=== PATIENT | female | born 1990 | race Caucasian/White ===

== ENCOUNTER 2020-05-17 10:27 | Emergency (ER) | payer OTHER, SELFPAY ==
[2020-05-17 10:47] VITALS: BP 124/77; PULSE 95; RESP 16; TEMP 36.6; O2SAT 100
--- NOTE | 2020-05-17 11:31 | ED.FEMALEGU ---
HPI - Female Genitourinary General Chief complaint: Urogenital-Female Stated complaint: Uti Time Seen by Provider: 05/17/20 11:25 Source: patient Mode of arrival: ambulatory Limitations: no limitations History of Present Illness HPI Narrative: Nubia Lazar is a 29 yo female with PMH of lupus, IBS,, PTSD, who comes to express care with complaints of dysuria and frequency for the last 2 to 3 days. She just finished a course of antibiotics for UTI less than 2 weeks ago, she took a week of Keflex Related Data Home Medications Medication Instructions Recorded Confirmed buspirone 5 mg tablet 5 mg PO TID 12/05/19 05/17/20 Allergies Allergy/AdvReac Type Severity Reaction Status Date / Time human papillomavirus Allergy Unknown Rash Verified 05/17/20 10:55 vaccine, quadr lamotrigine Allergy Unknown Unknown Verified 05/17/20 10:55 Sulfa (Sulfonamide Allergy Unknown Rash Verified 05/17/20 10:55 Antibiotics) tetanus and diphtheria Allergy Unknown Unknown Verified 05/17/20 10:55 toxoids fruit, all except oranges, Allergy Severe Other Uncoded 01/06/20 14:13 okay for fruit sauce/canned Review of Systems Review of Systems: Narrative: CONSTITUTIONAL: Denies fever, chills, sweats. EYES: Denies visual changes, redness, discharge. ENT: Denies rhinorrhea, congestion, sore throat, otalgia. CARDIOVASCULAR: Denies chest pain, palpitations, edema. RESPIRATORY: Denies dyspnea, wheezing, cough GASTROINTESTINAL: Denies abdominal pain, nausea, vomiting, diarrhea. GENITOURINARY: Has dysuria, no hematuria, abnormal discharge SKIN: Denies rash or itching. NEUROLOGIC: Denies numbness, or focal weakness. PSYCHIATRIC: Denies anxiety or depression. 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 There is no relevant family history pertinent to the presenting complaint. Exam Narrative: Exam Narrative: GENERAL: This is a well-nourished, well-developed patient, in mild distress. HEAD: normocephalic, atraumatic. EYES: Sclera clear/white. Vision is grossly intact. EARS: External ears normal. Hearing grossly intact. NOSE: External nose normal without nasal discharge, nares without redness, no rhinorrhea. THROAT: Mucous membranes moist, posterior pharynx NECK: Neck supple, non-tender CARDIOVASCULAR: Regular rate and rhythm without murmurs, gallops, or rubs. RESPIRATORY: Clear to auscultation. Breath sounds equal bilaterally. No wheezes, rales, or rhonchi. GASTROINTESTINAL: Abdomen soft, non-tender, SKIN: warm, intact with no suspicious lesions or rash, good texture and turgor. NEURO: awake, alert, and oriented to person, place and time. There were no obvious focal neurologic abnormalities. Steady gait EXTREMITIES: Normal range of motion. BACK: Mild tender without deformity Course Course Emergency Course: UA shows positive leukocytes and nitrites-started on Cipro 500 twice daily x7 days (recent use of Keflex) Patient instructed to hydrate Follow-up with PCP at your Vital Signs Vital signs: Vital Signs Temperature 97.8 F 05/17/20 10:47 Pulse Rate 95 05/17/20 10:47 Respiratory Rate 16 05/17/20 10:47 Blood Pressure 124/77 05/17/20 10:47 Pulse Oximetry 100 05/17/20 10:47 Temperature 97.8 F 05/17/20
== END 2020-05-17 11:45 | disposition home or self-care (01) ==
PROVIDERS: Emergency Provider Nurse Practitioner; PCP Family Medicine
DX: N30.01 Acute cystitis with hematuria (principal); M32.9 Systemic lupus erythematosus, unspecified; F41.9 Anxiety disorder, unspecified
CPT/HCPCS: 81003; 87077; 87086; 87088; 87186; 99213; G0463

== ENCOUNTER 2021-04-22 12:00 | Emergency (ER) | payer OTHER, SELFPAY ==
--- NOTE | ~2021-04-22 | XR_ITS ---
XR knee RT min 4V 04/22/2021 12:38 Indication: Right knee pain Procedure: 4 views right knee Comparison: No prior studies for comparison. Findings: No fracture, subluxation or dislocation. No significant joint space narrowing. No significa nt joint effusion. No foreign bodies. Impression: 1: No significant bone or joint abnormality. Reviewed, dictated and finalized at location B. Impression: 1: No significant bone or joint abnormality.
[2021-04-22 12:05] VITALS: BP 145/87; PULSE 75; RESP 16; TEMP 36.8; O2SAT 99
--- NOTE | 2021-04-22 12:19 | ED.LOWEXIN ---
HPI - Extremity Injury (Lower) General Chief Complaint: Extremity Injury, Lower Stated Complaint: INJURED R KNEE Time Seen by Provider: 04/22/21 12:19 Source: patient, RN notes reviewed and old records reviewed Mode of arrival: ambulatory Limitations: no limitations History of Present Illness HPI Narrative: 30 year old female presents to [facility] care with complaints of injury to her right knee this morning around 0930. She states that she tripped in her driveway falling directly onto her right knee on concrete with pain localized to area directly below patella. Patient states increase pain to her right knee with ambulation and bending of knee reports crunchy feeling to knee with ambulation. Patient has history of Lupus and past history of ACL repair to her left knee. Patient did take Naprosyn this morning with no improvement in her discomfort. no obvious swelling or discoloration to her right knee. MD complaint: knee injury Onset (ago): hour(s) (3 hours ago) Injury: Right: knee Type of Injury: blunt Place: home (drive way) Severity: moderate Severity scale (1-10): 6 Relieving factors: nothing Exacerbating factors: weight bearing and other (bending of right knee) Context: fall and direct blow Associated symptoms: other (states crunchy feeling when ambulates) Other symptoms: none Treatments prior to arrival: NSAIDS Related Data Home Medications Medication Instructions Recorded Confirmed buspirone 5 mg tablet 5 mg PO TID 12/05/19 04/20/21 vortioxetine 5 mg tablet 5 mg PO DAILY 03/04/21 04/20/21 bupropion HCl [Wellbutrin XL] 300 mg PO QAM 04/22/21 04/22/21 hydroxychloroquine [Plaquenil] 200 mg PO BID 04/22/21 04/22/21 Allergies Allergy/AdvReac Type Severity Reaction Status Date / Time human papillomavirus Allergy Unknown Rash Verified 04/22/21 12:20 vaccine, quadr lamotrigine Allergy Unknown Unknown Verified 04/22/21 12:20 Sulfa (Sulfonamide Allergy Unknown Rash Verified 04/22/21 12:20 Antibiotics) tetanus and diphtheria Allergy Unknown Unknown Verified 04/22/21 12:20 toxoids fruit, all except oranges, Allergy Severe Other Uncoded 04/22/21 12:20 okay for fruit sauce/canned Review of Systems Review of Systems: Narrative: CONSTITUTIONAL: Denies fever, chills, or sweats. EYES: Denies visual changes, redness, or discharge. ENT: Denies rhinorrhea, congestion, sore throat, or otalgia. CARDIOVASCULAR: Denies chest pain, palpitations, or edema. RESPIRATORY: Denies cough or dyspnea. GASTROINTESTINAL: Denies abdominal pain, nausea, vomiting, or diarrhea. GENITOURINARY: Denies dysuria or hematuria. SKIN: Denies rash or itching. MUSCULOSKELETAL: Denies back pain,positive for right knee pain with point tenderness under right patella, or myalgia. NEUROLOGIC: Denies headache, numbness, or weakness. PSYCHIATRIC: Positive for history of anxiety or depression. 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 Seronegative rheumatoid arthritis of multiple sites (~11/2016) Surgical History Surgical History (Updated 04/22/21 @ 12:44 by Naina Magallanes NP) History of cholecystectomy History of repair of anterior cruciate ligament of left knee Previous section Family History Family History Grandparent Diabetes mellitus Family history of cardiovascular disease Father Hypertension Family history of elevated bl
== END 2021-04-22 12:52 | disposition home or self-care (01) ==
PROVIDERS: Emergency Provider Registered Nurse; PCP Family Medicine
DX: S80.01XA Contusion of right knee, initial encounter (principal); W01.0XXA Fall on same level from slipping, tripping and stumbling without subsequent striking against object, initial encounter; F17.210 Nicotine dependence, cigarettes, uncomplicated
CPT/HCPCS: 73564; 99213; G0463

== ENCOUNTER 2022-03-07 14:35 | Emergency (ER) | payer OTHER, SELFPAY ==
[2022-03-07 14:38] VITALS: BP 138/82; PULSE 85; RESP 16; TEMP 36.8; O2SAT 98
--- NOTE | 2022-03-07 14:38 | ED.URI ---
HPI - URI/Sore Throat General Chief Complaint: Upper Respiratory Infection Stated Complaint: congestion cough diahhrea chills Time Seen by Provider: 03/07/22 14:38 Source: patient and RN notes reviewed History of Present Illness HPI Narrative: Patient is a 31-year-old female who presents the urgent care with complaints of nasal congestion, cough, chills and intermittent diarrhea. Patient states that started with a nasal congestion approximately 2 weeks ago, seem to improve, and then worsened on Monday. Patient did take an at home COVID test which was negative. Patient wanted to rule out influenza. No other acute complaints. Denies any recent fevers, nausea or vomiting. No other acute complaints. No acute distress noted. Patient aware of the plan of care. Some parts of this dictation were generated by voice recognition software and may contain typographical and/or grammatical inaccuracies. Related Data Home Medications Medication Instructions Recorded Confirmed azathioprine 100 mg PO DAILY 03/07/22 03/07/22 gabapentin 300 mg PO DAILY 03/07/22 03/07/22 Allergies Allergy/AdvReac Type Severity Reaction Status Date / Time human papillomavirus Allergy Unknown Rash Verified 03/07/22 14:47 vaccine, quadr lamotrigine Allergy Unknown Unknown Verified 03/07/22 14:47 Sulfa (Sulfonamide Allergy Unknown Rash Verified 03/07/22 14:47 Antibiotics) tetanus and diphtheria Allergy Unknown Unknown Verified 03/07/22 14:47 toxoids fruit, all except oranges, Allergy Severe Other Uncoded 04/22/21 12:20 okay for fruit sauce/canned Review of Systems Review of Systems: CONSTITUTIONAL: Reports of chills and sweats EYES: Denies visual changes, redness, or discharge. ENT: Reports of nasal congestion, postnasal drainage CARDIOVASCULAR: Denies chest pain, palpitations, or edema. RESPIRATORY: Reports of intermittent cough without dyspnea GASTROINTESTINAL: Reports of loose stools without abdominal pain, nausea or vomiting GENITOURINARY: Denies dysuria or hematuria. SKIN: Denies rash or itching. MUSCULOSKELETAL: Denies back pain, joint pain, or myalgia. NEUROLOGIC: Denies headache, numbness, or weakness. All other systems reviewed are negative, except as documented in HPI. [facility] Past Medical History Medical History (Updated 03/07/22 @ 15:08 by Marni E. Springman, FURNITURE SERVICER) Bilateral carpal tunnel syndrome Hidradenitis suppurativa Low back pain Muscle strain of left upper back Pustulosis palmaris et plantaris SAPHO syndrome (~11/2016) Synovitis, acne, pustulosis, hyperostosis, osteitis (SAPHO) syndrome is a rare chronic inflammatory disorder of bone, joint, and skin characterized by synovitis, osteitis, hyperostosis, and enthesitis, typically with pain, swelling, and tenderness in affected areas. Seronegative rheumatoid arthritis of multiple sites (~11/2016) Surgical History Surgical History (Updated 04/22/21 @ 12:44 by Naina Magallanes NP) History of cholecystectomy History of repair of anterior cruciate ligament of left knee Previous section Family History Family History Grandparent Diabetes mellitus Family history of cardiovascular disease Father Hypertension Family history of elevated blood lipids Social History Social History (Updated 04/22/21 @ 12:48 by Naina Magallanes NP) Smoking packs per day: 0.5 Smoking cigarettes per day: 10.0 Years smoked: 6 Smoking pack-years: 3.00 Smoking status: Current every day smoker Tobacco type: cigarettes Alcohol intake: current Alcohol use details: social rare Substance use: current Substance use type: marijuana Gender identity (if verbalized by the patient): Female Comments At the time of my signature, I reviewed and agree with the nursing past medical, surgical, social, and family history. There is no relevant family history pertinent to the patient complaint. Exam Narrativ
== END 2022-03-07 15:10 | disposition home or self-care (01) ==
PROVIDERS: Emergency Provider Nurse Practitioner Family; PCP Family Medicine
DX: J00 Acute nasopharyngitis [common cold] (principal); J45.909 Unspecified asthma, uncomplicated; F17.210 Nicotine dependence, cigarettes, uncomplicated; M06.09 Rheumatoid arthritis without rheumatoid factor, multiple sites
CPT/HCPCS: 87804; 99213; G0463

== ENCOUNTER 2022-03-14 10:26 | Emergency (ER) | payer OTHER, SELFPAY ==
--- NOTE | ~2022-03-14 | XR_ITS ---
EXAMINATION: XR chest 2V DATE: 03/14/2022 12:39 INDICATION: Shortness of breath TECHNIQUE: PA and lateral views of the chest were obtained. COMPARISON: Chest radiograph dated 01/21/2019 FINDINGS: The lungs remain clear with no focal airspace opacities, pulmonary edema, pleural effusion or pneumot horax. The cardiomediastinal silhouette is normal. Cholecystectomy clips in right upper quadrant. IMPRESSION: 1. No acute cardiopulmonary disease. Reviewed, dictated and finalized at location A.
[2022-03-14 10:42] VITALS: BP 170/91; PULSE 84; RESP 18; TEMP 36.5; O2SAT 99
[2022-03-14 12:28] VITALS: BP 154/102; PULSE 72; RESP 18; O2SAT 100
--- NOTE | 2022-03-14 12:34 | ED.GENADULT ---
HPI - General Adult General Chief complaint: Upper Respiratory Infection Stated complaint: sick x 3 weeks Time Seen by Provider: 03/14/22 11:25 Source: patient and RN notes reviewed Mode of arrival: ambulatory Limitations: no limitations History of Present Illness HPI narrative: 31-year-old female smoker with history of asthma presents to the emergency department for evaluation of cough and cold symptoms that have been ongoing for the past 3 weeks. Patient states that for this period time she has had nasal congestion cough and intermittent shortness of breath. Patient does use an albuterol inhaler but also does continue to smoke. Patient did have follow-up with her primary care physician and was started on a course of prednisone. Patient was also tested for COVID and flu which were both negative. Related Data Home Medications Medication Instructions Recorded Confirmed azathioprine 100 mg PO DAILY 03/07/22 03/07/22 gabapentin 300 mg PO DAILY 03/07/22 03/07/22 Allergies Allergy/AdvReac Type Severity Reaction Status Date / Time human papillomavirus Allergy Unknown Rash Verified 03/07/22 14:47 vaccine, quadr lamotrigine Allergy Unknown Unknown Verified 03/07/22 14:47 Sulfa (Sulfonamide Allergy Unknown Rash Verified 03/07/22 14:47 Antibiotics) tetanus and diphtheria Allergy Unknown Unknown Verified 03/07/22 14:47 toxoids fruit, all except oranges, Allergy Severe Other Uncoded 04/22/21 12:20 okay for fruit sauce/canned Review of Systems Review of Systems: CONSTITUTIONAL: Denies fever, chills, or sweats. EYES: Denies visual changes, redness, or discharge. ENT: Denies rhinorrhea, congestion, sore throat, or otalgia. CARDIOVASCULAR: Denies chest pain, palpitations, or edema. RESPIRATORY: See HPI GASTROINTESTINAL: Denies abdominal pain, nausea, vomiting, or diarrhea. GENITOURINARY: Denies dysuria or hematuria. SKIN: Denies rash or itching. MUSCULOSKELETAL: Denies back pain, joint pain, or myalgia. NEUROLOGIC: Denies headache, numbness, or weakness. [facility] Past Medical History Medical History (Updated 03/14/22 @ 13:01 by Alpesh Steward MD) Bilateral carpal tunnel syndrome Hidradenitis suppurativa Low back pain Muscle strain of left upper back Pustulosis palmaris et plantaris SAPHO syndrome (~11/2016) Synovitis, acne, pustulosis, hyperostosis, osteitis (SAPHO) syndrome is a rare chronic inflammatory disorder of bone, joint, and skin characterized by synovitis, osteitis, hyperostosis, and enthesitis, typically with pain, swelling, and tenderness in affected areas. Seronegative rheumatoid arthritis of multiple sites (~11/2016) Surgical History Surgical History (Updated 04/22/21 @ 12:44 by Naina Magallanes NP) History of cholecystectomy History of repair of anterior cruciate ligament of left knee Previous section Family History Family History Grandparent Diabetes mellitus Family history of cardiovascular disease Father Hypertension Family history of elevated blood lipids Social History Social History (Updated 04/22/21 @ 12:48 by Naina Magallanes NP) Smoking packs per day: 0.5 Smoking cigarettes per day: 10.0 Years smoked: 6 Smoking pack-years: 3.00 Smoking status: Current every day smoker Tobacco type: cigarettes Alcohol intake: current Alcohol use details: social rare Substance use: current Substance use type: marijuana Gender identity (if verbalized by the patient): Female Exam Narrative: APPEARANCE: Well appearing, no pain, no distress, well-nourished. HEAD: normocephalic, atraumatic. EYES: PERRLA/EOMI, conjunctivae clear. NOSE: Normal no drainage EARS:TMS clear with good light reflex. THROAT: Pharynx clear, no exudate. NECK: Supple. No adenopathy, no masses. RESPIRATORY: Airway patent, respirations nonlabored. Clear to auscultation bilaterally, no rales, rhonchi, wheezing. CARDIOVAS
[2022-03-14 13:05] VITALS: PULSE 88; RESP 18; O2SAT 98
== END 2022-03-14 13:05 | disposition home or self-care (01) ==
PROVIDERS: Emergency Provider Emergency Medicine; PCP Family Medicine
DX: J18.9 Pneumonia, unspecified organism (principal); R09.81 Nasal congestion; J45.909 Unspecified asthma, uncomplicated; F17.210 Nicotine dependence, cigarettes, uncomplicated; M04.8 Other autoinflammatory syndromes; M06.09 Rheumatoid arthritis without rheumatoid factor, multiple sites
CPT/HCPCS: 71046; 99283

== ENCOUNTER 2025-01-23 11:12 | Emergency (ER) | payer MEDICAID, SELFPAY ==
[2025-01-23 11:16] VITALS: BP 144/86; PULSE 84; RESP 20; TEMP 36.6; O2SAT 100
--- NOTE | 2025-01-23 11:43 | ED.GENADULT ---
HPI - General Adult General Chief complaint: Nausea/Vomiting/Diarrhea Stated complaint: no appetite/nausea Time Seen by Provider: 01/23/25 11:44 Source: patient, RN notes reviewed and old records reviewed Mode of arrival: ambulatory Limitations: no limitations History of Present Illness HPI narrative: 34-year-old female presents to the [facility] with complaints of nausea and vomiting. Patient also reports occasional abdominal cramping. States that she is under a lot more stress than normal, states that her significant other and her broke up approximately 10 days ago. Patient reports Monday and January had some nausea and vomiting issues Patient also reports last Monday had some nausea vomiting issues as well as had some vomiting today. No treatment prior to arrival. Denies any significant abdominal pain. No CVA tenderness. No urinary symptoms Patient reports history of IBS Onset (ago): day(s) () Related Data Allergies Allergy/AdvReac Type Severity Reaction Status Date / Time human papillomavirus Allergy Unknown Rash Verified 01/23/25 11:21 vaccine, quadr lamotrigine Allergy Unknown Unknown Verified 01/23/25 11:21 Sulfa (Sulfonamide Allergy Unknown Rash Verified 01/23/25 11:21 Antibiotics) tetanus and diphtheria Allergy Unknown Unknown Verified 01/23/25 11:21 toxoids fruit, all except oranges, Allergy Severe Other Uncoded 01/23/25 11:21 okay for fruit sauce/canned Review of Systems Review of Systems: All systems reviewed & are unremarkable except as noted in HPI and below Constitutional: Constitutional: Reports no additional constitutional complaints ENT: Reports system reviewed and no additional complaints, except as documented Cardiovascular: Cardiovascular: Reports no additional cardiovascular complaints, Denies chest pain and Denies dyspnea Respiratory: Respiratory: Reports no additional respiratory complaints, Denies chest congestion, Denies cough and Denies dyspnea Gastrointestinal: Gastrointestinal: Reports as per HPI, Reports nausea and Reports vomiting Musculoskeletal: Musculoskeletal: Reports no additional musculoskeletal complaints Integumentary/Breasts: Skin/Breast: Reports system reviewed and no additional complaints, except as docu PMFSH Past Medical History Medical History Vaginismus Hidradenitis Yeast vaginitis Bartholin's gland abscess Low back pain Muscle strain of left upper back Libido, decreased Hidradenitis suppurativa Seronegative rheumatoid arthritis of multiple sites (~11/2016) SAPHO syndrome (~11/2016) Synovitis, acne, pustulosis, hyperostosis, osteitis (SAPHO) syndrome is a rare chronic inflammatory disorder of bone, joint, and skin characterized by synovitis, osteitis, hyperostosis, and enthesitis, typically with pain, swelling, and tenderness in affected areas. Pustulosis palmaris et plantaris Bilateral carpal tunnel syndrome Surgical History Surgical History History of repair of anterior cruciate ligament of left knee Previous section History of cholecystectomy Family History Family History Grandparent Diabetes mellitus Family history of cardiovascular disease Father Hypertension Family history of elevated blood lipids Social History Social History Smoking packs per day: 0.5 Smoking cigarettes per day: 10.0 Years smoked: 6 Smoking pack-years: 3.00 Smoking status: Never smoker Tobacco type: cigarettes Alcohol intake: never Alcohol use details: rare Substance use: current Substance use type: marijuana Last use: today 08/22/24 Do You Feel Safe in your Home?: Yes Lack of Transportation: No Lack of Food: Sometimes True Current Housing: I Have Housing Concerned About Future Housing: No Difficulty Paying Gas/Electric Bills: No Difficulty Paying for Meds: No Currently Unemployed: No Education: Bachelor's Degree Difficulty w/ Childcare or Family Care: No Living arrangements: with family Gender identity (if verbalized by the patient): Female Comments At the time of my signature, I reviewed and agree with the nursing past medical, surgical, social, and family history. There is no relevant family history pertinent to the patient complaint. Exam Const: General: cooperative, comfortable, no acute distress, well developed, alert, tired appearing and well nourished Nutritional Appearance: well nourished and obese Orientation/consciousness: patient oriented x3 Limitations: no limitations HENMT: Head: normal to inspection Ears: hearing grossly normal bilaterally, external ears normal, TM's normal bilaterally, EAC's normal, mastoids normal and no periauricular adenopathy Mouth: Yes Normal oral and palatal mucosa present, Yes lip normal, Yes tongue normal and Yes moist mucous membranes Throat: posterior oropharynx normal, uvula midline and no uvular edema Eyes: General: appearance normal, both eyes and all related structures Alignment and Position: alignment normal Neck: Neck: normal visual inspection, full ROM, no lymphadenopathy and no meningeal signs Chest: Chest palpation & inspection: normal inspection of the chest Resp: Effort & Inspection: normal respiratory effort and able to speak in complete sentences Auscultation: clear to auscultation bilaterally, no crackles, no rales, no rhonchi and no wheezes Cardio: Rate: regular rate GI: GI Palp: No abdominal tenderness and Yes Soft to palpation Skin: General skin exam: normal color and no rashes or lesions noted Neuro: General: patient oriented x3, gait normal, moves all extremities and no meningeal signs Cognition (Neuro): normal cognition Speech: normal speech Gait exam (Neuro): Normal gait present Extrem: General: normal to inspection, full ROM, capillary refill normal and normal gait Psych: Appearance: grossly normal and well kempt Mental Status: mental status grossly normal Speech and movement: Normal speech and movement present and Clear speech present Affect: normal affect Attitude: cooperative Course Course Level of Care: Express Care Visit Vital Signs Vital signs: Vital Signs Temperature 97.9 F 01/23/25 11:16 Pulse Rate 84 01/23/25 11:16 Respiratory Rate 20 01/23/25 11:16 Blood Pressure 144/86 H 01/23/25 11:16 Pulse Oximetry 100 01/23/25 11:16 Oxygen Delivery Room Air 01/23/25 11:16 Temperature 97.9 F 01/23/25 11:16 Pulse Rate 84 01/23/25 11:16 Respiratory Rate 20 01/23/25 11:16 Blood Pressure 144/86 H 01/23/25 11:16 Pulse Oximetry 100 01/23/25 11:16 Oxygen Delivery Room Air 01/23/25 11:16 Reviewed Medical Decision Making MDM Narrative Medical decision making narrative: Patient sitting comfortably in exam room. Nontoxic, vitals stable. Patient in no acute distress Patient presents for nausea vomiting. Reports that it started after harder significant other broke up. Reports on Tuesdays and she gets nauseous and has vomiting. Had vomiting today. Reports epigastric cramping. Denies any other pain. Unable to reproduce pain with palpation discussed signs and symptoms, conservative treatment. 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 Patient has appointment with primary care provider in 13 days. Discharge instructions reviewed with patient, as well as provided in writing per nursing staff. The instructions also include specific and strict return/GO TO THE ER as well as f/u information. All questions have been answered, and the patient deny any further questions with discharge and discharge plan. Some parts of this dictation were generated by voice recognition software and may contain typographical and/or grammatical inaccuracies. Differential Diagnosis Differential Diagnosis: Anxiety, depression IBS, acute nausea vomiting, gastroenteritis Medical Records Medical records reviewed: Yes I reviewed the external patient's medical records. Vital Signs Vital Signs: Vital Signs Temperature 97.9 F 01/23/25 11:16 Pulse Rate 84 01/23/25 11:16 Respiratory Rate 20 01/23/25 11:16 Blood Pressure 144/86 H 01/23/25 11:16 Pulse Oximetry 100 01/23/25 11:16 Oxygen Delivery Room Air 01/23/25 11:16 Temperature 97.9 F 01/23/25 11:16 Pulse Rate 84 01/23/25 11:16 Respiratory Rate 20 01/23/25 11:16 Blood Pressure 144/86 H 01/23/25 11:16 Pulse Oximetry 100 01/23/25 11:16 Oxygen Delivery Room Air 01/23/25 11:16 Reviewed Lab Data Lab results reviewed: Yes I reviewed the patient's lab results. Labs: Reviewed Critical Care Time Critical Care Time Critical Care Time: No Discharge Plan Discharge Clinical Impression: History of IBS Nausea & vomiting Qualifiers: Vomiting type: unspecified Qualified Code(s): R11.2 - Nausea with vomiting, unspecified Patient Disposition: Home, Self-Care Condition: Stable Instructions: Antibiotic Form, Acute Nausea and Vomiting (DC) Additional Instructions: keep your diet very simple. Nothing fried, greasy, spicy are highly processed. Increase your water intake. Include Gatorade and Pedialyte. Avoid anything caffeinated, carbonated or high in sugar take Pepcid daily on an empty stomach take Zofran as needed for nausea follow-up with your primary care provider as already scheduled for new or worsening symptoms go directly to the emergency room Patient Language: [place] Prescriptions: New famotidine [Pepcid] 20 mg tablet 20 mg PO DAILY Qty: 30 0RF ondansetron 4 mg tablet,disintegrating 4 mg PO Q8H PRN (Reason: nausea and vomiting) Qty: 7 0RF No Action buspirone 5 mg tablet 10 mg PO TID PRN (Reason: anxiety) Qty: 60 5RF Zepbound 2.5 mg/0.5 mL pen injector 2.5 mg subcut WEEKLY Qty: 2 5RF albuterol sulfate 90 mcg/actuation HFA aerosol inhaler 2 puff INHALATION QID PRN (Reason: shortness of breath or wheezing) Qty: 8 2RF prednisone 50 mg tablet 50 mg PO DAILY Qty: 5 0RF azithromycin 250 mg tablet See Rx Instructions PO .COMPLEX Qty: 6 0RF Rx Instructions: For 250 mg dose pack: take 500 mg today (day 1), then 250 mg for 4 days (days 2-5) PO codeine-guaifenesin 10-100 mg/5 mL liquid 5 ml PO Q6H PRN (Reason: cough) Qty: 120 0RF gabapentin 300 mg capsule 300 mg PO DAILY Qty: 90 2RF norethindrone-e.estradiol-iron [Loestrin Fe 1.5/30 (28-Day)] 1.5 mg-30 mcg (21)/75 mg (7) tablet 1 tablet PO DAILY Qty: 84 2RF Addyi 100 mg tablet 100 mg PO QHS Qty: 30 3RF Follow-up/Referrals: Marissa Parrish MD [Primary Care Provider] - 1 Week ([facility] care follow up ) Stand Alone Forms: Work/School Release IP Time of Disposition: 11:59
--- OUTSIDE RECORDS SUMMARY | 2025-01-23 13:07 | XMS_ITS | Data Portability ---
Author Organization [facility] SYLVIEJanet Address [address] [place] [address] Assessment No assessment recorded. Plan of Treatment Reminders Order Date Submit Date Provider Last Modified By Organization Details Last Modified Time Details Appointments None recorded. Lab pap, IG + reflex HR HPV (16+18) 2016 017 LIVE [facility], [address] [place], [place] [address]kaden Rocky, [facility] [address], [place], [address], 7 12:09:10 bacterial vaginosis + vaginitis panel, vaginal 2016 017 LIVE [facility], [address] [facility] [address], [address], [place], [address], 7 07:14:53 CBC w/ auto diff 2016 017 LIVE [facility], [address] [facility] [address], [address], [place], [address], 7 07:13:04 bacterial vaginosis + vaginitis panel, vaginal 2016 017 LIVE [facility], [address] [facility], [address], [place], [address], 7 07:06:57 urinalysis , dipstick 2015 016 LIVE In-Office Order, Internal Use Only DO Not Attach Compendium DO Not Attach Compendium, Do Not Delete/merge, [id number] 6 18:24:47 Referral None recorded. Procedures None recorded. Surgeries None recorded. Imaging None recorded. Medication Orders Sprintec (28) 0.25 mg-35 mcg tablet 2016 017 okolade [id number], [address], [place], [id number], 7 16:10:59 Patient TargetsNo targets recorded. Patient Instructions Encounter Date Encounter Id Patient Instructions Last Modified By Organization Details Last Modified Time 11/08/2016 [id number] preeclampsia: care instructions [email or web address] Not available 11/09/2016 10:19:03 Will schedule th e patient for IOL for mild pre-eclampsia. Patient was instructed to go labor and delivery for IOL immediately. [email or web address] Not available 11/08/2016 17:39:42 11/30/2016 [id number] Vlad were removed. Patient will follow up for care in 6 weeks. Rx for breast pump was given to the patient as per patient request. [email or web address] Not available 11/30/2016 10:48:15 01/11/2017 [id number] edinburgh depression scale* LIVE Not available 01/11/2017 18:11:37 learning about control: combination pills [email or web address] Not available 01/11/2017 16:10:59 Rx for Sprintec was sent to the pharmacy. Safe sex counseling was done. Patient was advised against the use of alcohol, tobacco and drugs. BSE was reviewed and recommended. Excercise and weight loss was recommended. Side effect profile of OCPs was discussed with the patient. Patient was informed of possible side effects including but not limited to blood clots, HTN, liver disease and gallbladder disease. [email or web address] Not available 01/11/2017 15:31:10 01/13/2017 [id number] heavy menstrual periods: care instructions [email or web address] Not available 01/13/2017 18:08:59 CBC was ordered. Patient was started on OCPs 3 days prior. [email or web address] Not available 01/13/2017 17:48:48 09/05/2017 [id number] Safe sex counseling was done. Vaginitis panel was ordered. Patient was advised against the use of alcohol, tobacco and drugs. Pap smear was sent. Excercise and weight loss was reviewed. BSE was reviewed and recommended. [email or web address] Not available 09/05/2017 17:49:44 Reason for Referral None Reported. Results Created Date Observation Date Name Description Value Unit Range Abnormal Flag Note LastModifiedBy Organization Detail LastModifiedTime 01/12/20 17 01/11/2017 edinb urgh postn atal depre ssion scale * Score 6/10 Not Available In-Office Order Internal Use Only DO Not Attach Compendium DO Not Attach Compendium, Do Not Delete/merge, [id number] 01/11/2017 15:09:57 11/08/20 16 11/08/2016 urina lysis , dipst ick Leukocytes Small Not Available In-Offi ce Order Internal Use Only DO Not Attach Compendium DO Not Attach Compendium, Do Not Delete/merge, [id number] 11/08/2016 16:32:56 11/08/20 16 11/08/2016 urina lysis , dipst ick Nitrite negati ve Not Available In-Office Order Internal Use Only DO Not Attach Compendium DO Not Attach Compendium, Do Not Delete/merge, [id number] 11/08/2016 16:32:56 11/08/20 16 11/08/2016 urina lysis , dipst ick Urobilinogen .2 Not Available In-Of fice Order Internal Use Only DO Not Attach Compendium DO Not Attach Compendium, Do Not Delete/merge, [id number] 11/08/2016 16:32:56 11/08/20 16 11/08/2016 urina lysis , dipst ick Protein 30 Not Available In-Office Order Internal Use Only DO Not Attach Compendium DO Not Attach Compendium, Do Not Delete/merge, [id number] 11/08/2016 16:32:56 11/08/20 16 11/08/2016 urina lysis , dipst ick pH 7.0 Not Available In-Office Order Internal Use Only DO Not Attach Compendium DO Not Attach Compendium, Do Not Delete/merge, [id number] 11/08/2016 16:32:56 11/08/20 16 11/08/2016 urina lysis , dipst ick Blood Negati ve Not Available In-Office Order Internal Use Only DO Not Attach Compendium DO Not Attach Compendium, Do Not Delete/merge, [id number] 11/08/2016 16:32:56 11/08/20 16 11/08/2016 urina lysis , dipst ick Specific [place] 1.020 Not Available In-Off ice Order Internal Use Only DO Not Attach Compendium DO Not Attach Compendium, Do Not Delete/merge, 11/08/2016 16:32:56 11/08/20 16 11/08/2016 urina lysis , dipst ick Ketone Large (80) Not Available In-Office Order Internal Use Only DO Not Attach Compendium DO Not Attach Compendium, Do Not Delete/merge, 11/08/2016 16:32:56 11/08/20 16 11/08/2016 urina lysis , dipst ick Bilirubin Negati ve Not Available In-Office Order Internal Use Only DO Not Attach Compendium DO Not Attach Compendium, Do Not Delete/merge, 11/08/2016 16:32:56 11/08/20 16 11/08/2016 urina lysis , dipst ick Glucose Negati ve Not Available In-Office Order Internal Use Only DO Not Attach Compendium DO Not Attach Compendium, Do Not Delete/merge, 11/08/2016 16:32:56 11/08/20 16 11/08/2016 urina lysis , dipst ick Appearance Slight ly Cloudy Not Available In-Office Order Internal Use Only DO Not Attach Compendium DO Not Attach Compendium, Do Not Delete/merge, 11/08/2016 16:32:56 11/08/20 16 11/08/2016 urina lysis , dipst ick Color Pale Yellow Not Available In-Office Order Internal Use Only DO Not Attach Compendium DO Not Attach Compendium, Do Not Delete/merge, 11/08/2016 16:32:56 11/01/20 16 11/01/2016 urina lysis , dipst ick Leukocytes Trace Not Available In-Offi ce Order Internal Use Only DO Not Attach Compendium DO Not Attach Compendium, Do Not Delete/merge, 11/01/2016 16:07:43 11/01/20 16 11/01/2016 urina lysis , dipst ick Nitrite negati ve Not Available In-Office Order Internal Use Only DO Not Attach Compendium DO Not Attach Compendium, Do Not Delete/merge, [id number] 11/01/2016 16:07:43 11/01/20 16 11/01/2016 urina lysis , dipst ick Urobilinogen 1 Not Available In-Of fice Order Internal Use Only DO Not Attach Compendium DO Not Attach Compendium, Do Not Delete/merge, [id number] 11/01/2016 16:07:43 11/01/20 16 11/01/2016 urina lysis , dipst ick Protein 30 Not Available In-Office Order Internal Use Only DO Not Attach Compendium DO Not Attach Compendium, Do Not Delete/merge, [id number] 11/01/2016 16:07:43 11/01/20 16 11/01/2016 urina lysis , dipst ick pH 7.0 Not Available In-Office Order Internal Use Only DO Not Attach Compendium DO Not Attach Compendium, Do Not Delete/merge, [id number] 11/01/2016 16:07:43 11/01/20 16 11/01/2016 urina lysis , dipst ick Blood Negati ve Not Available In-Office Order Internal Use Only DO Not Attach Compendium DO Not Attach Compendium, Do Not Delete/merge, [id number] 11/01/2016 16:07:43 11/01/20 16 11/01/2016 urina lysis , dipst ick Specific [place] 1.020 Not Available In-Off ice Order Internal Use Only DO Not Attach Compendium DO Not Attach Compendium, Do Not Delete/merge, [id number] 11/01/2016 16:07:43 11/01/20 16 11/01/2016 urina lysis , dipst ick Ketone Negati ve Not Available In-Office Order Internal Use Only DO Not Attach Compendium DO Not Attach Compendium, Do Not Delete/merge, [id number] 11/01/2016 16:07:43 11/01/20 16 11/01/2016 urina lysis , dipst ick Bilirubin Negati ve Not Available In-Office Order Internal Use Only DO Not Attach Compendium DO Not Attach Compendium, Do Not Delete/merge, [id number] 11/01/2016 16:07:43 11/01/20 16 11/01/2016 urina lysis , dipst ick Glucose Negati ve Not Available In-Office Order Internal Use Only DO Not Attach Compendium DO Not Attach Compendium, Do Not Delete/merge, [id number] 11/01/2016 16:07:43 11/01/20 16 11/01/2016 urina lysis , dipst ick Appearance Clear Not Available In-Offi ce Order Internal Use Only DO Not Attach Compendium DO Not Attach Compendium, Do Not Delete/merge, [id number] 11/01/2016 16:07:43 11/01/20 16 11/01/2016 urina lysis , dipst ick Color Yellow Not Available In-Office Order Internal Use Only DO Not Attach Compendium DO Not Attach Compendium, Do Not Delete/merge, [id number] 11/01/2016 16:07:43 10/25/20 16 10/25/2016 urina lysis , dipst ick Leukocytes Small Not Available In-Offi ce Order Internal Use Only DO Not Attach Compendium DO Not Attach Compendium, Do Not Delete/merge, 10/25/2016 16:29:35 10/25/20 16 10/25/2016 urina lysis , dipst ick Nitrite negati ve Not Available In-Office Order Internal Use Only DO Not Attach Compendium DO Not Attach Compendium, Do Not Delete/merge, 10/25/2016 16:29:35 10/25/20 16 10/25/2016 urina lysis , dipst ick Urobilinogen .2 Not Available In-Of fice Order Internal Use Only DO Not Attach Compendium DO Not Attach Compendium, Do Not Delete/merge, 10/25/2016 16:29:35 10/25/20 16 10/25/2016 urina lysis , dipst ick Protein Negati ve Not Available In-Office Order Internal Use Only DO Not Attach Compendium DO Not Attach Compendium, Do Not Delete/merge, 10/25/2016 16:29:35 10/25/20 16 10/25/2016 urina lysis , dipst ick pH 7.5 Not Available In-Office Order Internal Use Only DO Not Attach Compendium DO Not Attach Compendium, Do Not Delete/merge, 10/25/2016 16:29:35 10/25/20 16 10/25/2016 urina lysis , dipst ick Blood Non-He molyze d: Trace Not Available In-Office Order Internal Use Only DO Not Attach Compendium DO Not Attach Compendium, Do Not Delete/merge, 10/25/2016 16:29:35 10/25/20 16 10/25/2016 urina lysis , dipst ick Specific [place] 1.015 Not Available In-Off ice Order Internal Use Only DO Not Attach Compendium DO Not Attach Compendium, Do Not Delete/merge, 10/25/2016 16:29:35 10/25/20 16 10/25/2016 urina lysis , dipst ick Ketone Negati ve Not Available In-Office Order Internal Use Only DO Not Attach Compendium DO Not Attach Compendium, Do Not Delete/merge, 10/25/2016 16:29:35 10/25/20 16 10/25/2016 urina lysis , dipst ick Bilirubin Negati ve Not Available In-Office Order Internal Use Only DO Not Attach Compendium DO Not Attach Compendium, Do Not Delete/merge, 10/25/2016 16:29:35 10/25/20 16 10/25/2016 urina lysis , dipst ick Glucose Negati ve Not Available In-Office Order Internal Use Only DO Not Attach Compendium DO Not Attach Compendium, Do Not Delete/merge, 10/25/2016 16:29:35 10/25/20 16 10/25/2016 urina lysis , dipst ick Appearance Slight ly Cloudy Not Available In-Office Order Internal Use Only DO Not Attach Compendium DO Not Attach Compendium, Do Not Delete/merge, 10/25/2016 16:29:35 10/25/20 16 10/25/2016 urina lysis , dipst ick Color Pale Yellow Not Available In-Office Order Internal Use Only DO Not Attach Compendium DO Not Attach Compendium, Do Not Delete/merge, 10/25/2016 16:29:35 10/18/20 16 10/18/2016 urina lysis , dipst ick Leukocytes Negati ve Not Available In-Office Order Internal Use Only DO Not Attach Compendium DO Not Attach Compendium, Do Not Delete/merge, 10/18/2016 14:25:07 10/18/20 16 10/18/2016 urina lysis , dipst ick Nitrite negati ve Not Available In-Office Order Internal Use Only DO Not Attach Compendium DO Not Attach Compendium, Do Not Delete/merge, [id number] 10/18/2016 14:25:07 10/18/20 16 10/18/2016 urina lysis , dipst ick Urobilinogen .2 Not Available In-Of fice Order Internal Use Only DO Not Attach Compendium DO Not Attach Compendium, Do Not Delete/merge, [id number] 10/18/2016 14:25:07 10/18/20 16 10/18/2016 urina lysis , dipst ick Protein Negati ve Not Available In-Office Order Internal Use Only DO Not Attach Compendium DO Not Attach Compendium, Do Not Delete/merge, [id number] 10/18/2016 14:25:07 10/18/20 16 10/18/2016 urina lysis , dipst ick pH 7.0 Not Available In-Office Order Internal Use Only DO Not Attach Compendium DO Not Attach Compendium, Do Not Delete/merge, [id number] 10/18/2016 14:25:07 10/18/20 16 10/18/2016 urina lysis , dipst ick Blood Small Not Available In-Office Order Internal Use Only DO Not Attach Compendium DO Not Attach Compendium, Do Not Delete/merge, [id number] 10/18/2016 14:25:07 10/18/20 16 10/18/2016 urina lysis , dipst ick Specific [place] 1.020 Not Available In-Off ice Order Internal Use Only DO Not Attach Compendium DO Not Attach Compendium, Do Not Delete/merge, [id number] 10/18/2016 14:25:07 10/18/20 16 10/18/2016 urina lysis , dipst ick Ketone Negati ve Not Available In-Office Order Internal Use Only DO Not Attach Compendium DO Not Attach Compendium, Do Not Delete/merge, [id number] 10/18/2016 14:25:07 10/18/20 16 10/18/2016 urina lysis , dipst ick Bilirubin Negati ve Not Available In-Office Order Internal Use Only DO Not Attach Compendium DO Not Attach Compendium, Do Not Delete/merge, [id number] 10/18/2016 14:25:07 10/18/20 16 10/18/2016 urina lysis , dipst ick Glucose Negati ve Not Available In-Office Order Internal Use Only DO Not Attach Compendium DO Not Attach Compendium, Do Not Delete/merge, [id number] 10/18/2016 14:25:07 10/10/20 16 10/10/2016 urina lysis , dipst ick Leukocytes Trace Not Available In-Offi ce Order Internal Use Only DO Not Attach Compendium DO Not Attach Compendium, Do Not Delete/merge, [id number] 10/10/2016 15:52:18 10/10/20 16 10/10/2016 urina lysis , dipst ick Nitrite negati ve Not Available In-Office Order Internal Use Only DO Not Attach Compendium DO Not Attach Compendium, Do Not Delete/merge, [id number] 10/10/2016 15:52:18 10/10/20 16 10/10/2016 urina lysis , dipst ick Urobilinogen .2 Not Available In-Of fice Order Internal Use Only DO Not Attach Compendium DO Not Attach Compendium, Do Not Delete/merge, [id number] 10/10/2016 15:52:18 10/10/20 16 10/10/2016 urina lysis , dipst ick Protein Trace Not Available In-Office Order Internal Use Only DO Not Attach Compendium DO Not Attach Compendium, Do Not Delete/merge, [id number] 10/10/2016 15:52:18 10/10/20 16 10/10/2016 urina lysis , dipst ick pH 7.0 Not Available In-Office Order Internal Use Only DO Not Attach Compendium DO Not Attach Compendium, Do Not Delete/merge, [id number] 10/10/2016 15:52:18 10/10/20 16 10/10/2016 urina lysis , dipst ick Blood Large Not Available In-Office Order Internal Use Only DO Not Attach Compendium DO Not Attach Compendium, Do Not Delete/merge, [id number] 10/10/2016 15:52:18 10/10/20 16 10/10/2016 urina lysis , dipst ick Specific [place] 1.020 Not Available In-Off ice Order Internal Use Only DO Not Attach Compendium DO Not Attach Compendium, Do Not Delete/merge, [id number] 10/10/2016 15:52:18 10/10/20 16 10/10/2016 urina lysis , dipst ick Ketone Negati ve Not Available In-Office Order Internal Use Only DO Not Attach Compendium DO Not Attach Compendium, Do Not Delete/merge, [id number] 10/10/2016 15:52:18 10/10/20 16 10/10/2016 urina lysis , dipst ick Bilirubin Negati ve Not Available In-Office Order Internal Use Only DO Not Attach Compendium DO Not Attach Compendium, Do Not Delete/merge, [id number] 10/10/2016 15:52:18 10/10/20 16 10/10/2016 urina lysis , dipst ick Glucose Negati ve Not Available In-Office Order Internal Use Only DO Not Attach Compendium DO Not Attach Compendium, Do Not Delete/merge, [id number] 10/10/2016 15:52:18 10/10/20 16 10/12/2016 bacte rial vagin osis + vagin itis panel , vagin al trich vag by ZULMA NEGATI VE negati ve Not Available [facility] ([facility]) [address] [place], [address], 10/13/2016 07:14:20 10/10/20 16 10/12/2016 bacte rial vagin osis + vagin itis panel , vagin al chlamydia trachomatis, ZULMA NEGATI VE negati ve Not Available [facility] ([facility]) [address] [place], [address], 10/13/2016 07:14:20 10/10/20 16 10/12/2016 bacte rial vagin osis + vagin itis panel , vagin al neisseria gonorrhoeae, ZULMA NEGATI VE negati ve Not Available [facility] ([facility]) [address] [place], [address], 10/13/2016 07:14:20 10/10/20 16 10/13/2016 bacte rial vagin osis + vagin itis panel , vagin al atopobium vaginae LOW - 0 score Not Available [facility] ([facility]) [address] [place], [address], 10/13/2016 07:14:20 10/10/20 16 10/13/2016 bacte rial vagin osis + vagin itis panel , vagin al bvab 2 LOW - 0 score Not Available [facility] ([facility]) [address] [place], [address], 10/13/2016 07:14:20 10/10/20 16 10/13/2016 bacte rial vagin osis + vagin itis panel , vagin al megasphaera 1 LOW - 0 score CALCU LATE TOTAL SCORE BY SKY Motta THE 3 INDIV IDUAL BACTE RIAL VAGIN OSIS (BV) MARKE R SCORE S TOGET HER. TOTAL SCORE IS INTER PRETE D FOLLO WS: TOTAL SCORE 0-1: INDIC ATES THE ABSEN CE OF BV. TOTAL SCORE 2: INDET ERMIN ATE FOR BV. ADDIT IONAL CLINI MARLA DATA SHOUL D BE EVALU ATED TO ESTAB NAVYA A DIAGN OSIS. TOTAL SCORE 3-6: INDIC ATES THE PRESE NCE OF BV. THIS TEST WAS DEVEL OPED AND ITS PERFO RMANC E LESLI CTERI STICS DETER MINED BY [facility]. IT HAS NOT BEEN CLEAR ED OR APPRO GIBSON BY THE FOOD AND DRUG ADMIN ISTRA TION. THE FDA HAS DETER MINED THAT SUCH CLEAR ANCE OR APPRO ARELI IS NOT NECES CARSON. Not Available [facility] ([facility]) [address] [facility], [place], [address], 10/13/2016 07:14:20 10/10/20 16 10/13/2016 bacte rial vagin osis + vagin itis panel , vagin al yaakov albicans, ZULMA NEGATI VE negati ve Not Available [facility] ([facility]) [address] [facility], [place], [address], 10/13/2016 07:14:20 10/10/20 16 10/13/2016 bacte rial vagin osis + vagin itis panel , vagin al yaakov glabrata, ZULMA NEGATI VE negati ve THIS TEST WAS DEVEL OPED AND ITS PERFO RMANC E LESLI CTERI STICS DETER MINED BY [facility]. IT HAS NOT BEEN CLEAR ED OR APPRO GIBSON BY THE FOOD AND DRUG ADMIN ISTRA TION. THE FDA HAS DETER MINED THAT SUCH CLEAR ANCE OR APPRO ARELI IS NOT NECES CARSON. Not Available [facility] ([facility]) [address] [facility], [place], [address], 10/13/2016 07:14:20 10/10/20 16 10/12/2016 cultu re, vagin al/re ctal, strep tococ cus group B strep gp B ZULMA NEGATI VE negati ve CENTE RS FOR DISEA SE CONTR OL AND PREVE NTION (CDC) AND AMERI CAN CONGR ESS OF OBSTE TRICI ANS AND GYNEC OLOGI STS (ACOG ) GUIDE LINES FOR PREVE NTION OF PERIN ATAL GROUP B STREP TOCOC MARLA (GBS) DISEA SE SPECI FY CO-CO LLECT ION OF A VAGIN AL AND RECTA L SWAB SPECI MEN TO MAXIM IZE SENSI TIVIT Y OF GBS DETEC TION. PER THE CDC AND ACOG, SWABB ING BOTH THE LOWER VAGIN A AND RECTU M SUBST ANTIA LLY INCRE ASES THE YIELD OF DETEC TION KALYN RED WITH SAMPL ING THE VAGIN A ALONE . PENIC ILLIN G, AMPIC ILLIN , OR CEFAZ LAINA ARE INDIC ATED FOR INTRA PARTU M PROPH YLAXI S OF PERIN ATAL GBS COLON IZATI ON. REFLE X SUSCE PTIBI LITY TESTI NG SHOUL D BE PERFO RMED PRIOR TO USE OF CLIND AMYCI N ONLY ON GBS ISOLA ADRIEL FROM PENIC ILLIN -MARÍA RGIC WOMEN WHO ARE CONSI DERED A HIGH RISK FOR ANAPH YLAXI S. TREAT MENT WITH VANCO MYCIN WITHO UT ADDIT IONAL TESTI NG IS WARRA NTED IF RESIS TANCE TO CLIND AMYCI N IS NOTED . Not Available [facility] ([facility]) [address] [place], [address], 10/13/2016 07:14:20 10/18/20 16 10/19/2016 drug scree n, urine amphetamines , urine NEGATI VE NG/mL cutoff =1000 AMPHE TAMIN E TEST INCLU SERGIO AMPHE TAMIN E AND METHA MPHET AMINE . Not Available [facility] ([facility]) [address] [place], [address], 10/22/2016 07:14:13 10/18/20 16 10/19/2016 drug scree n, urine barbiturates NEGATI VE NG/mL cutoff =200 Not Available [facility] ([facility]) [address] [place], [address], 10/22/2016 07:14:13 10/18/20 16 10/19/2016 drug scree n, urine benzodiazepi galo NEGATI VE NG/mL cutoff =200 Not Available [facility] ([facility]) [address] [place] [address], [address], 10/22/2016 07:14:13 10/18/20 16 10/19/2016 drug scree n, urine cannabinoid SEE FINAL RESULT S NG/mL cutoff =50 Not Available [facility] ([facility]) [address] [place] [address], [address], 10/22/2016 07:14:13 10/18/20 16 10/19/2016 drug scree n, urine cocaine (metab.) NEGATI VE NG/mL cutoff =300 Not Available [facility] ([facility]) [address] [place], [address], 10/22/2016 07:14:13 10/18/20 16 10/19/2016 drug scree n, urine methaqualone NEGATI VE NG/mL cutoff =300 Not Available [facility] ([facility]) [address] [place] [address], [address], 10/22/2016 07:14:13 10/18/20 16 10/19/2016 drug scree n, urine opiates NEGATI VE NG/mL cutoff =2000 OPIAT E TEST INCLU SERGIO CODEI NE AND MORPH INE ONLY. Not Available [facility] ([facility]) [address] [place] [address], [address], 10/22/2016 07:14:13 10/18/20 16 10/19/2016 drug scree n, urine phencyclidin e NEGATI VE NG/mL cutoff =25 Not Available [facility] ([facility]) [address] [place] [address], [address], 10/22/2016 07:14:13 10/18/20 16 10/19/2016 drug scree n, urine methadone screen, urine NEGATI VE NG/mL cutoff =300 Not Available [facility] ([facility]) [address] [place] [address], [address], 10/22/2016 07:14:13 10/18/20 16 10/19/2016 drug scree n, urine propoxyphene , urine NEGATI VE NG/mL cutoff =300 Not Available [facility] ([facility]) [address] [place] [address], [address], 10/22/2016 07:14:13 10/18/20 16 10/21/2016 drug scree n, urine cannabinoid POSITI VE cutoff =50 abnormal Not Available [facility] ([facility]) [address] [place] [address], [address], 10/22/2016 07:14:13 10/18/20 16 10/21/2016 drug scree n, urine carboxy THC GC/MS conf 171 NG/mL cutoff =15 Not Available [facility] ([facility]) [address] [place] [address], [address], 10/22/2016 07:14:13 10/18/20 16 10/19/2016 hsv (1+2) igg, serum hsv 1 IgG, type spec 4.29 index 0.00-0 .90 above high normal NEGAT JUAN C <0.91 EQUIV OCAL 0.91 - 1.09 POSIT JUAN C >1.09 NOTE: NEGAT JUAN C INDIC ATES NO ANTIB ODIES DETEC RAMONA TO HSV-1 . EQUIV OCAL MAY SUGGE ST EARLY INFEC TION. IF CLINI BARBARA APPRO PRIAT E, RETES T AT LATER DATE. POSIT JUAN C INDIC ATES ANTIB ODIES DETEC RAMONA TO HSV-1 . Not Available [facility] ([facility]) [address] [facility], [place], [address], 10/22/2016 07:14:13 10/18/20 16 10/19/2016 hsv (1+2) igg, serum hsv 2 IgG, type spec <0.91 index 0.00-0 .90 NEGAT JUAN C <0.91 EQUIV OCAL 0.91 - 1.09 POSIT JUAN C >1.09 NOTE: NEGAT JUAN C INDIC ATES NO ANTIB ODIES DETEC RAMONA TO HSV-2 . EQUIV OCAL MAY SUGGE ST EARLY INFEC TION. IF CLINI BARBARA APPRO PRIAT E, RETES T AT LATER DATE. POSIT JUAN C INDIC ATES ANTIB ODIES DETEC RAMONA TO HSV-2 . Not Available [facility] ([facility]) [address] [facility], [place], [address], 10/22/2016 07:14:13 10/18/20 16 10/19/2016 varic brennen- zoste r igg Ab scree n, serum varicella zoster IgG 557 index immune >165 NEGAT JUAN C <135 EQUIV OCAL 135 - 165 POSIT JUAN C >165 A POSIT JUAN C RESUL T GENER ALLY INDIC ATES EXPOS URE TO THE PATHO GEN OR ADMIN ISTRA TION OF SPECI FIC IMMUN OGLOB ULINS , BUT IT IS NOT INDIC ATION OF ACTIV E INFEC TION OR STAGE OF DISEA SE. Not Available [facility] ([facility]) [address] [facility], [place], [address], 10/22/2016 07:14:14 11/01/20 16 11/02/2016 CBC w/ auto diff WBC 8.3 x10e3 /uL 3.4-10 .8 Not Available [facility] ([facility]) [address] [facility], [place], [address], 11/02/2016 07:14:39 11/01/20 16 11/02/2016 CBC w/ auto diff RBC 4.32 x10e6 /uL 3.77-5 .28 Not Available [facility] ([facility]) [address] [facility] [place], [address], 11/02/2016 07:14:39 11/01/20 16 11/02/2016 CBC w/ auto diff hemoglobin 11.1 g/dL 11.1-1 5.9 Not Available [facility] ([facility]) [address] [facility] [place], [address], 11/02/2016 07:14:39 11/01/20 16 11/02/2016 CBC w/ auto diff hematocrit 35.2 % 34.0-4 6.6 Not Available [facility] ([facility]) [address] [place], [address], 11/02/2016 07:14:39 11/01/20 16 11/02/2016 CBC w/ auto diff MCV 82 fL 79-97 Not Available [facility] ([facility]) [address] [facility], [place], [address], 11/02/2016 07:14:39 11/01/20 16 11/02/2016 CBC w/ auto diff MCH 25.7 pg 26.6-3 3.0 below low normal Not Available [facility] ([facility]) [address] [place], [address], 11/02/2016 07:14:39 11/01/20 16 11/02/2016 CBC w/ auto diff MCHC 31.5 g/dL 31.5-3 5.7 Not Available [facility] ([facility]) [address] [place], [address], 11/02/2016 07:14:39 11/01/20 16 11/02/2016 CBC w/ auto diff RDW 15.3 % 12.3-1 5.4 Not Available [facility] ([facility]) [address] [place], [address], 11/02/2016 07:14:39 11/01/20 16 11/02/2016 CBC w/ auto diff platelets 245 x10e3 /uL 150-37 9 Not Available [facility] ([facility]) Count includes the [facility] [place], [address], 11/02/2016 07:14:39 11/01/20 16 11/02/2016 CBC w/ auto diff neutrophils 78 % Not Available [facility] ([facility]) [address] [place], [address], 11/02/2016 07:14:39 11/01/20 16 11/02/2016 CBC w/ auto diff lymphs 14 % Not Available [facility] ([facility]) [address] [place] [address], [address], 11/02/2016 07:14:39 11/01/20 16 11/02/2016 CBC w/ auto diff monocytes 7 % Not Available [facility] ([facility]) [address] [place] [address], [address], 11/02/2016 07:14:39 11/01/20 16 11/02/2016 CBC w/ auto diff eos 1 % Not Available [facility] ([facility]) [address] [place] [address], [address], 11/02/2016 07:14:39 11/01/20 16 11/02/2016 CBC w/ auto diff basos 0 % Not Available [facility] ([facility]) [address] [place] [address], [address], 11/02/2016 07:14:39 11/01/20 16 11/02/2016 CBC w/ auto diff immature cells DIE HARDENER Not Available [facility] ([facility]) [address] [place] [address], [address], 11/02/2016 07:14:39 11/01/20 16 11/02/2016 CBC w/ auto diff neutrophils (absolute) 6.5 x10e3 /uL 1.4-7. 0 Not Available [facility] ([facility]) [address] [facility], [place], [address], 11/02/2016 07:14:39 11/01/20 16 11/02/2016 CBC w/ auto diff lymphs (absolute) 1.2 x10e3 /uL 0.7-3. 1 Not Available [facility] ([facility]) [address] [place], [address], 11/02/2016 07:14:39 11/01/20 16 11/02/2016 CBC w/ auto diff monocytes(ab solute) 0.6 x10e3 /uL 0.1-0. 9 Not Available [facility] ([facility]) [address] [place], [address], 11/02/2016 07:14:39 11/01/20 16 11/02/2016 CBC w/ auto diff eos (absolute) 0.1 x10e3 /uL 0.0-0. 4 Not Available [facility] ([facility]) [address] [place] [address], [place], [address], 11/02/2016 07:14:39 11/01/20 16 11/02/2016 CBC w/ auto diff baso (absolute) 0.0 x10e3 /uL 0.0-0. 2 Not Available [facility] ([facility]) [address] [place], [address], 11/02/2016 07:14:39 11/01/20 16 11/02/2016 CBC w/ auto diff immature granulocytes 0 % Not Available [facility] ([facility]) [address] [place], [address], 11/02/2016 07:14:39 11/01/20 16 11/02/2016 CBC w/ auto diff immature grans (abs) 0.0 x10e3 /uL 0.0-0. 1 Not Available [facility] ([facility]) [address] [facility] [place], [address], 11/02/2016 07:14:39 11/01/20 16 11/02/2016 CBC w/ auto diff NRBC DIE HARDENER Not Available [facility] ([facility]) [address] [facility] [place], [address], 11/02/2016 07:14:39 11/01/20 16 11/02/2016 CBC w/ auto diff hematology comments: DIE HARDENER Not Available [facility] ([facility]) [address] [facility] [place], [address], 11/02/2016 07:14:39 11/01/20 16 11/02/2016 CMP, serum or plasm a glucose, serum 114 mg/dL 65-99 above high normal Not Available [facility] ([facility]) [address] [facility] [place], [address], 11/02/2016 07:14:39 11/01/20 16 11/02/2016 CMP, serum or plasm a BUN 4 mg/dL 6-20 below low normal Not Available [facility] ([facility]) [address] [facility] [place], [address], 11/02/2016 07:14:39 11/01/20 16 11/02/2016 CMP, serum or plasm a creatinine, serum 0.42 mg/dL 0.57-1 .00 below low normal Not Available [facility] ([facility]) [address] [facility] [place], [address], 11/02/2016 07:14:39 11/01/20 16 11/02/2016 CMP, serum or plasm a eGFR if nonafricn AM 142 mL/mi n/1.7 3 >59 Not Available [facility] ([facility]) [address] [facility] [place], [address], 11/02/2016 07:14:39 11/01/20 16 11/02/2016 CMP, serum or plasm a eGFR if africn AM 164 mL/mi n/1.7 3 >59 Not Available [facility] ([facility]) [address] [facility], [place], [address], 11/02/2016 07:14:39 11/01/20 16 11/02/2016 CMP, serum or plasm a BUN/creatini ne ratio 10 8-20 Not Available [facility] ([facility]) [address] [facility], [place], [address], 11/02/2016 07:14:39 11/01/20 16 11/02/2016 CMP, serum or plasm a sodium, serum 139 mmol/ L 134-14 4 PLE ASE NOTE REFER ENCE INTER ARELI FOY E Not Available [facility] ([facility]) [address] [facility], [place], [address], 11/02/2016 07:14:39 11/01/20 16 11/02/2016 CMP, serum or plasm a potassium, serum 4.8 mmol/ L 3.5-5. 2 Not Available [facility] ([facility]) [address] [facility], [place], [address], 11/02/2016 07:14:39 11/01/20 16 11/02/2016 CMP, serum or plasm a chloride, serum 100 mmol/ L 96-106 PLE ASE NOTE REFER ENCE INTER ARELI FOY E Not Available [facility] ([facility]) [address] [facility], [place], [address], 11/02/2016 07:14:39 11/01/20 16 11/02/2016 CMP, serum or plasm a carbon dioxide, total 22 mmol/ L 18-29 Not Available [facility] ([facility]) [address] [facility], [place], [address], 11/02/2016 07:14:39 11/01/20 16 11/02/2016 CMP, serum or plasm a calcium, serum 8.9 mg/dL 8.7-10 .2 Not Available [facility] ([facility]) [address] [facility] [place], [address], 11/02/2016 07:14:39 11/01/20 16 11/02/2016 CMP, serum or plasm a protein, total, serum 6.1 g/dL 6.0-8. 5 Not Available [facility] ([facility]) [address] [facility] [place], [address], 11/02/2016 07:14:39 11/01/20 16 11/02/2016 CMP, serum or plasm a albumin, serum 3.4 g/dL 3.5-5. 5 below low normal Not Available [facility] ([facility]) [address] [facility] [place], [address], 11/02/2016 07:14:39 11/01/20 16 11/02/2016 CMP, serum or plasm a globulin, total 2.7 g/dL 1.5-4. 5 Not Available [facility] ([facility]) [address] [facility] [place], [address], 11/02/2016 07:14:39 11/01/20 16 11/02/2016 CMP, serum or plasm a A/G ratio 1.3 1.1-2. 5 Not Available [facility] ([facility]) [address] [facility] [place], [address], 11/02/2016 07:14:39 11/01/20 16 11/02/2016 CMP, serum or plasm a bilirubin, total 0.2 mg/dL 0.0-1. 2 Not Available [facility] ([facility]) [address] [facility] [place], [address], 11/02/2016 07:14:39 11/01/20 16 11/02/2016 CMP, serum or plasm a alkaline phosphatase, S 177 IU/L 39-117 above high normal Not Available [facility] ([facility]) [address] [place], [address], 11/02/2016 07:14:39 11/01/20 16 11/02/2016 CMP, serum or plasm a AST (SGOT) 8 IU/L 0-40 Not Available [facility] ([facility]) [address] [place], [address], 11/02/2016 07:14:39 11/01/20 16 11/02/2016 CMP, serum or plasm a ALT (SGPT) 6 IU/L 0-32 Not Available [facility] ([facility]) [address] [place], [address], 11/02/2016 07:14:39 11/01/20 16 11/02/2016 uric acid, serum or plasm a uric acid, serum 4.5 mg/dL 2.5-7. 1 THERA KIMBERLYI C MADAY T FOR GOUT PATIE NTS: <6.0 Not Available [facility] ([facility]) [address] [facility], [place], [address], 11/02/2016 07:14:40 11/01/20 16 11/02/2016 ldh, serum or plasm a LDH 126 IU/L 119-22 6 Not Available [facility] ([facility]) [address] [place], [address], 11/02/2016 07:14:40 01/12/20 17 01/13/2017 bacte rial vagin osis + vagin itis panel , vagin al trich vag by ZULMA NEGATI VE negati ve Not Available [facility] ([facility]) [address] [place], [address], 01/16/2017 07:06:57 01/12/20 17 01/13/2017 bacte rial vagin osis + vagin itis panel , vagin al chlamydia trachomatis, ZULMA NEGATI VE negati ve Not Available [facility] ([facility]) [address] [place], [address], 01/16/2017 07:06:57 01/12/20 17 01/13/2017 bacte rial vagin osis + vagin itis panel , vagin al neisseria gonorrhoeae, ZULMA NEGATI VE negati ve Not Available [facility] ([facility]) [address] [place], [address], 01/16/2017 07:06:57 01/12/20 17 01/14/2017 bacte rial vagin osis + vagin itis panel , vagin al yaakov albicans, ZULMA NEGATI VE negati ve Not Available [facility] ([facility]) [address] [place], [address], 01/16/2017 07:06:57 01/12/20 17 01/14/2017 bacte rial vagin osis + vagin itis panel , vagin al yaakov glabrata, ZULMA NEGATI VE negati ve THIS TEST WAS DEVEL MATEOED AND ITS PERFO RMANC E LESLI CTERI STICS DETER MINED BY [facility]. IT HAS NOT BEEN CLEAR ED OR APPRO GIBSON BY THE FOOD AND DRUG ADMIN ISTRA TION. THE FDA HAS DETER MINED THAT SUCH CLEAR ANCE OR APPRO ARELI IS NOT NECES CARSON. Not Available [facility] ([facility]) [address] [place], [address], 01/16/2017 07:06:57 01/12/20 17 01/15/2017 bacte rial vagin osis + vagin itis panel , vagin al atopobium vaginae LOW - 0 score Not Available [facility] ([facility]) [address] [place], [address], 01/16/2017 07:06:57 01/12/20 17 01/15/2017 bacte rial vagin osis + vagin itis panel , vagin al bvab 2 LOW - 0 score Not Available [facility] ([facility]) [address] [place], [address], 01/16/2017 07:06:57 01/12/20 17 01/15/2017 bacte rial vagin osis + vagin itis panel , vagin al megasphaera 1 LOW - 0 score CALCU LATE TOTAL SCORE BY SKY Motta THE 3 INDIV IDUAL BACTE RIAL VAGIN OSIS (BV) MARKE R SCORE S TOGET HER. TOTAL SCORE IS INTER PRETE D FOLLO WS: TOTAL SCORE 0-1: INDIC ATES THE ABSEN CE OF BV. TOTAL SCORE 2: INDET ERMIN ATE FOR BV. ADDIT IONAL CLINI MARLA DATA SHOUL D BE EVALU ATED TO ESTAB NAVYA A DIAGN OSIS. TOTAL SCORE 3-6: INDIC ATES THE PRESE NCE OF BV. THIS TEST WAS DEVEL OPED AND ITS PERFO RMANC E LESLI CTERI STICS DETER MINED BY [facility]. IT HAS NOT BEEN CLEAR ED OR APPRO GIBSON BY THE FOOD AND DRUG ADMIN ISTRA TION. THE FDA HAS DETER MINED THAT SUCH CLEAR ANCE OR APPRO ARELI IS NOT NECES CARSON. Not Available [facility] ([facility]) [address] [place], [address], 01/16/2017 07:06:57 01/14/20 17 01/14/2017 CBC w/ auto diff WBC 7.9 x10e3 /uL 3.4-10 .8 Not Available [facility] ([facility]) [address] [place], [address], 01/14/2017 07:13:04 01/14/20 17 01/14/2017 CBC w/ auto diff RBC 4.33 x10e6 /uL 3.77-5 .28 Not Available [facility] ([facility]) [address] [place], [address], 01/14/2017 07:13:04 01/14/20 17 01/14/2017 CBC w/ auto diff hemoglobin 10.6 g/dL 11.1-1 5.9 below low normal Not Available [facility] ([facility]) [address] [place], [address], 01/14/2017 07:13:04 01/14/20 17 01/14/2017 CBC w/ auto diff hematocrit 33.5 % 34.0-4 6.6 below low normal Not Available [facility] ([facility]) [address] [place], [address], 01/14/2017 07:13:04 01/14/20 17 01/14/2017 CBC w/ auto diff MCV 77 fL 79-97 below low normal Not Available [facility] ([facility]) [address] [place], [address], 01/14/2017 07:13:04 01/14/20 17 01/14/2017 CBC w/ auto diff MCH 24.5 pg 26.6-3 3.0 below low normal Not Available [facility] ([facility]) [address] [place], [address], 01/14/2017 07:13:04 01/14/20 17 01/14/2017 CBC w/ auto diff MCHC 31.6 g/dL 31.5-3 5.7 Not Available [facility] ([facility]) [address] [place], [address], 01/14/2017 07:13:04 01/14/20 17 01/14/2017 CBC w/ auto diff RDW 15.9 % 12.3-1 5.4 above high normal Not Available [facility] ([facility]) [address] [place], [address], 01/14/2017 07:13:04 01/14/20 17 01/14/2017 CBC w/ auto diff platelets 331 x10e3 /uL 150-37 9 Not Available [facility] ([facility]) [address] [place], [address], 01/14/2017 07:13:04 01/14/20 17 01/14/2017 CBC w/ auto diff neutrophils 69 % Not Available [facility] ([facility]) [address] [facility] [place], [address], 01/14/2017 07:13:04 01/14/20 17 01/14/2017 CBC w/ auto diff lymphs 23 % Not Available [facility] ([facility]) [address] [place], [address], 01/14/2017 07:13:04 01/14/20 17 01/14/2017 CBC w/ auto diff monocytes 7 % Not Available [facility] ([facility]) [address] [place], [address], 01/14/2017 07:13:04 01/14/2001/14/2017 CBC w/ auto diff eos 1 % Not Available [facility] ([facility]) [address] [place], [address], 01/14/2017 07:13:04 01/14/20 17 01/14/2017 CBC w/ auto diff basos 0 % Not Available [facility] ([facility]) [address] [place], [address], 01/14/2017 07:13:04 01/14/20 17 01/14/2017 CBC w/ auto diff immature cells DIE HARDENER Not Available [facility] ([facility]) [address] [place], [address], 01/14/2017 07:13:04 01/14/20 17 01/14/2017 CBC w/ auto diff neutrophils (absolute) 5.5 x10e3 /uL 1.4-7. 0 Not Available [facility] ([facility]) [address] [place], [address], 01/14/2017 07:13:04 01/14/20 17 01/14/2017 CBC w/ auto diff lymphs (absolute) 1.8 x10e3 /uL 0.7-3. 1 Not Available [facility] ([facility]) [address] [place], [address], 01/14/2017 07:13:04 01/14/20 17 01/14/2017 CBC w/ auto diff monocytes(ab solute) 0.5 x10e3 /uL 0.1-0. 9 Not Available [facility] ([facility]) [address] [facility], [place], [address], 01/14/2017 07:13:04 01/14/20 17 01/14/2017 CBC w/ auto diff eos (absolute) 0.1 x10e3 /uL 0.0-0. 4 Not Available [facility] ([facility]) [address] [place], [address], 01/14/2017 07:13:04 01/14/20 17 01/14/2017 CBC w/ auto diff baso (absolute) 0.0 x10e3 /uL 0.0-0. 2 Not Available [facility] ([facility]) [address] [place], [address], 01/14/2017 07:13:04 01/14/20 17 01/14/2017 CBC w/ auto diff immature granulocytes 0 % Not Available [facility] ([facility]) [address] [place], [address], 01/14/2017 07:13:04 01/14/20 17 01/14/2017 CBC w/ auto diff immature grans (abs) 0.0 x10e3 /uL 0.0-0. 1 Not Available [facility] ([facility]) [address] [place], [address], 01/14/2017 07:13:04 01/14/20 17 01/14/2017 CBC w/ auto diff NRBC DIE HARDENER Not Available [facility] ([facility]) [address] [place], [address], 01/14/2017 07:13:04 01/14/20 17 01/14/2017 CBC w/ auto diff hematology comments: DIE HARDENER Not Available [facility] ([facility]) [address] [facility], [place], [address], 01/14/2017 07:13:04 09/05/20 17 09/07/2017 bacte rial vagin osis + vagin itis panel , vagin al trich vag by ZULMA Negati ve negati ve Not Available [facility] ([facility]) [address] [facility], [place], [address], 09/08/2017 07:14:52 09/05/2009/07/2017 bacte rial vagin osis + vagin itis panel , vagin al chlamydia trachomatis, ZULMA Negati ve negati ve Not Available [facility] ([facility]) [address] [facility], [place], [address], 09/08/2017 07:14:52 09/05/20 17 09/07/2017 bacte rial vagin osis + vagin itis panel , vagin al neisseria gonorrhoeae, ZULMA Negati ve negati ve Not Available [facility] ([facility]) [address] [facility], [place], [address], 09/08/2017 07:14:52 09/05/2009/08/2017 bacte rial vagin osis + vagin itis panel , vagin al atopobium vaginae Low - 0 score Not Available [facility] ([facility]) [address] [facility], [place], [address], 09/08/2017 07:14:52 09/05/2009/08/2017 bacte rial vagin osis + vagin itis panel , vagin al bvab 2 Low - 0 score Not Available [facility] ([facility]) [address] [place], [address], 09/08/2017 07:14:52 09/05/20 17 09/08/2017 bacte rial vagin osis + vagin itis panel , vagin al megasphaera 1 Low - 0 score Calcu late total score by addin g the 3 indiv idual bacte rial vagin osis (BV) marke r score s toget her. Total score is inter prete d as follo ws: Total score 0-1: Indic ates the absen ce of BV. Total score 2: Indet ermin ate for BV. Addit ional clini marla data shoul d be evalu ated to estab navya a diagn osis. Total score 3-6: Indic ates the prese nce of BV. This test was devel oped and its perfo rmanc e lesli cteri stics deter mined by [facility]. It has not been clear ed or appro gibson by the Food and Drug Admin istra tion. The FDA has deter mined that such clear ance or appro areli is not neces carson. Not Available [facility] ([facility]) [address] [place], [address], 09/08/2017 07:14:52 09/05/2009/08/2017 bacte rial vagin osis + vagin itis panel , vagin al yaakov albicans, ZULMA Negati ve negati ve Not Available [facility] ([facility]) [address] [place], [address], 09/08/2017 07:14:52 09/05/2009/08/2017 bacte rial vagin osis + vagin itis panel , vagin al yaakov glabrata, ZULMA Negati ve negati ve This test was devel oped and its perfo rmanc e lesli cteri stics deter mined by [facility]. It has not been clear ed or appro gibson by the Food and Drug Admin istra tion. The FDA has deter mined that such clear ance or appro areli is not neces carson. Not Available [facility] ([facility]) [address] [facility], [place], [address], 09/08/2017 07:14:52 09/05/20 17 09/07/2017 pap, IG + refle x HR HPV (16+1 8) diagnosis: Commen t NEGAT JUAN C FOR INTRA EPITH ELIAL LESIO N AND MALIG ALEXA . Not Available [facility] ([facility]) [address] [facility], [place], [address], 09/09/2017 07:12:27 09/05/20 17 09/07/2017 pap, IG + refle x HR HPV (16+1 8) specimen adequacy: Kisha telles Satis facto ry for evalu ation . Endoc ervic al and/o r squam ous metap lasti c cells (endo cervi marla compo nent) are prese nt. Not Available [facility] ([facility]) [address] [facility], [place], [address], 09/09/2017 07:12:27 09/05/20 17 09/07/2017 pap, IG + refle x HR HPV (16+1 8) clinician provided ICD10: Kisha telles Z01.4 19 Not Available [facility] ([facility]) [address] [place], [address], 09/09/2017 07:12:27 09/05/20 17 09/07/2017 pap, IG + refle x HR HPV (16+1 8) performed by: Torres Gates (ASCP ) Not Available [facility] ([facility]) [address] [place], [address], 09/09/2017 07:12:27 09/05/20 17 09/07/2017 pap, IG + refle x HR HPV (16+1 8) . . Not Available [facility] ([facility]) [address] [place], [address], 09/09/2017 07:12:27 09/05/20 17 09/07/2017 pap, IG + refle x HR HPV (16+1 8) note: Kisha telles The Pap smear is a scree stefani test desig ashley to aid in the detec tion of dusty ligna nt and tio quick condi tions of the uteri ne cervi x. It is not a diagn ostic proce dure and shoul d not be used as the sole means of detec ting cervi marla cance r. Both false -posi tive and false -nega tive repor ts do occur . Not Available [facility] ([facility]) [address] [place], [address], 09/09/2017 07:12:27 09/05/20 17 09/07/2017 pap, IG + refle x HR HPV (16+1 8) test methodology: Commen t This liqui d based ThinP rep(R ) pap test was scree ashley with the use of an image guide nader herzog. Not Available [facility] ([facility]) [address] [facility], [place], [address], 09/09/2017 07:12:27 09/05/20 17 09/08/2017 pap, IG + refle x HR HPV (16+1 8) HPV, high-risk Negati ve negati ve This high- risk HPV test detec ts thirt een high- risk types (16/1 8/31/ 33/35 /39/4 5/51/ 52/56 /58/5 ) witho ut diffe renti ation . Not Available [facility] ([facility]) [address] [place], [address], 09/09/2017 07:12:27 10/21/20 16 10/21/2016 US, obste tric, bioph ysica l profi le No observ ation record ed. [address] [place], [address], 10/24/2016 10:34:08 10/21/20 16 10/21/2016 US, obste tric, bioph ysica l profi le No observ ation record ed. [address] [place], [address], 10/24/2016 10:34:09 10/24/20 16 10/21/2016 US, obste tric, bioph ysica l profi le No observ ation record ed. [address] [place], [address], 10/25/2016 09:09:33 10/25/20 16 10/24/2016 US, obste tric, bioph ysica l profi le No observ ation record ed. [address] [place], [address], 10/26/2016 10:03:21 10/25/20 16 10/24/2016 US, obste tric, bioph ysica l profi le No observ ation record ed. [address] [place], [address], 10/26/2016 02:34:28 10/28/20 16 10/27/2016 US, obste tric, bioph ysica l profi le No observ ation record ed. [address] [place], [address], 10/29/2016 18:44:02 10/31/20 16 10/27/2016 US, obste tric, follo w-up No observ ation record ed. [address] [place], [address], 10/31/2016 18:48:37 11/01/20 16 10/31/2016 US, obste tric, bioph ysica l profi le No observ ation record ed. [address] [place], [address], 11/01/2016 16:54:00 11/03/20 16 11/03/2016 US, obste tric, bioph ysica l profi le + non-s tress test No observ ation record ed. [address] [place], [address], 11/04/2016 19:56:34 11/08/20 16 11/08/2016 US, obste tric, follo w-up No observ ation record ed. [email or web address] [address] [place], [address], 11/16/2016 09:17:14 11/08/20 16 11/08/2016 US, obste tric, bioph ysica l profi le + non-s tress test No observ ation record ed. [address] [place], [address], 11/09/2016 09:04:59 11/10/20 16 11/10/2016 US, obste tric, bioph ysica l profi le + non-s tress test No observ ation record ed. [address] [place], [address], 11/11/2016 08:26:27 11/10/20 16 11/10/2016 US, obste tric, bioph ysica l profi le No observ ation record ed. [address] [place], [address], 11/11/2016 08:26:28 11/15/19 17 11/10/2016 US, obste tric, bioph ysica l profi le + non-s tress test No observ ation record ed. [address] [place], [address], 11/16/2016 06:25:51 11/16/19 17 11/15/2016 US, obste tric, bioph ysica l profi le + non-s tress test No observ ation record ed. [address] [place], [address], 11/18/2016 13:57:20 11/17/19 17 11/17/2016 US, obste tric, bioph ysica l profi le + non-s tress test No observ ation record ed. [address] [place], [address], 11/18/2016 13:57:21 Result Notes None recorded. Problems Name Problem SNOMED Code Status Onset Date Resolution Date Notes Provider Name and Address Organization Details Recorded Time 82219423 Completed 201511/30/2016 Evelyn Weber MA null, [place] - [facility] 7 10:22:03 Cannabis abuse [id number] Active 2015 Sera Lynn MD Attn: Steven motta,[address] [facility], [place], [id number], [facility] - [facility] 6 09:43:40 Recommend ation refused Completed 2015 PATIENT REFUSE TO GET 24 HOUR URINE DONE , SHE SSID SHE HAS DONE THEM BEFORE AND DOES NOT WANT TO DO ANYMORE, I TOLD PT HOW IMPORTSNT IT IS TO COMPLETE HER PIH LABS, SO THAT SHE CAN BE EVALUATED PROPERLY. PT STILL REFUSED Merline Sanchezkelli [place], [place] - [facility] 7 15:20:51 Recommend ation refused Active 2015 PATIENT REFUSE TO GET 24 HOUR URINE DONE , SHE SSID SHE HAS DONE THEM BEFORE AND DOES NOT WANT TO DO ANYMORE, I TOLD PT HOW IMPORTSNT IT IS TO COMPLETE HER PIH LABS, SO THAT SHE CAN BE EVALUATED PROPERLY. PT STILL REFUSED Merline Sanchezkelli canales renetta, [place] - [place] 7 15:20:51 Problem Notes None recorded. Procedures Surgical History Date Name Laterality Status Provider Name and Address Organization Details Recorded Time 7 Date of Last Pap Smear completed Radha Vance MA [facility] 09/05/2017 15:54:43 7 Caesarean Section completed Radha Vance MA [facility] 09/05/2017 16:01:17 Imaging Results Imaging Date Name Status LastModified by Goldy wheeler Details LastModified Time 10/21/2016 US, obstetric, biophysical profile completed [place] [address] [place], [address], 10/24/2016 10:34:08 10/21/2016 US, obstetric, biophysical profile completed [address] [place], [address], 10/24/2016 10:34:09 10/21/2016 US, obstetric, biophysical profile completed [facility] ([facility]) [address] [place] [address] [place], [address], 10/25/2016 09:09:33 10/24/2016 US, obstetric, biophysical profile completed [address] [place], [address], 10/26/2016 10:03:21 10/24/2016 US, obstetric, biophysical profile completed [facility] ([facility]) [address] [place] [address] [place], [address], 10/26/2016 02:34:28 10/27/2016 US, obstetric, biophysical profile completed [address] [place], [address], 10/29/2016 18:44:02 10/27/2016 US, obstetric, follow-up completed [facility] ([facility]) [address] [place] [address] [place], [address], 10/31/2016 18:48:37 10/31/2016 US, obstetric, biophysical profile completed [address] [place], [address], 11/01/2016 16:54:00 11/03/2016 US, obstetric, biophysical profile + non-stress test completed [address] [place], [address], 11/04/2016 19:56:34 11/08/2016 US, obstetric, follow-up completed [address] [place], [address], 11/16/2016 09:17:14 11/08/2016 US, obstetric, biophysical profile + non-stress test completed [address] [place], [address], 11/09/2016 09:04:59 11/10/2016 US, obstetric, biophysical profile + non-stress test completed [address] [place], [address], 11/11/2016 08:26:27 11/10/2016 US, obstetric, biophysical profile completed [address] [place], [address], 11/11/2016 08:26:28 11/10/2016 US, obstetric, biophysical profile + non-stress test completed [facility] ([place]) [address] [place] [address] [place], [address], 11/16/2016 06:25:51 11/15/2016 US, obstetric, biophysical profile + non-stress test completed [address] [place], [address], 11/18/2016 13:57:20 11/17/2016 US, obstetric, biophysical profile + non-stress test completed [address] [place], [address], 11/18/2016 13:57:21 Procedure Notes None recorded. Medical Equipment None Reported. Allergies No known drug allergies Medications Name Sig Start Date Stop Date Status Note LastModified by Organization Details LastModified Time buspirone 5 mg tablet active Not Available Not Available No t Available bupropion HCl SR 150 mg tablet,12 hr sustained-r elease active Not Available Not Available Not Available ibuprofen 800 mg tablet 09/05 completed Not Available Not Available Not Available hydrocodone 5 mg-acetamin ophen 325 mg tablet Take 2 tablets every 4-6 hours by oral route as needed. active Not Available Not Available No t Available phenazopyri dine 200 mg tablet 09/05 completed Not Available Not Available Not Available bupropion HCl SR 100 mg tablet,12 hr sustained-r elease active Not Available Not Available Not Available oxycodone-a cetaminophe n 5 mg-325 mg tablet active Not Available Not Available No t Available DOK 100 mg capsule Take 1 capsule twice a day by oral route as directed. 09/05 completed Not Available Not Available Not Available ferrous sulfate 325 mg (65 mg iron) tablet Take 1 tablet 3 times a day by oral route as directed. 09/05 completed Not Available Not Available Not Available ranitidine 150 mg tablet 09/05 completed Not Available Not Available Not Available buspirone 10 mg tablet active Not Available Not Available Not Available ondansetron 4 mg disintegrat ing tablet active Not Available Not Available N ot Available metoclopram jerri 10 mg tablet 09/05 completed Not Available Not Available Not Available amoxicillin 875 mg-potassiu m clavulanate 125 mg tablet 09/05 completed Not Available Not Available Not Available hydroxyzine pamoate 25 mg capsule 09/05 completed Not Available Not Available Not Available nitrofurant oin monohydrate /macrocryst als 100 mg capsule 09/05 completed Not Available Not Available Not Available Pristiq 50 mg tablet,exte nded release 09/05 completed Not Available Not Available Not Available vits 96-ferrous fumarate 27 mg iron-folic acid 800 mcg tablet active Not Available Not Available N ot Available Estarylla 0.25 mg-35 mcg tablet TAKE 1 TABLET BY MOUTH EVERY DAY DIRECTED active Not Available Not Available No t Available Vitals Date Recorded Body height Body mass index (BMI) Systolic blood pressure Diastolic blood pressure Provider Name and Address Organization Details Last Updated DateTime 11/08/2016 162.56 cm 55.8 kg/m2 152 mm[Hg] 92 mm[Hg] Evelyn Weber MA [facility] 11/08/2016 16:39:49 Date Recorded Body weight Provider Name an d Address Organization Details Last Updated DateTime 11/08/2016 206697.57832 g Sera Lynn MD Attn: Accounting,[address] [facility], [place], [address], [facility] 11/08/2016 16:51:31 Date Recorded Body height Body mass index (BMI) Systolic blood pressure Diastolic blood pressure Provider Name and Address Organization Details Last Updated DateTime 11/30/2016 162.56 cm 53.4 kg/m2 128 mm[Hg] 86 mm[Hg] Vilma Colbert MA [facility] 11/30/2016 09:40:52 Date Recorded Body weight Provider Name an d Address Organization Details Last Updated DateTime 11/30/2016 202324.990277 g Evelyn Weber MA [facility] 11/30/2016 10:22:00 Date Recorded Body height Body weight Body mass index (BMI) Systolic blood pressure Diastolic blood pressure Provider Name and Address Organization Details Last Updated DateTime 01/11/2017 162.56 cm 239336.2 5 g 50.1 kg/m2 132 mm[Hg] 76 mm[Hg] Marissa Lin RN [facility] 7 15:09:36 Date Recorded Body height Body weight Body mass index (BMI) Systolic blood pressure Diastolic blood pressure Provider Name and Address Organization Details Last Updated DateTime 01/13/2017 162.56 cm 302993.9 7 g 50.1 kg/m2 138 mm[Hg] 76 mm[Hg] Marissa Lin RN [facility] 7 15:52:40 Date Recorded Body height Body mass index (BMI) Body weight Systolic blood pressure Diastolic blood pressure Provider Name and Address Organization Details Last Updated DateTime 09/05/2017 162.56 cm 48.6 kg/m2 674151.6 4 g 126 mm[Hg] 78 mm[Hg] Radha Vance MA [facility] 7 15:59:44 Social History Question Answer Notes LastModified by Organizat ion Details LastModified Time Tobacco Smoking Status Current Every Day Smoker Vilma Colbert MA [facility], [facility] 11/01/2016 16:05:28 Do You Have An Advance Directive? No Information not available 11/01/2016 What Is Your Level Of Alcohol Consumption? None Information not available 11/01/2016 If You Are , What Was Your Level Of Alcohol Consumption Prior To ? None Information not available 11/01/2016 Is Anesthesia Consult Planned? No Information not available 11/01/2016 Plan No Information no t available 11/01/2016 Are You Blind Or Do You Have Difficulty Seeing? No Information not available 11/01/2016 Is Blood Transfusion Acceptable In An Emergency? Yes Information not available 11/01/2016 What Is Your Level Of Caffeine Consumption? Moderate Information not available 11/01/2016 Live With Cats/exposure To Cat Litter Yes Boyfriend Takes Care Of The Litter Information not available 11/01/2016 How Much Tobacco Do You Chew? None Information not available 11/01/2016 Are You Currently Employed? No Information not available 11/01/2016 Are You Deaf Or Do You Have Serious Difficulty Hearing? No Information not available 11/01/2016 What Type Of Diet Are You Following? REGULAR Information not available 11/01/2016 Which Illicit Or Recreational Drugs Have You Used? None Information not available 11/01/2016 Education 4 Year College Information not available 11/01/2016 What Is Your Occupation? Unemployed Information not available 11/01/2016 Have There Been Any Changes To Your Family Or Social Situation? No Information not available 11/01/2016 Frequent Air Travel No Information not available 11/01/2016 Illicit Drugs Pre- None Information not available 11/01/2016 Live Alone Or With Others? With Others Information not available 11/01/2016 Marital Status Domestic Partner Information not available 11/01/2016 What Was The Date Of Your Most Recent Tobacco Screening? 09/05/2017 Information not available 06/06/2019 How Many Children Do You Have? 0 Information not available 11/01/2016 Seat Belts Used Routinely Yes Information not available 11/01/2016 Are You Sexually Active? Yes Information not available 11/01/2016 Do You Have Smoke And Carbon Monoxide Detectors In Your Home? Yes Information not available 11/01/2016 Are You Passively Exposed To Smoke? Yes Information not available 11/01/2016 How Much Tobacco Do You Smoke? 0.25 PPD Information not available 11/01/2016 Smoking Pre- No Information not available 11/01/2016 General Stress Level Medium Information not available 11/01/2016 Do You Use Sunscreen Routinely? Yes Information not available 11/01/2016 How Many Years Have You Smoked Tobacco? 5 knealma Information not available 09/05/2017 Sex: Unknown Functional Status Question Answer Note LastModified by Organization D etails LastModified Time Do you have difficulty walking or climbing stairs? No Information not available 11/01/2016 Do you have difficulty doing errands alone? No Information not available 11/01/2016 Do you have difficulty dressing or bathing? No Information not available 11/01/2016 What is your exercise level? None Information not available 11/01/2016 Mental Status Question Answer Note LastModified by Organization D etails LastModified Time Do you have difficulty concentrating, remembering or making decisions? No Information no t available 11/01/2016 Family History Nothing Reported. Medical History Condition Response Other N High Blood Pressure N Breast Cancer N Thyroid Problems N Kidney or Bladder Problems N GI Problems N Depression N Blood Clots N Lung Disease N Acne N Breast Problem N Eating Disorder N Anemia N Anesthesia Complications N Headaches/Migraines N Anxiety Disorder N Diabetes N Ovarian Cancer N Muscle, Joint, or Bone Problems N Blood Transfusions N Seizures/Epilepsy N Polyps N Infertility N Acid Reflux (GERD) N Cancer N Abuse/Domestic Violence N Asthma N Endometriosis N High Cholesterol N Hepatitis N Liver Disease N Heart Disease N Pre-Eclampsia N Osteoporosis N Gynecological History Statement/Question Response Abnormal Pap N Sexually Active? Y Menses Monthly Y STIs/STDs N Date of Last Pap Smear 09/05/2017 Sexual Problems? N Current Control Method BCPs Age at First Child 26 LMP Approximate Obstetrics History GPAL:G 1 P 1 0 0 1 Type Value Full Term 1 Living 1 Total 1 Immunizations Vaccine Type Date Status Note Provider Nam e and Address Organization Details Recorded Time Influenza, split virus, quadrivalent, preservative 6 completed Not Available [facility] 11/30/2019 02:44:48 Past Encounters Encounter ID Performer Location Encounter Start Date Encounter Closed Date Diagnosis/Indication Diagnosis SNOMED-CT Code Diagnosis ICD10 Code Diagnosis Note [id number] MD Grecia William ([place] [address]) 2 [facility] [address] [place] [address] 09/09/2016 12:23:01 09/10/2016 16:29:05 Increased blood pressure 30088617 R03.0 Normal 5250300 2 Z34.90 Third trim piper 02443508 Z3A.30 [id number] MD Grecia William ([place] [address]) [address] [facility] [place] [address] 09/28/2016 12:01:06 09/29/2016 11:25:21 Normal 61855358 Z34.90 [id number] MD Grecia William ([place] [address]) [address] [facility] [place] [address] 10/10/2016 15:15:58 10/11/2016 09:05:12 Normal 61221571 Z34.90 [id number] MD Grecia William ([place] [address]) [address] [facility] [place] [address] 10/18/2016 14:14:39 10/18/2016 19:14:03 Normal 03373951 Z34.90 [id number] MD Grecia William ([place] [address]) [address] [facility] [place] [address] 10/25/2016 16:11:49 10/27/2016 09:13:28 Normal 58885321 Z34.90 [id number] MD Grecia William ([place] [address]) [address] [facility] [place] [address] 11/01/2016 15:51:52 11/03/2016 09:19:22 Normal 02664607 Z34.90 - induced hypertension 48506018 O13.9 [id number] MD Grecia William ([place] [address]) [address] [facility] [place] [address] 11/08/2016 16:30:35 11/08/2016 18:12:27 Normal 63802559 Z34.90 Mild pre-eclampsia 06142 007 O14.03 [id number] [place] [address]) [address] [facility] [place] [address] 11/30/2016 09:13:31 11/30/2016 10:49:[address] Tuan dodson called and patient went there with child and scored a 11 on the depression screening. management 278 939318 Z39.1 [id number] MD Grecia William ([facility] 122) [address] [facility] [place] [address] 01/11/2017 14:57:57 02/08/2017 08:48:[address] Dickerson office called and patient went there with child and scored a 11 on the depression screening. Vaginal discharge 011561 006 N89.8 Uses oral contraception 2370076 Z30.41 [id number] MD Grecia William ([facility] 122) [address] [facility] [place] [address] 01/13/2017 15:41:19 01/13/2017 17:49:18 Menorrhagia 536379310 N92.0 [id number] MD Grecia William ([facility] 122) [address] [facility] [place] [address] 09/05/2017 15:44:40 09/05/2017 17:50:30 Gynecologic examination 00530409 Z01.419 Venereal d isease screening 268229808 Z11.3 Health Concerns Section Related Observation LastModified by Organization Detai ls LastModified Time None Recorded Concern Status LastModified by Organization Details LastModified Time None Recorded Advance Directives Directive N: Payers Encounter Date Sequence Insurance Name Policy Number Policy Tran Covered Member ID Tran Member ID Guarantor Name 11/08/2016 1 [facility] (MEDICAID HMO) Nubia Jeeninga [id number] Nubia Jeeninga 11/30/2016 1 [facility] (MEDICAID HMO) Nubia Jeeninga [id number] Nubia Jeeninga 01/11/2017 1 [facility] (MEDICAID HMO) Nubia Jeeninga [id number] Nubia Jeeninga 01/13/2017 1 [facility] (MEDICAID HMO) Nubia Jeeninga [id number] Nubia Jeeninga 09/05/2017 1 [facility] (MEDICAID HMO) Nubia Jeeninga [id number] Nubia Jeeninga Notes Date Note Type Note Provider Name and Address Organization Details Recorded Time 11/30/2016 text/html Patient is here for removal of vlad s/p primary low transverse section on 11/22/2016. Vilma Colbert MA [facility], [facility] 11/30/2016 11:47:49 01/11/2017 text/html VisitReported bypatient.Onset/Max ng:date of delivery: (11/22/2016) Quality:primary LST C/S Context:complication s of : PIH; complications of labor: arrest of descent; good support from partner/family Associated Symptoms:no abnormal bleeding; no pelvic pain; laceration well healed; no constipation; no fecal incontinence; no dysuria; no urinary incontinence; no fever; no problems; no mastitis Sera Lynn MD Attn: Accounting,[address] [place], [address], [facility] 02/07/2017 15:02:52 01/13/2017 text/html Patient is here for evaluation of heavy vaginal bleeding that started last night. Patient states that she is changing a pad every hour. Patient states that she is concerned that the bleeding was due to due the after . Patient was reassured that since she had a section, there was a no chance that she would have retained products of conception. Sera Lynn MD Attn: Accounting[address] [place], [address], [facility] 01/13/2017 17:49:09 09/05/2017 text/html Annual GYNReport ed bypatient.Menstrual cycle:Normal menses Urinary symptoms:No hematuria; No incontinence Vulva:No genital lesion Vagina:Normal vaginal discharge Breast:No breast pain; No breast lump; No nipple discharge Current Contraception:Oral contraceptives Sexual complaints:No sexual complaints; No pain during intercourse; Normal libido Menopausal Symptoms:No menopausal symptoms; Normal vaginal lubrication Psychological symptoms:No depression; No anxiety; No PMDD Preventive measures:Encourage self breast examination; Encourage regular exercise; Encourage no tobacco use; Followed with Q3 year pap smear and high risk HPV typing Sera Lynn MD Attn: Accounting[address] [place], [address], [facility] 09/05/2017 17:50:19 OBGyn Episode Ob Episode Information Episode Created Date Number of Fetuses Patient Bloodtype Patient rh Status Prepregnancy Weight lbs Domestic Partner Domestic Partner Phone Father Name Circuit Board Repair Technician Status 09/09/20 16 1 O Positive CLOSED Fetus Data First Name Last Name Admitted to NICU Weight (g) Sex Living Outcome Pediatric Complications Fetus ID Race Codes Race Delivery Type Mirian Radha ne false [phone] F true Full Term [id number] White Problems Problem Notes patient was adopted Problem Name Start Date End Date Resolution Snomed Code Not e Recommendation refused 11/02/2016 [id number] PATIENT REFUSE TO GET 24 HOUR URINE DONE , SHE SSID SHE HAS DONE THEM BEFORE AND DOES NOT WANT TO DO ANYMORE, I TOLD PT HOW IMPORTSNT IT IS TO COMPLETE HER PIH LABS, SO THAT SHE CAN BE EVALUATED PROPERLY. PT STILL REFUSED Marcell Calculation Initial Marcell Date Initial Exam Date Initial Exam Provider Initial Ultrasound Date Last Menstrual Period Date Ultra Sound Weeks Gestation 11/13/2016 09/09/2016 okolade 02/06/2016 0 Eighteen To Twenty Week Marcell Update Ultra Sound Date Fundal Height At Umbil Quickening Date Ultra Sound Latest Weeks Gestation Final Marcell Confirmed By Final Marcell Confirmed Date Final Marcell Date Ultra Sound Latest Days Gestation 0 0 Pre- Flowsheet Flowsheet Date 09/09/2016 Gong Score Blood Edema Fundus Height Fundus Units Glucose Ketones Leukocytes Nitrite Labor Signs Protein Cervic Dilation Cervic Effacement Cervic Station trace 33 none negative neg Type Weight in lbs Pre/Post Dialysis Refused 315.923326248268 BP Diastolic BP Location Tested BP Systolic BP Type 102 160 90 138 Fetus Heart Rate Present A 150 Fetus Movement A Yes Comments Patient is being seen by me for the first ob visit. Patient had been receiving care at [facility]. BP was noted. Patient denies headaches, blurring of vision and epigastric pain. Pre-eclampsia labs were ordered. Patient was instructed to go labor and delivery for NST/BPP. Prior records were requested. Flowsheet Date 09/28/2016 Gong Score Blood Edema Fundus Height Fundus Units Glucose Ketones Leukocytes Nitrite Labor Signs Protein Cervic Dilation Cervic Effacement Cervic Station 1+ none 42 none negative 1+ Type Weight in lbs Pre/Post Dialysis Refused 317.219416484051 BP Diastolic BP Location Tested BP Systolic BP Type 74 128 Fetus Heart Rate Present A 154 Present Fetus Movement A Yes Comments Patient offers no complaints . [facility] is larger than dates. Will obtain OB US for interval growth. GBS culture to be done during next visit. labor precautions were given. Flowsheet Date 10/10/2016 Gong Score Blood Edema Fundus Height Fundus Units Glucose Ketones Leukocytes Nitrite Labor Signs Protein Cervic Dilation Cervic Effacement Cervic Station 2+ none negative trace Type Weight in lbs Pre/Post Dialysis Refused 321.894869159688 BP Diastolic BP Location Tested BP Systolic BP Type 104 140 Fetus Heart Rate Present A Present Fetus Movement A Yes Comments BP noted. Patient denies hea daches blurring of vision or epigastric pain. Patient was instructed to go to labor and delivery at [facility] for pre-eclampsia labs and biophysical profile. labor precautions were given. GBS culture was sent. Flowsheet Date 10/18/2016 Gong Score Blood Edema Fundus Height Fundus Units Glucose Ketones Leukocytes Nitrite Labor Signs Protein Cervic Dilation Cervic Effacement Cervic Station trace 41 neg 0cm 50% -3 Type Weight in lbs Pre/Post Dialysis Refused 322.170451918793 BP Diastolic BP Location Tested BP Systolic BP Type 80 138 sitting Fetus Heart Rate Present A 148 Fetus Movement A Yes Comments Patient offers no complaints . Patient denies abdominal pain or contractions. Denies vaginal bleeding or leakage of fluid. Patient reports good movements. Will start surveillance with NST and BPP for gestational HTN. labor precautions were given. Flowsheet Date 10/25/2016 Gong Score Blood Edema Fundus Height Fundus Units Glucose Ketones Leukocytes Nitrite Labor Signs Protein Cervic Dilation Cervic Effacement Cervic Station trace none negative neg 0cm 70% -3 Type Weight in lbs Pre/Post Dialysis Refused 322.868805690376 BP Diastolic BP Location Tested BP Systolic BP Type 84 142 sitting Fetus Heart Rate Present A 145 Fetus Movement A Yes Comments Patient offers no complaints . BP noted. Patient denies headaches, blurring of vision and epigastric pain. Patient denies contractions. Patient reports good movements. Patient was instructed to go to labor and delivery for NST/BPP and pre-eclampsia labs. labor and pre-eclampsia precautions were given. Flowsheet Date 11/01/2016 Gong Score Blood Edema Fundus Height Fundus Units Glucose Ketones Leukocytes Nitrite Labor Signs Protein Cervic Dilation Cervic Effacement Cervic Station neg none negative 1+ Type Weight in lbs Pre/Post Dialysis Refused 319.023957298009 BP Diastolic BP Location Tested BP Systolic BP Type 88 128 sitting 88 144 Fetus Heart Rate Present A 159 Fetus Movement A Yes Comments Patient offers no complaints . Patient denies headaches, blurring of vision and epigastric pain. Patient reports good movements. Will repeat pre-eclampsia labs. Patient will continue surveillance twice weekly. Labor precautions and pre-eclampsia precautions were given. Flowsheet Date 11/08/2016 Gong Score Blood Edema Fundus Height Fundus Units Glucose Ketones Leukocytes Nitrite Labor Signs Protein Cervic Dilation Cervic Effacement Cervic Station neg none moderate 1+ 0cm 70% - 2 Type Weight in lbs Pre/Post Dialysis Refused 325.755512577404 BP Diastolic BP Location Tested BP Systolic BP Type 92 152 Fetus Heart Rate Present A 140 Fetus Movement Comments Patient offers no complaints . BP noted. Patient has 1+ protein on urinalysis. 24hr urine protein collection done on 11/04/2016 was 493. Will schedule the patient for IOL for mild pre-eclampsia. Patient was instructed to go labor and delivery for IOL. Flowsheet Date 11/30/2016 Gong Score Blood Edema Fundus Height Fundus Units Glucose Ketones Leukocytes Nitrite Labor Signs Protein Cervic Dilation Cervic Effacement Cervic Station Type Weight in lbs Pre/Post Dialysis Refused 311.781992018586 BP Diastolic BP Location Tested BP Systolic BP Type 86 128 sitting Fetus Heart Rate Present Fetus Movement Comments Menstrual History Last Menstrual Date Menses Monthly On Bcp Conception Prior Menses Frequency Hcg Plus Date Menarche Onset Age 0302/06/2016 Genetic Screening And Infection History Question Response Note Patient's Age Will Be 35 Years Or Older At Estim ated Date of Delivery false Thalassemia (Thai, Swedish, Mediterranean, Or Background): MCV < 80 false Neural Tube Defect (Meningomyelocele, Spina Bifi da, Or Anencephaly) false Congenital Heart Defect false Down Syndrome false Jose-Sachs (eg, Uatsdin, Cajun, Wolof-Coffey) f alse Deborah Disease false Sickle Cell Disease Or Trait () false Hemophilia Or Other Blood Disorders false Muscular Dystrophy false Cystic Fibrosis false Ansonia's Chorea false Mental Retardation/Autism false If Yes, Was Person Tested For Fragile X? false Other Inherited Genetic Or Chromosomal Disorder false Maternal Metabolic Disorder (eg, Type 1 Diabetes , PKU) false Patient Or Baby's Father Had A Child With Defects Not Listed Above false Recurrent Loss, Or A Stillbirth false Medications (including Suppl ements, Vitamins, Herbs, OTC Drugs), Illicit/Recreational Drugs, Alcohol false If Yes, Agent(s) And Strength/Dosage false Any Other Genetic History false Live With Someone With TB Or Exposed To TB false Patient Or Partner Has History Of Genital Herpes false Rash Or Viral Illness Since Last Menstrual Perio d false History Of STD, Gonorrhea, Chlamydia, HPV, Syphi lis false Other Infection History false Delivery Information Delivery Date Delivery Type Labor Anesthesia Weeks Gestation Incision Type Labor Labor Length Hrs Delivered By Post Complications Tubal Sterilization Discharge Date Comments 7 Induce d [facility]-Ep idural false 5 Dr. Lynn 11/24/2016 Discharge Information Feeding Method Contraceptive Method Maternal HG B and HCT Levels Bottle
--- OUTSIDE RECORDS SUMMARY | 2025-01-23 13:07 | XMS_ITS | Encounter Summary ---
Author Organization [facility] Healthcare Address [address] [place] [address] Care Team Providers Care Hide Grader Name Role Phone Marissa Parrish MD Primary Care Provider + Reason for Visit * Reason Comments Flu Symptoms Encounter Details Date Type Department Care Team (Late st Contact Info) Description 01/23/2025 12:35 PM CDT Emergency [facility] Emergency Department [address] [place] [id number] Social History Tobacco Use Types Packs/Day Years Used Date Smoking Tobacco: Every Day Cigarettes Smokeless Tobacco: Never Comments:5 cigarettes daily Alcohol Use Standard Drinks/Week Comments Yes 0 (1 standard drink = 0.6 oz pur e alcohol) rarely AUDIT-C Answer Date Recorded Frequency of Alcohol Consumption Not on file 02/21/2024 Q2: How many drinks containi ng alcohol do you have on a typical day when you are drinking? Patient does not drink Frequency of Binge Drinking Not on file 02/11 Personal Safety Answer Date Recorded Have you ever been in or are you currently in a harmful physical or emotional relationship or is someone making you feel afraid or unsafe? Denies 01/18/2024 Comments No Sex and Gender Information Value Date Recorded Sex Assigned at Not on file Legal Sex Female 7:51 PM RF MANAGER Gender Identity Female 07/13/2022 4:13 PM CDT Sexual Orientation Not on file documented as of this encounter Last Filed Vital Signs Vital Sign Reading Time Taken Comments Blood Pressure 144/92 01/23/2025 1:02 PM CDT Pulse 81 01/23/2025 1:02 PM CDT Temperature 36.8 C (98.3 F) 01/23/2025 1:02 PM CDT Respiratory Rate 17 01/23/2025 1:02 PM CDT Oxygen Saturation 100% 01/23/2025 1:02 PM CDT Inhaled Oxygen Concentration - - Weight 121.6 kg (268 lb) 01/23/2025 1:02 PM CDT Height 160 cm (5' 3 ) 01/23/2025 1:02 PM CDT Body Mass Index 47.47 01/23/2025 1:02 PM CDT documented in this encounter ED Notes * Janis Roth RN - 01/23/2025 1:00 PM CDT Pt ambulatory to triage for N/V and cough for 1 week. Pt states every time she eats she vomits. Pt also reports brain fog. documented in this encounter Plan of Treatment Scheduled Orders Name Type Priority Associated Diagnoses Order Schedule Comprehensive metabolic panel Lab STAT STAT for 1 Occurrences starting 01/23/2025 until 01/23/2025 CBC with auto differential Lab STAT STAT for 1 Occurrences starting 01/23/2025 until 01/23/2025 Influenza A/B, RSV, and COVID-19 PCR Nasopharyngeal Microbiology Routine Once for 1 Occurrences starting 01/23/2025 until 01/23/2025 documented as of this encounter Visit Diagnoses Not on filedocumented in this encounter Additional Health Concerns Infection Onset Date Last Indicated Resolved Time COVID: Suspected 01/23/2025 01/23/2025 documented as of this encounter Care Teams Hide Grader Relationship Specialty Start Date End Date Marissa Parrish MD PCP - General 06/18/17 documented as of this encounter
--- OUTSIDE RECORDS SUMMARY | 2025-01-23 13:07 | XMS_ITS | Referral Summary ---
Author Organization [facility] Address [address] [place] [address] Care Team Providers Care Export Sales Manager Name Role Phone Marissa Parrish MD Primary Care Provider + Encounters Date Type Department Care Team Description 01/23/2025 12:35 PM CDT Emergency [facility] Emergency Department [address] [place] [address] from Last 3 Months Allergies Active Allergy Reactions Criticality Noted Date Comments Diphth,Pertus(Acell),Tetanus Other (See comments) Low 08/21/2014 Chest pain Human Papillomavirus Vaccine, Quadrivalent Rash Medium 03/30/2015 Lamotrigine Sulfa (Sulfonamide Antibiotics) Tetanus Vaccines And Toxoid Medications busPIRone (BUSPAR) 5 mg tabletIndications: Generalized Anxiety Disorder 08/08/20 17 Active buPROPion SR (WELLBUTRIN SR) 150 mg 12 hr tablet 08/08/20 17 Active albuterol HFA (PROVENTIL HFA,VENTOLIN HFA,PROAIR HFA) 90 mcg/actuation inhaler Inhale 2 puffs every 4 (four) hours as needed 03/30/20 15 Active clindamycin (CLINDAGEL) 1 % gel 07/01/20 20 Active naproxen (NAPROSYN) 500 mg tablet Take 500 mg by mouth 2 (two) times a day as needed 12/08/19 15 Active Trintellix 10 mg tablet Take 10 mg by mouth every morning 05/10/20 21 Active azaTHIOprine (IMURAN) 50 mg tablet Take 3 tablets (150 mg total) by mouth daily 90 tablet 2 02/23/20 22 Active Additional Information Patient not taking.Reported on 02/21/2024 cyclobenzaprine (FLEXERIL) 10 mg tablet Take 1 tablet (10 mg total) by mouth nightly 30 tablet 12/20/19 23 Active Additional Information Patient not taking.Reported on 02/21/2024 hydrOXYchloroQUINE (PLAQUENIL) 200 mg tablet TAKE 2 TABLETS(400 MG) BY MOUTH DAILY 180 tablet 1 01/14/20 23 Active Additional Information Patient not taking.Reported on 02/21/2024 benzonatate (TESSALON) 100 mg capsuleIndications :Cough Take 1 capsule (100 mg total) by mouth every 8 (eight) hours 21 capsule 01/18/20 24 Active Additional Information Patient not taking.Reported on 02/21/2024 ondansetron ODT (ZOFRAN-ODT) 4 mg disintegrating tablet Take 1 tablet (4 mg total) by mouth every 8 (eight) hours as needed for nausea or vomiting 20 tablet 01/18/20 24 Active Additional Information Patient not taking.Reported on 02/21/2024 gabapentin (NEURONTIN) 300 mg capsule Take 1 capsule (300 mg total) by mouth nightly 30 capsule 2 02/23/20 24 Active Active Problems Problem Noted Date Diagnosed Date Other forms of systemic lupus erythematosus 11/2020 Calculus of gallbladder with out cholecystitis without obstruction 09/04/2017 Assessment & Plan (09/04/2017 2:09 PM CDT): The procedure, risks, and benefits of a lap kayla were explained to the patient. All questions were answered. She has elected to schedule surgery with Dr. Pedroza as soon as available. Immunizations Immunization Administration Dates Next Due Hep A, Ped Unspecified 04/21/2006,04/15/2005 Influenza, Quadrivalent, Spl it, Intramuscular 11/01/2016 Influenza, Quadrivalent, Spl it, Preservative Free, Intramuscular 09/14/2020,09/27/2019,08/28/2017 Influenza, Trivalent, IM (MDV) 09/26/2012 Pfizer SARS-CoV-2 Monovalent Vaccination (12+ Yrs) PURPLE 03/19/2021,02/26/2021 Pneumococcal Conjugate PCV 13 09/27/2019 Social History Tobacco Use Types Packs/Day Years [...] on file Legal Sex Female 7:51 PM DOORS PREFITTER Gender Identity Female 07/13/2022 4:13 PM CDT Sexual Orientation Not on file Last Filed Vital Signs Vital Sign Reading [...] Mass Index 47.47 01/23/2025 1:02 PM CDT Plan of Treatment Not on file Additional Health Concerns Infection Onset Date Last Indicated COVID: Suspected 01/23/2025 01/23/2025 Insurance [facility] MEDICAID [facility] Care Teams Export Sales Manager Relationship Specialty Start Date End Date Marissa Parrish MD PCP - General 06/18/17
--- OUTSIDE RECORDS SUMMARY | 2025-01-23 13:07 | XMS_ITS ---
Author Organization [facility] brie Address [address] [place] [address] Care Team Providers Care Natural Gas Plant Supervisor Name Role Phone Deepa Taylor Unavailable [phone] zzzzMigration, zzzzProvider Unavailable Unav ailable Allergies Allergen (clinical drug ingredient) Drug/Non Drug Allergy documented on EMR Reaction Allergy Type Onset Date Status lamotrigine lamoTRIgine Unknown Drug Allergy 07/15/2020 Ac tive Substance with sulfonamide structure and antibacterial mechanism of action (substance) Sulfa Antibiotics Unknown Drug Allergy 07/16/2020 Active Tetanus Toxoids Unknown Drug Allergy 07/16/2020 Active REASON FOR VISIT EMR-Chris Medications Medication SIG (Take, Route, Frequency, Duration) Notes Start Date End Date Status Plaquenil 200 MG take 1 tablet (200 mg) by oral route 2 times per day Oral 2 Active buPROPion HCl 450 mg take 1 tablet (450 mg) by oral route once daily swallowing whole. Do not crush, chew and/or divide. oral 1 *Pick strength-form from [employer] for eRX* Active Humira Pen 40 mg/0.8 mL Subcutaneous Active busPIRone HCl 15 MG prn Oral Active Naproxen 500 MG take 1 tablet (500 mg) by oral route 2 times per day with food Oral 2 Active Encounters Encounter Location Date Provider Diagnosis [facility] [address] [place] [address] 09/03/2023 zzzzProvider zzzzMigration Plan Of Treatment No Information Progress Notes * Venkat RAINESOB: [birth year] (34 yo F)Acc No.[id number]:09/03/2023 Patient: Nubia MENDOZA :1990 A ge:32 Y S ex:Female Address:[address] [place] [address], [address] Subjective: * Chief Complaints: * E MR-Chris * Medical History: * Surgical History: A CL repair; [id number]; [id number] lump; 2020-07-15C section; 2020-07-15 * Hospitalization/Major Diagno stic Procedure: * Family History: M igrated Family History: Diabetes , Heart Disease . * Social History: M igrated Social History: M igrated Social History: :: 1 Daughter , :: Step Children :: note : twin girls (step children) , Exercise :: Active but no formal exercise :: note : 07/16/2020 - walks a lot at work, Marital Status :: Single , Substance Use :: Alcohol-Does not give any significant history , Substance Use :: Tobacco :: Current every day :: note : 07/16/2020 - 2-5 cigs per day. * Medications: T akingbuPROPion HCl 450 mg tablet extended release 24 hr take 1 tablet (450 mg) by oral route once daily swallowing whole. Do not crush, chew and/or divide. oral 1 , Notes to Pharmacist: *Pick strength-form from [facility] for eRX*Plaquenil 200 MG Tablet take 1 tablet (200 mg) by oral route 2 times per day Oral 2 Naproxen 500 MG Tablet take 1 tablet (500 mg) by oral route 2 times per day with food Oral 2 busPIRone HCl 15 MG Tablet prn Oral Humira Pen 40 mg/0.8 mL Pen-injector Kit Subcutaneous Taking buPROPion HCl 450 mg tablet extended release 24 hr take 1 tablet (450 mg) by oral route once daily swallowing whole. Do not crush, chew and/or divide. oral 1 , Notes to Pharmacist: *Pick strength-form from [facility] for eRX*Taking Plaquenil 200 MG Tablet take 1 tablet (200 mg) by oral route 2 times per day Oral 2 Taking Naproxen 500 MG Tablet take 1 tablet (500 mg) by oral route 2 times per day with food Oral 2 Taking busPIRone HCl 15 MG Tablet prn Oral Taking Humira Pen 40 mg/0.8 mL Pen-injector Kit Subcutaneous * Allergies: l amoTRIgine: Allergy - Onset Date 07/15/2020Sulfa Antibiotics: Allergy - Onset Date 07/16/2020Tetanus Toxoids : Allergy - Onset Date 07/16/2020 Objective: * Vitals: * Physical Examination: Assessment: Plan: * Treatment: * Procedure Codes: * * Date:
--- OUTSIDE RECORDS SUMMARY | 2025-01-23 13:07 | XMS_ITS | Clinical Summary ---
Author Organization [facility] Address [address] [place] [address] Phone Care Team Providers Care Parking Control Officer Name Role Phone Marissa Parrish MD Primary Care Provider Allergies Active Allergy Reactions Criticality Noted Date Comments Human Papillomavirus 4-Valent Recombinant Vaccine Rash 11/13/2018 Lamotrigine Rash 11/13/2018 Sulfa Antibiotics Rash 11/13/2018 Floadyv-Efoqgf-Lanwf Pertussis Other (see Comments) 11/13/2018 Chest pain Medications BuPROPion HCl ER, XL, (FORFIVO XL) 450 MG TABLET SR 24 HR Take by mouth. Active BusPIRone HCl (BUSPAR PO) Take by mouth. Active Social History Tobacco Use Types Packs/Day Years Used Date Smoking Tobacco: Every Day Cigarettes Smokeless Tobacco: Never Alcohol Use Standard Drinks/Week Comments No 0 (1 standard drink = 0.6 oz pur e alcohol) Comments No Sex and Gender Information Value Date Recorded Sex Assigned at Not on file Legal Sex Female 4:40 PM DAIRY FARMER Gender Identity Not on file Sexual Orientation Not on file Last Filed Vital Signs Vital Sign Reading Time Taken Comments Blood Pressure 140/68 11/13/2018 5:45 PM DAIRY FARMER Pulse 98 11/13/2018 5:45 PM DAIRY FARMER Temperature 36.7 C (98 F) 11/13/2018 4:45 PM DAIRY FARMER Respiratory Rate 20 11/13/2018 4:45 PM DAIRY FARMER Oxygen Saturation 98% 11/13/2018 5:45 PM DAIRY FARMER Inhaled Oxygen Concentration - - Weight 131.5 kg (290 lb) 11/13/2018 4:45 PM DAIRY FARMER Height 160 cm (5' 3 ) 11/13/2018 4:45 PM DAIRY FARMER Body Mass Index 51.37 11/13/2018 4:45 PM DAIRY FARMER Plan of Treatment Not on file Insurance MEDICAID [facility] Care Teams Parking Control Officer Relationship Specialty Start Date End Date Marissa Parrish MD PCP - General Family Medicine 11/13/18
--- OUTSIDE RECORDS SUMMARY | 2025-01-23 13:07 | XMS_ITS ---
Author Organization [facility] brie Address [address] [place] [address] Care Team Providers Care Attending Urologist Name Role Phone Deepa Taylor Unavailable [phone] zzzzMigration, zzzzProvider Unavailable Unav ailable REASON FOR VISIT [facility] Encounters Encounter Location Date Provider Diagnosis [facility] [address] [place] [address] 09/02/2023 zzzzProvider zzzzMigration Plan Of Treatment No Information Progress Notes * Venkat RAINESOB: [birth year] (34 yo F)Acc No.[id number]:09/02/2023 Patient: Jaci LAMB Nubia :1990 A ge:32 Y S ex:Female Address:[address] [place] [address], [address] Subjective: * Chief Complaints: * E MR-Chris * Medical History: * Surgical History: * Hospitalization/Major Diagno stic Procedure: * Medications: Objective: * Vitals: * Physical Examination: Assessment: Plan: * Treatment: * Procedure Codes: * * Date:
--- OUTSIDE RECORDS SUMMARY | 2025-01-23 13:07 | XMS_ITS | Clinical Summary ---
Author Organization [facility] Address [address] [place] [address] Care Team Providers Care Silk Washing Machine Operator Name Role Phone Marissa Parrish MD Primary Care Provider + Allergies Active Allergy Reactions Criticality Noted Date [...] with Dr. Pedroza as soon as available. Encounters Date Type Department Care Team Description 01/23/2025 12:35 PM CDT Emergency [facility] Emergency Department [address] [place] [address] from Last 3 Months Immunizations Immunization Administration Dates Next Due Hep A, Ped Unspecified 04/21/2006,04/15/2005 Influenza, Quadrivalent, Spl it, Intramuscular 11/01/2016 Influenza, Quadrivalent, Spl it, Preservative Free, Intramuscular 09/14/2020,09/27/2019,08/28/2017 Influenza, Trivalent, IM (MDV) 09/26/2012 Pfizer SARS-CoV-2 Monovalent Vaccination (12+ Yrs) PURPLE 03/19/2021,02/26/2021 Pneumococcal Conjugate PCV 13 09/27/2019 Surgical History Surgery Date Site/Laterality Comments SECTION ARTHROSCOPIC REPAIR ACL Left Left Knee surgery BREAST LUMPECTOMY Left Benign mass CHOLECYSTECTOMY 09/18/2017 Laparoscopic cholecystectomy Medical History Medical History Date Comments Depression Anxiety Kidney stones 09/04/2017 Family History * Patient is adopted Medical History Relation Name Comments Diabetes Other Heart disease Other Relation Name Status Comments Other Social History Tobacco Use Types Packs/Day Years [...] on file Legal Sex Female 7:51 PM FINANCE 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 Gender Identity Female 07/13/2022 4:13 PM CDT Sexual Orientation Not on file Obstetrics History Last Filed Vital Signs Vital Sign Reading [...] 01/23/2025 1:02 PM CDT Plan of Treatment Health Maintenance Due Date Last Done Comments Cervical Cancer Screening 1990 Depression Screening 1990 Hepatitis C Screening 1990 DTaP/Tdap/Td Vaccine (1 - Tdap) 2000 Varicella Vaccines (1 of 2 - 13+ 2-dose series) 2002 Hepatitis B Screening 2007 Regular Well Visit/Exam 18-64 2007 Zoster Vaccine (1 of 2) 2008 Pneumococcal vaccine <65 (2 of 2 - PPSV23) 11/22/2019 09/27/2019 Covid-19 Vaccine (3 - Pfizer risk series) 04/16/2021 03/19/2021, 02/26/2021 Influenza Vaccine (#1) 2024 , 09/27/2019, 08/28/2017, Additional history exists HPV Vaccines Aged Out No longer eligi ble based on patient's age to complete this topic Additional Health Concerns Infection Onset Date Last Indicated COVID: Suspected 01/23/2025 01/23/2025 Insurance [facility] [place] [address] [facility] Care Teams Silk Washing Machine Operator Relationship Specialty Start Date End Date Marissa Parrish MD PCP - General 06/18/17
--- OUTSIDE RECORDS SUMMARY | 2025-01-23 13:08 | XMS_ITS | Clinical Summary ---
Author Organization [facility] Address [address] [place] [address] Care Team Providers Care Institutional Aide Name Role Phone CullenalisiaMalissa Primary Care Provider Unavailabl e Source Comments [facility],non-owned Affiliates and Associated Physician Practices is amultiple site organization consisting of ambulatory clinics and hospital sitesin [place], [place], [place] and [place]. This disclosure is being madepursuant to the Care Everywhere program and may not contain all information available regarding this patient. Last updated 18.[facility] Allergies Active Allergy Reactions Criticality Noted Date Comments Sulfa Drugs Rash Medium 12/08/2014 Medications * Be aware that medications may not be up to date on this document. Alwaysverify current medications with the patient. Medication Sig Dispensed Refills Start Date End Date Status hydrocodone-acetaminop hen (NORCO) 5-325 MG tablet Take 1 Tab by mouth every 4 hours as needed for Pain. 20 Tab 0 12/08/2014 Active naproxen (NAPROSYN) 500 MG tablet Take 1 Tab by mouth 2 times daily as needed for Pain. 20 Tab 0 12/08/2014 Active Social History Tobacco Use Types Packs/Day Years Used Date Smoking Tobacco: Every Day Sex and Gender Information Value Date Recorded Sex Assigned at Not on file Gender Identity Not on file Sexual Orientation Not on file Last Filed Vital Signs Vital Sign Reading Time Taken Comments Blood Pressure 124/80 01/02/2017 2:20 PM MINER HELPER Pulse 93 01/02/2017 2:20 PM MINER HELPER Temperature 36.8 C (98.3 F) 01/02/2017 2:20 PM MINER HELPER Respiratory Rate 20 01/02/2017 2:20 PM MINER HELPER Oxygen Saturation 97% 01/02/2017 2:20 PM MINER HELPER Inhaled Oxygen Concentration - - Weight 131.5 kg (290 lb) 01/02/2017 2:20 PM MINER HELPER Height 160 cm (5' 3 ) 01/02/2017 2:20 PM MINER HELPER Body Mass Index 51.37 01/02/2017 2:20 PM MINER HELPER Plan of Treatment Health Maintenance Due Date Last Done Comments PAP SMEAR 1989 HIV SCREENING 2004 HEPATITIS C SCREENING 11/30/2007 DTAP/TDAP/TD VACCINES (1 - Tdap) 2008 HEPATITIS B VACCINE (1 of 3 - 19+ 3-dose series) 2008 COVID-19 VACCINE ( - 2023-2 5 season) 2024 INFLUENZA VACCINE (#1) 2024 DEPRESSION SCREENING 11/13/2024 ZOSTER VACCINE (1 of 2) 2039 HIB VACCINE Aged Out No longer eligi ble based on patient's age to complete this topic HPV VACCINE Aged Out No longer eligi ble based on patient's age to complete this topic MENINGOCOCCAL (Group B) VACC INE SHARED DECISION-MAKING Aged Out No longer eligibl e based on patient's age to complete this topic MENINGOCOCCAL GROUPS A/C/Y/W VACCINE Aged Out No longer eligible b ased on patient's age to complete this topic PNEUMOCOCCAL VACCINE Aged Out No long er eligible based on patient's age to complete this topic Care Teams Institutional Aide Relationship Specialty Start Date End Date Malissa Zamora Update Information PCP - General 04/24/19
--- OUTSIDE RECORDS SUMMARY | 2025-01-23 13:08 | XMS_ITS | Patient Health Summary ---
Author Organization [facility] Address [address] [place] [address] Care Team Providers Care Art Instructor Name Role Phone Noah Malissa Primary Care Provider Unavailabl e Note from [facility],non-owned Affiliates and Associated Physician Practices is amultiple site organization consisting of ambulatory clinics and hospital sitesin [place], [place], [place] and [place]. This disclosure is being madepursuant to the Care Everywhere program and may not contain all information available regarding this patient. Last updated 18.[facility] Allergies * Sulfa Drugs(Rash) -Medium Criticality Medications * Be aware that medications may not be up to date on this document. Alwaysverify current medications with the patient. * hydrocodone-acetaminophen (NORCO) 5-325 MG tablet(Started 12/08/2014) Take 1 Tab by mouth every 4 hours as needed for Pain. * naproxen (NAPROSYN) 500 MG tablet(Started 12/08/2014) Take 1 Tab by mouth 2 times daily as needed for Pain. Social History Tobacco Use Types Packs/Day Years Used Date Smoking Tobacco: Every Day Sex and Gender Information Value Date Recorded Sex Assigned at Not on file Gender Identity Not on file Sexual Orientation Not on file Last Filed Vital Signs Vital Sign Reading Time Taken Comments Blood Pressure 124/80 01/02/2017 2:20 PM GENERAL COUNSELOR Pulse 93 01/02/2017 2:20 PM GENERAL COUNSELOR Temperature 36.8 C (98.3 F) 01/02/2017 2:20 PM GENERAL COUNSELOR Respiratory Rate 20 01/02/2017 2:20 PM GENERAL COUNSELOR Oxygen Saturation 97% 01/02/2017 2:20 PM GENERAL COUNSELOR Inhaled Oxygen Concentration - - Weight 131.5 kg (290 lb) 01/02/2017 2:20 PM GENERAL COUNSELOR Height 160 cm (5' 3 ) 01/02/2017 2:20 PM GENERAL COUNSELOR Body Mass Index 51.37 01/02/2017 2:20 PM GENERAL COUNSELOR Procedures * STREP A SCREEN - POINT OF CARE (AMB) STL(Performed 01/02/2017) Performed for Acute nasopharyngitis (common cold) * XR ANKLE LEFT 3VW OR MORE(Performed 12/08/2014) Performed for Leg pain, left * XR TIBIA FIBULA LEFT 2VW(Performed 12/08/2014) Performed for Leg pain, left * GROSS + MICRO EXAM(Performed 02/23/2006) Results * STREP A SCREEN (01/02/2017) Strep A Rapid POCT Negative Negative Strep A Internal Control Present Lot # [id number] Expiration Date 09/06/2018 Throat ENTIRE THROAT (SURFACE REGION OF NECK) / Unknown 01/02/2017 Wendy Badillo PRODUCTION ROUSTABOUT-BILLBOARD INSTALLER LAB - POINT OF CA RE ORDERABLES * XR ANKLE 3+ VW LEFT (12/08/2014 7:42 AM GENERAL COUNSELOR) Anatomical Region Laterality Modality Lower Extremity Radiographic Jaqueline ging 12/08/2014 7:59 AM GENERAL COUNSELOR Impressions 12/08/2014 8:07 AM GENERAL COUNSELOR Soft tissue swelling. No fracture. Edited by Wendy Bright on 12/08/2014 8:04 AM Narrative 12/08/2014 8:07 AM GENERAL COUNSELOR LEFT ANKLE 3 VIEWS INDICATION: Left ankle pain, trauma and injury. FINDINGS: Three views of the left ankle show soft tissue swelling medially and laterally. There is no acute fracture, subluxation or dislocation. If symptoms persist, follow up exam may be of further use to exclude an occult process. Procedure Note Sreekanth Shoemaker MD - 12/08/2014 LEFT ANKLE 3 VIEWS INDICATION: Left ankle pain, trauma and injury. FINDINGS: Three views of the left ankle show soft tissue swelling medially and laterally. There is no acute fracture, subluxation or dislocation. If symptoms persist, follow up exam may be of further use to exclude an occult process. IMPRESSION Soft tissue swelling. No fracture. Edited by Wendy Bright on 12/08/2014 8:04 AM Piotr Ledesma MD DIAGNOSTIC IMAGING O RDERABLES * XR TIBIA AND FIBULA 2 VW LEFT (12/08/2014 7:42 AM GENERAL COUNSELOR) Anatomical Region Laterality Modality Lower Extremity Radiographic Jaqueline ging 12/08/2014 8:01 AM GENERAL COUNSELOR Impressions 12/08/2014 8:07 AM GENERAL COUNSELOR NO ACUTE OSSEOUS ABNORMALITY. Edited by Zhane Hyatt on 12/08/2014 8:06 AM Narrative 12/08/2014 8:07 AM GENERAL COUNSELOR LEFT TIBIA AND FIBULA 2 VIEWS INDICATION: Left tibia and fibula pain, fell on ice. FINDINGS Two views of the left tibia and fibula show no evidence of acute displaced fracture, subluxation or dislocation. Procedure Note Sreekanth Shoemaker MD - 12/08/2014 LEFT TIBIA AND FIBULA 2 VIEWS INDICATION: Left tibia and fibula pain, fell on ice. FINDINGS Two views of the left tibia and fibula show no evidence of acute displaced fracture, subluxation or dislocation. IMPRESSION NO ACUTE OSSEOUS ABNORMALITY. Edited by Zhane Hyatt on 12/08/2014 8:06 AM Piotr Ledesma MD DIAGNOSTIC IMAGING O RDERABLES * GROSS + MICRO EXAM (02/23/2006 1:20 PM CDT) Result CASE NUMBER [id number] [facility] PATH REPORT Comment: ORDERING PHYSICIAN DANITA GONG SPECIMEN TYPE Stomach CLINICAL HISTORY The patient is a 15-year-old girl with abdominal pain who underwent upper endoscopy. GROSS DESCRIPTION The specimens are received fixed in formalin in three containers for gross and microscopic examination. In the first container, labeled A, stomach, are two, 3 mm, soft, yellow-mullen tissue fragments submitted in toto as A . In the next container, labeled B, esophagus, are two, soft, mena-pink tissue fragments measuring 3 mm and 5 mm in greatest dimension. The specimen is submitted in toto as B . In the next container, labeled C, duodenum, are two, 3 mm, soft, yellow-mullen tissue fragments submitted in toto as C . (CT/pg) MICROSCOPIC DESCRIPTION 12 H/E (CSA/pg) DIAGNOSIS DIAGNOSIS A) STOMACH, BIOPSY - NO PATHOLOGIC DIAGNOSIS. B) ESOPHAGUS, BIOPSY - NO PATHOLOGIC DIAGNOSIS. C) DUODENUM, BIOPSY - NO PATHOLOGIC DIAGNOSIS. This case has been personally reviewed and interpreted by the attending (teaching) pathologist. Laboratory Inspector MATEO PEÑA PATHOLOGIST Jayden Lees M.D. ELECTRONICALLY KULDEEP Jayden Lees MISCELLANEOUS SAMPLES / Unknown 02/23/2006 1:20 PM CDT 02/23/2006 2:08 PM CDT Historical Provider LAB - PATHOLOGY/C YTOLOGY ORDERABLES [facility] PATH REPORT Care Teams Art Instructor Relationship Specialty Start Date End Date Malissa Zamora Update Information PCP - General 04/24/19
--- OUTSIDE RECORDS SUMMARY | 2025-01-23 13:08 | XMS_ITS | Patient Health Record ---
Author Organization [facility] Address [address] [place] [address] Care Team Providers Care Molder Machine Tender Name Role Phone Deepa Taylor Unavailable [phone] Reason For Referral No Information Medications Medication SIG (Take, Route, Frequency, Duration) Notes Start Date End Date Status Plaquenil 200 MG take 1 tablet (200 mg) by oral route 2 times per day Oral 2 Active buPROPion HCl 450 mg take 1 tablet (450 mg) by oral route once daily swallowing whole. Do not crush, chew and/or divide. oral 1 *Pick strength-form from [employer] for eRX* Active Humira Pen 40 mg/0.8 mL Subcutaneous Active busPIRone HCl 15 MG prn Oral Active Naproxen 500 MG take 1 tablet (500 mg) by oral route 2 times per day with food Oral 2 Active Plan Of Treatment No Information Insurance Providers Payer Name Payer Address Payer Phone Subscriber Number Group Number Insured Name Patient Relationship to Insured Coverage Start Date Coverage End Date [facility] [address] ADELINA Sheffield [id number] [phone] [id number] Nubia Lazar Self - patient is the insured Medical (General) History Surgical History Surgery Date(Month/Year) cholecystectomy; 2020-07-15 C section; 2020-07-15 ACL repair; 2020-07-15 breast lump; 2020-07-15
--- OUTSIDE RECORDS SUMMARY | 2025-01-23 13:08 | XMS_ITS | Referral Summary ---
Author Organization [facility] [employer] Address [address] [place] [address] Care Team Providers Care Electric Motors Salesperson Name Role Phone CullenalisiaMalissa Primary Care Provider Unavailabl e Source Comments [facility],non-owned Affiliates and Associated Physician Practices is amultiple site organization consisting of ambulatory clinics and hospital sitesin [place], [place], [place] and [place]. This disclosure is being madepursuant to the Care Everywhere program and may not contain all information available regarding this patient. Last updated 18.[facility] Allergies Active Allergy Reactions Criticality Noted Date [...] Comments Blood Pressure 124/80 01/02/2017 2:20 PM BIZTALK SOFTWARE DEVELOPER Pulse 93 01/02/2017 2:20 PM BIZTALK SOFTWARE DEVELOPER Temperature 36.8 C (98.3 F) 01/02/2017 2:20 PM BIZTALK SOFTWARE DEVELOPER Respiratory Rate 20 01/02/2017 2:20 PM BIZTALK SOFTWARE DEVELOPER Oxygen Saturation 97% 01/02/2017 2:20 PM BIZTALK SOFTWARE DEVELOPER Inhaled Oxygen Concentration - - Weight 131.5 kg (290 lb) 01/02/2017 2:20 PM BIZTALK SOFTWARE DEVELOPER Height 160 cm (5' 3 ) 01/02/2017 2:20 PM BIZTALK SOFTWARE DEVELOPER Body Mass Index 51.37 01/02/2017 2:20 PM BIZTALK SOFTWARE DEVELOPER Plan of Treatment Not on file Care Teams Electric Motors Salesperson Relationship Specialty Start Date End Date Malissa Zamora Update Information PCP - General 04/24/19
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
--- OUTSIDE RECORDS SUMMARY | 2025-01-23 13:08 | XMS_ITS | Clinical Summary ---
Author Organization [facility] Address [address] [place] [address] Care Team Providers Care Tank Assembler Name Role Phone Marissa Parrish MD Primary Care Provider Allergies Active Allergy Reactions Criticality Noted Date Comments Diphth,Pertus(Acell),Tetanus Other (See Comments) 08/21/2014 Chest pain Human Papillomavirus Vaccine, Quadrivalent Rash Low 03/30/2015 Lamotrigine Rash Low 03/30/2015 Sulfa (Sulfonamide Antibiotics) Rash Low 08/21/2014 Medications VENLAFAXINE HCL (EFFEXOR XR ORAL) Take by mouth. Activ e albuterol sulfate (VENTOLIN HFA) 90 mcg/Actuation inhaler Take 2 Puffs by inhalation every 4 hours as needed for Shortness of Breath. 6.7 Gram 0 5 Active Active Problems Problem Noted Date Diagnosed Date Tobacco use 02/10/2016 Family History * Patient is adopted Relation Name Status Comments Father Alive Mother Alive Social History Tobacco Use Types Packs/Day Years Used Date Smoking Tobacco: Every Day Cigarettes Smokeless Tobacco: Never Alcohol Use Standard Drinks/Week Comments Yes 0 (1 standard drink = 0.6 oz pur e alcohol) soc Comments No Sex and Gender Information Value Date Recorded Sex Assigned at Not on file Legal Sex Female 3:22 PM CDT Gender Identity Not on file Sexual Orientation Not on file Last Filed Vital Signs Vital Sign Reading Time Taken Comments Blood Pressure 136/86 02/29/2016 4:02 PM CDT Pulse 119 02/29/2016 4:02 PM CDT Temperature 37.4 C (99.4 F) 02/29/2016 4:02 PM CDT Respiratory Rate 20 02/29/2016 4:02 PM CDT Oxygen Saturation 96% 02/29/2016 4:02 PM CDT Inhaled Oxygen Concentration - - Weight 131.5 kg (290 lb) 02/29/2016 4:02 PM CDT Height 157.5 cm (5' 2 ) 02/10/2016 1:49 PM CDT Body Mass Index 53.04 02/10/2016 1:49 PM CDT Plan of Treatment Health Maintenance Due Date Last Done Comments DTAP/TDAP/TD VACCINES (1 - Tdap) 2008 HEPATITIS B VACCINES (1 of 3 - 19+ 3-dose series) 2008 CERVICAL CANCER SCREENING 2019 INFLUENZA VACCINE (#1) 2024 HPV VACCINES Aged Out No longer eligi ble based on patient's age to complete this topic Care Teams Tank Assembler Relationship Specialty Start Date End Date Marissa Parrish MD PCP - General Family Practice 10/29/15
== END 2025-01-23 12:03 | disposition home or self-care (01) ==
PROVIDERS: Emergency Provider Nurse Practitioner; PCP Family Medicine
DX: K58.9 Irritable bowel syndrome, unspecified (principal); R11.2 Nausea with vomiting, unspecified
CPT/HCPCS: 99213; G0463

== ENCOUNTER 2025-02-25 14:31 | Outpatient (CLI) | payer MEDICAID, SELFPAY ==
--- OUTSIDE RECORDS SUMMARY | 2025-02-25 15:39 | XMS_ITS | Referral Summary ---
Author Organization [facility] Address [address] [place] [address] Care Team Providers Care Cardiographer Name Role Phone Marissa Parrish MD Primary Care Provider + Encounters Date Type Department Care Team Description 01/23/2025 2:43 PM CDT - 01/23/2025 4:29 PM CDT Emergency [facility] Emergency Department 1 [place] [address] Nausea (Primary Dx); Memory changes Discharge Disposition: Discharge to home or self care from Last 3 Months Allergies Active Allergy [...] nightly 30 capsule 2 02/23/20 24 Active ondansetron ODT (ZOFRAN-ODT) 4 mg disintegrating tabletIndications: Nausea Take 1 tablet (4 mg total) by mouth every 8 (eight) hours as needed for nausea Collaborating physician Tuan Zhang MD 20 tablet 01/24/20 25 Active promethazine-DM (PROMETHAZINE-DM) 1.25-3 mg/mL syrup Take 5 mL by mouth 4 (four) times a day as needed for cough Collaborating physician Tuan Zhang MD 118 mL 01/24/20 25 Active Active Problems Problem Noted Date Diagnosed Date Nausea 01/23/2025 Memory changes 01/23/2025 Other forms of systemic lupus erythematosus 11/2020 [...] making you feel afraid or unsafe? Denies 01/23/2025 Comments No Sex and Gender Information Value Date Recorded Sex Assigned at Not on file Legal Sex Female 7:51 PM HOGSHEAD STRIPPER Gender Identity Female 07/13/2022 4:13 PM CDT [...] CDT Plan of Treatment Not on file Procedures Procedure Name Priority Date/Time Associated Diagnosis Comments XR CHEST 1 VIEW ED 01/23/2025 3:29 PM CDT EGFR STAT 01/23/2025 1:25 PM CDT DIFFERENTIAL AUTO STAT 01/23/2025 1:2 5 PM CDT CBC WITH AUTO DIFFERENTIAL STAT 01/23/2025 1:25 PM CDT COMPREHENSIVE METABOLIC PANEL STAT 01/23/2025 1:25 PM CDT INFLUENZA A/B, RSV, AND COVID-19 PCR STAT 01/23/2025 1:25 PM CDT from Last 3 Months Results * XR Chest 1 Vw Portable (01/23/2025 3:29 PM CDT) Anatomical Region Laterality Modality Body, Chest N/A Computed Radiogr aphy 01/23/2025 3:52 PM CDT Narrative 01/23/2025 3:54 PM CDT EXAM DESCRIPTION: XR CHEST 1 VIEW REASON FOR STUDY: Persistent cough Pt ambulatory to triage for N/V and cough for 1 week. Pt states every time she eats she vomits. Pt also reports brain fog. TECHNIQUE: Frontal radiographic view(s) of the chest. COMPARISON: 01/18/2024. FINDINGS: LUNGS: No focal opacity, pleural effusion, or pneumothorax. HEART/MEDIASTINUM: Cardiac silhouette normal in size. Mediastinal and hilar contours appear normal. LINES/TUBES: None. BONES: No acute osseous abnormality. IMPRESSION: No acute cardiopulmonary abnormality. THIS IS AN ELECTRONICALLY VERIFIED FINAL REPORT 01/23/2025 3:54 PM - Electronically signed by Gerardo David M.D. CH: SUSIE Report ID: [id number] Reading Location: [id number] Procedure Note Gerardo David Jr., MD - 01/23/2025 EXAM DESCRIPTION: XR CHEST 1 VIEW REASON FOR STUDY: Persistent cough Pt ambulatory to triage for N/V and cough for 1 week. Pt states every timeshe eats she vomits. Pt also reports brain fog. TECHNIQUE: Frontal radiographic view(s) of the chest. COMPARISON: 01/18/2024. FINDINGS: LUNGS: No focal opacity, pleural effusion, or pneumothorax. HEART/MEDIASTINUM: Cardiac silhouette normal in size. Mediastinal andhilar contours appear normal. LINES/TUBES: None. BONES: No acute osseous abnormality. IMPRESSION: No acute cardiopulmonary abnormality. THIS IS AN ELECTRONICALLY VERIFIED FINAL REPORT 01/23/2025 3:54 PM - Electronically signed by Gerardo David M.D. CH: Report ID: [id number] Reading Location: [id number] Kar MACIAS IMG XR PROCEDURES Final Resu lt * Influenza A/B, RSV, and COVID-19 PCR Nasopharyngeal (01/23/2025 1:25 PM CDT) COVID-19 RNA Negative Negative Influenza A RNA Negative Negative [facility] ([place]) Influenza B RNA Negative Negative [facility] ([place]) RSV RNA Negative Negative [facility] Comment: Interpretive data: Testing performed by [facility]. This test is performed using the [employer] Xpert Xpress CoV-2/Flu/RSV plus assay. This is a multiplex, real- time reverse transcriptase PCR assay intended for the qualitative detection of nucleic acid from SARS-CoV-2, influenza A, influenza B, and respiratory syncytial virus. This assay has been cleared by the [place] Food and Drug administration. The performance characteristics have been verified by the [facility]. Results must be considered in the clinical context, and a negative result does not rule out infection. Interpretive Data last revised 2023 Nasopharyngeal 01/23/2025 1: 25 PM CDT 01/23/2025 1:29 PM CDT Narrative JOSE OLIVA ([place]) - 01/23/2025 2:11 PM CDT Is the Patient experiencing symptoms consistent with COVID?->Yes Cr Patel MD LAB MICROBIOLOGY - GENERAL O RDERABLES Final Result Performing Organization Address [facility] Co de Phone Number JOSE OLIVA (ALEXANDER) [address] [place] [address] [employer] [place] [address] * eGFR (01/23/2025 1:25 PM CDT) eGFR >90 >=60 mL/min/1. 73 m2 Comment: Interpretive Data Reference Interval Normal >/= 90 mL/min/1.73m2 Mildly decreased* 60 - 89 mL/min/1.73m2 Mildly to moderately decreased 45 - 59 mL/min/1.73m2 Moderately to severely decreased 30 - 44 mL/min/1.73m2 Severely decreased 15 - 29 mL/min/1.73m2 Kidney Failure < 15 mL/min/1.73m2 *Relative to young adult level Estimated glomerular filtration rate is determined by the 2020 CKD-EPI equation recommended by the National Kidney Foundation (A Unifying Approach to GFR Estimation: Recommendations of the NKF-ASK Task Force on Reassessing the Inclusion of Race in Diagnosing Kidney Disease, JASN 2020). The CKD-EPI equation should not be used for patients with unstable renal function and has not been validated in children and those over 70. Current interpretive data was last reviewed 2021. Blood 01/23/2025 1:25 PM CDT 01/23/2025 1:28 PM CDT Cr Patel MD LAB BLOOD ORDERABLES Final R esult Performing Organization Address City/[facility]/ZIP Co de Phone Number JOSE OLIVA (ALEXANDER) [address] [facility] Department [place] [employer] [place] [address] * Differential, auto (01/23/2025 1:25 PM CDT) Neutrophil abs 3.9 1.5 - 6.5 K/cumm Imm gran abs 0.0 0.0 - 0.1 K/cumm [facility] ([place]) Lymphocyte abs 1.0 0.8 - 3.3 K/cumm [facility] ([place]) Monocyte abs 0.4 0.2 - 0.8 K/cumm [facility] ([place]) Eosinophil abs 0.0 0.0 - 0.5 K/cumm [facility] ([place]) Basophil abs 0.0 0.0 - 0.1 K/cumm [facility] ([place]) Neutrophil pct 72.0 % [facility] ([place]) Comment: Interpretive Data Percent cell count reference ranges are not reported, since discordance with absolute values may lead to misinterpretation of CBC data. Current Interpretive Data was last revised on 2018. Imm gran pct 0.4 % [facility] ([place]) Comment: Interpretive Data Percent cell count reference ranges are not reported, since discordance with absolute values may lead to misinterpretation of CBC data. Current Interpretive Data was last revised on 2018. Lymphocyte pct 18.6 % [facility] ([place]) Comment: Interpretive Data Percent cell count reference ranges are not reported, since discordance with absolute values may lead to misinterpretation of CBC data. Current Interpretive Data was last revised on 2018. Monocyte pct 7.8 % [facility] ([place]) Comment: Interpretive Data Percent cell count reference ranges are not reported, since discordance with absolute values may lead to misinterpretation of CBC data. Current Interpretive Data was last revised on 2018. Eosinophil pct 0.7 % [facility] ([place]) Comment: Interpretive Data Percent cell count reference ranges are not reported, since discordance with absolute values may lead to misinterpretation of CBC data. Current Interpretive Data was last revised on 2018. Basophil pct 0.5 % [facility] ([place]) Comment: Interpretive Data Percent cell count reference ranges are not reported, since discordance with absolute values may lead to misinterpretation of CBC data. Current Interpretive Data was last revised on 2018. Blood 01/23/2025 1:25 PM CDT 01/23/2025 1:28 PM CDT Cr Patel MD LAB BLOOD ORDERABLES Final R esult [facility] ([place]) [address] [facility] [employer] [place] [address] * (ABNORMAL) CBC with auto differential (01/23/2025 1:25 PM CDT) WBC 5.5 3.8 - 9.9 K/cumm Hgb 10.9(L) 11.9 - 15.5 g/dL [facility] ([place]) Hct 36.7 35.6 - 45.5 % [facility] ([place]) Plt 274 150 - 400 K/cumm [facility] ([place]) MPV 11.4 9.1 - 12.3 fL [facility] ([place]) RBC 4.93 3.90 - 5.20 M/cumm [facility] ([place]) MCV 74.4(L) 81.3 - 96.4 fL [facility] ([place]) MCH 22.1(L) 27.1 - 33.3 pg [facility] ([place]) MCHC 29.7(L) 32.3 - 35.7 g/dL [facility] ([place]) RDW CV 16.2(H) 11.1 - 14.9 % [facility] ([place]) RDW SD 43.6 35.7 - 48.1 fL [facility] ([place]) NRBC abs 0.00 0.00 - 0.01 K/cumm [facility] ([place]) Blood 01/23/2025 1:25 PM CDT 01/23/2025 1:28 PM CDT Cr Patel MD LAB BLOOD ORDERABLES Final R esult JOSE OLIVA ([place]) 1 [facility] [place] [place] [address] * Comprehensive metabolic panel (01/23/2025 1:25 PM CDT) Pathologist [facility] Sodium 141 135 - 145 mmol/L Potassium, pl 4.0 3.3 - 4.9 mmol/L [facility] ([place]) Chloride 104 97 - 110 mmol/L [facility] ([place]) CO2 25 22 - 32 mmol/L [facility] ([place]) Anion gap 12 2 - 15 mmol/L [facility] ([place]) BUN 9 6 - 25 mg/dL [facility] ([place]) Creatinine 0.83 0.60 - 1.10 mg/dL [facility] ([place]) Glucose 114 70 - 199 mg/dL [facility] ([place]) Comment: Interpretive Data Fasting glucose >/= 126 mg/dl is diagnostic for diabetes. Fasting is defined as no caloric intake for at least 8 hours. Fasting glucose between 100 mg/dl to 125 mg/dl is diagnostic of prediabetes. In a patient with classic symptoms of hyperglycemia or hyperglycemic crisis, a random glucose >/= 200 mg/dl is diagnostic for diabetes. In the absence of unequivocal hyperglycemia, results should be confirmed by repeat testing. The classification and Diagnosis of Diabetes Diabetes Care 2021; 46: S19-S40. Current interpretive data was last revised 2022. Calcium 9.4 8.5 - 10.3 mg/dL [facility] ([place]) Bilirubin, total 0.4 0.1 - 1.2 mg/dL [facility] ([place]) Protein, pl 7.4 6.5 - 8.5 g/dL [facility] ([place]) Albumin 4.1 3.5 - 5.0 g/dL [facility] ([place]) Alk phos 94 40 - 130 Units/L [facility] ([place]) ALT 25 7 - 45 Units/L [facility] ([place]) AST 29 10 - 45 Units/L [facility] ([place]) Blood 01/23/2025 1:25 PM CDT 01/23/2025 1:28 PM CDT us Cr Patel MD LAB BLOOD ORDERABLES Final R esult [facility] ([place]) 1 [facility] Department [place] [address] from Last 3 Months Insurance [facility] MEDICAID [facility] IDPA IDPA Care Teams Cardiographer Relationship Specialty Start Date End Date Marissa Parrish MD PCP - General 06/18/17
--- OUTSIDE RECORDS SUMMARY | 2025-02-25 15:39 | XMS_ITS | Clinical Summary ---
Author Organization [facility] Address [address] [place] [address] Care Team Providers Care Dean Of Education Name Role Phone Marissa Parrish MD Primary [...] CDT - 01/23/2025 4:29 PM CDT Emergency [facility] Emergency Department [address] [place] [id number] Nausea (Primary Dx); Memory changes Discharge Disposition: Discharge to home or self care from Last 3 Months Immunizations Immunization Administration [...] on file Legal Sex Female 7:51 PM RATE EXAMINER Gender Identity Female 07/13/2022 4:13 PM CDT [...] risk series) 04/16/2021 03/19/2021, 02/26/2021 Influenza Vaccine (Season Ended) 2025 09/14/2020, 09/27/2019, 08/28/2017, Additional history exists HPV Vaccines Aged Out No longer eligi ble based on patient's age to complete this topic Procedures Procedure Name Priority Date/Time Associated Diagnosis [...] by Gerardo David M.D. CH: Report ID: [id number] Reading Location: [id number] Procedure Note Gerardo David Jr., MD - [...] Electronically signed by Gerardo David M.D. CH: CH Report ID: [id number] Reading Location: [id number] Kar MACIAS IMG XR PROCEDURES Final Resu lt * Influenza A/B, RSV, and COVID-19 PCR Nasopharyngeal (01/23/2025 1:25 PM CDT) Pathologist [facility] Emergency Department COVID-19 RNA Negative Negative Influenza A RNA Negative Negative [facility]) Influenza B RNA Negative Negative [facility] ([place]) RSV RNA Negative Negative [facility] ([place]) Comment: Interpretive data: Testing performed by [facility]. This test is performed using the [employer] Xpert Xpress CoV-2/Flu/RSV plus assay. This is a multiplex, real- time reverse transcriptase PCR assay intended for the qualitative detection of nucleic acid from SARS-CoV-2, influenza A, influenza B, and respiratory syncytial virus. This assay has been cleared by the [place] Food and Drug administration. The performance characteristics have been verified by the [facility]. Results must be considered in the clinical context, and a negative result does not rule out infection. Interpretive Data last revised 2023 Nasopharyngeal 01/23/2025 1: 25 PM CDT 01/23/2025 1:29 PM CDT Narrative [facility] ([place] - 01/23/2025 2:11 PM CDT Is the Patient experiencing symptoms consistent with COVID?->Yes Cr Patel MD LAB MICROBIOLOGY - GENERAL O RDERABLES Final Result [facility] 1 [facility] Department [place] [address] * eGFR (01/23/2025 1:25 PM CDT) Pathologist [facility] Emergency Department eGFR >90 >=60 mL/min/1. 73 m2 Comment: [...] MD LAB BLOOD ORDERABLES Final R esult [facility] ([place]) 1 [facility] Department [place] [address] * Differential, auto (01/23/2025 1:25 PM CDT) [...] Final R esult [facility] ([place]) 1 [facility] Department [place] [address] * (ABNORMAL) CBC with auto differential (01/23/2025 [...] ([place]) MCV 74.4(L) 81.3 - 96.4 fL [facility] ([place]) MCH 22.1(L) 27.1 - 33.3 pg [facility] ([place]) MCHC 29.7(L) 32.3 - 35.7 g/dL [facility]) RDW CV 16.2(H) 11.1 - 14.9 % [facility] RDW SD 43.6 35.7 - 48.1 fL [facility] ([place]) NRBC abs 0.00 0.00 - 0.01 K/cumm [facility] ([place]) Blood 01/23/2025 1:25 PM CDT 01/23/2025 1:28 PM CDT Cr Patel MD LAB BLOOD ORDERABLES Final R esult [facility] ([place]) 1 [facility] Department [place] [address] * Comprehensive metabolic panel (01/23/2025 1:25 PM CDT) Sodium 141 135 - 145 mmol/L Potassium, pl 4.0 3.3 - 4.9 mmol/L [facility] ([place]) Chloride 104 97 - 110 mmol/L [facility] ([place] CO2 25 22 - 32 mmol/L [facility] ([place]) Anion gap 12 2 - 15 mmol/L [facility] ([place]) BUN 9 6 - 25 mg/dL [facility] ([place]) Creatinine 0.83 0.60 - 1.10 mg/dL [facility] ([place] Glucose 114 70 - 199 mg/dL [facility] ([place]) Comment: Interpretive Data Fasting glucose [...] classification and Diagnosis of Diabetes Diabetes Care 202; 46: S19-S40. Current interpretive data was last [...] Final R esult [facility] ([place]) 1 [facility] Department [place] [address] from Last 3 Months Insurance [facility] MEDICAID [facility] IDPA [facility] IDPA IDPA Care Teams Dean Of Education Relationship Specialty Start Date End Date Marissa Parrish MD PCP - General 06/18/17
--- OUTSIDE RECORDS SUMMARY | 2025-02-25 15:40 | XMS_ITS ---
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 Name Role Phone Deepa Taylor Unavailable [phone] zzzzMigration, zzzzProvider Unavailable Unav ailable REASON FOR VISIT [facility] Encounters Encounter Location Date Provider Diagnosis [facility] [address] [facility] [place] [address] 09/02/2023 zzzzProvider zzzzMigration Plan Of Treatment No Information Progress Notes * Venkat RAINESOB: [birth year] (34 yo F)Acc No.[id number]:09/02/2023 Patient: Reba MENDOZAhael :1990 A ge:32 Y S ex:Female Address:[address] [place] [address], [address] Subjective: * Chief Complaints: * E MR-Chris * Medical History: * Surgical History: * Hospitalization/Major Diagno stic Procedure: * Medications: Objective: * Vitals: * Physical Examination: Assessment: Plan: * Treatment: * Procedure Codes: * true * Date: Generated for Printi ng/Faeladiog/eTransmitting on: 0 02/25/2025 03:39 PM CDT
--- OUTSIDE RECORDS SUMMARY | 2025-02-25 15:40 | XMS_ITS | Clinical Summary ---
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 Gender Identity Not on file Sexual Orientation Not on file Last Filed Vital Signs Vital Sign Reading Time Taken Comments Blood Pressure 140/68 11/13/2018 5:45 PM EDITORIAL PROJECT MANAGER Pulse 98 11/13/2018 5:45 PM EDITORIAL PROJECT MANAGER Temperature 36.7 C (98 F) 11/13/2018 4:45 PM EDITORIAL PROJECT MANAGER Respiratory Rate 20 11/13/2018 4:45 PM EDITORIAL PROJECT MANAGER Oxygen Saturation 98% 11/13/2018 5:45 PM EDITORIAL PROJECT MANAGER Inhaled Oxygen Concentration - - Weight 131.5 kg (290 lb) 11/13/2018 4:45 PM EDITORIAL PROJECT MANAGER Height 160 cm (5' 3 ) 11/13/2018 4:45 PM EDITORIAL PROJECT MANAGER Body Mass Index 51.37 11/13/2018 4:45 PM EDITORIAL PROJECT MANAGER Plan of Treatment Not on file Insurance MEDICAID [employer] Care Teams Call Or Contact Centre Team Leader Relationship Specialty Start Date End Date Marissa Parrish MD PCP - General Family Medicine 11/13/18
--- OUTSIDE RECORDS SUMMARY | 2025-02-25 15:40 | XMS_ITS | Patient Health Record ---
Author Organization [facility] brie Address [address] [facility] [address] [place] [address] Care Team Providers Care Rubber Off Name Role Phone Deepa Taylor Unavailable [phone] Reason For Referral No Information Medications Medication SIG (Take, Route, Frequency, Duration) Notes Start Date End Date Status Plaquenil 200 MG take 1 tablet (200 mg) by oral route 2 times per day Oral 2 Active buPROPion HCl 450 mg take 1 tablet (450 mg) by oral route once daily swallowing whole. Do not crush, chew and/or divide. oral 1 *Pick strength-form from [employer] for eRX* Active Humira Pen 40 mg/0.8 [...] Insured Coverage Start Date Coverage End Date [facility] [address] ADELINA [place] [id number] Nubia Lazar Self - patient is the insured Medical (General) History Surgical History Surgery Date(Month/Year) cholecystectomy; 2020-07-15 C section; 2020-07-15 ACL repair; 2020-07-15 breast lump; 2020-07-15
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
--- OUTSIDE RECORDS SUMMARY | 2025-02-25 15:40 | XMS_ITS | Data Portability ---
Author Organization [facility] SYLVIEJanet Address [address] [place] [address] Assessment No assessment recorded. Plan of Treatment Reminders Order Date Submit Date Provider Last Modified By Organization Details Last Modified Time Details Appointments None recorded. Lab pap, IG + reflex HR HPV (16+18) 2016 017 L[facility], [address] [place], [place] [address]kaden Rocky, [facility] [address], [place], [address], 7 12:09:10 bacterial vaginosis + vaginitis panel, vaginal 2016 017 [facility], [address], [address], [place], [address], 7 07:14:53 CBC w/ auto diff 2016 017 [facility], [address], [address], [place], [address], 7 07:13:04 bacterial vaginosis + vaginitis panel, vaginal 2016 017 L[facility], [address] [facility], [address], [place], [address], 7 07:06:57 urinalysis , dipstick 2015 016 LIVE In-Office Order, Internal Use Only DO Not Attach Compendium DO Not Attach Compendium, Do Not Delete/merge, [id number] 6 18:24:47 Referral None recorded. Procedures None recorded. Surgeries None recorded. Imaging None recorded. Medication Orders Sprintec (28) 0.25 mg-0.035 mg tablet 2016 017 okolade [id number], [address], [place], [id number], 7 16:10:59 Patient TargetsNo targets recorded. Patient Instructions Encounter Date Encounter Id Patient Instructions Last Modified By Organization Details Last Modified Time 11/08/2016 [id number] preeclampsia: care instructions [email or web address] Not available 11/09/2016 10:19:03 Will schedule th e patient for IOL for mild pre-eclampsia. Patient was instructed to go labor and delivery for IOL immediately. [email or web address] Not available 11/08/2016 17:39:42 11/30/2016 [id number] [place] were removed. Patient will follow up for care in 6 weeks. Rx for breast pump was given to the patient as per patient request. [email or web address] Not available 11/30/2016 10:48:15 01/11/2017 [id number] edinburgh depression scale* LIVE Not available 01/11/2017 [...] disease. [email or web address] Not available 01/11/2017 15:31:10 01/13/2017 [id number] heavy menstrual periods: care instructions [email or web address] Not available 01/13/2017 18:08:59 CBC was ordered. Patient was started on OCPs 3 days prior. [email or web address] Not available 01/13/2017 17:48:48 09/05/2017 [id number] Safe sex counseling was done. Vaginitis panel [...] DO Not Attach Compendium, Do Not Delete/merge, [id number] 01/11/2017 15:09:57 11/08/20 16 11/08/2016 urina lysis , dipst ick Leukocytes Small Not Available In-Offi ce Order Internal Use Only DO Not Attach Compendium DO Not Attach Compendium, Do Not Delete/merge, [id number] 11/08/2016 16:32:56 11/08/20 16 11/08/2016 urina lysis , dipst ick Nitrite negati ve Not Available In-Office Order Internal Use Only DO Not Attach Compendium DO Not Attach Compendium, Do Not Delete/merge, [id number] 11/08/2016 16:32:56 11/08/20 16 11/08/2016 urina lysis , dipst ick Urobilinogen .2 Not Available In-Of fice Order Internal Use Only DO Not Attach Compendium DO Not Attach Compendium, Do Not Delete/merge, [id number] 11/08/2016 16:32:56 11/08/20 16 11/08/2016 urina lysis , dipst ick Protein 30 Not Available In-Office Order Internal Use Only DO Not Attach Compendium DO Not Attach Compendium, Do Not Delete/merge, [id number] 11/08/2016 16:32:56 11/08/20 16 11/08/2016 urina lysis , dipst ick pH 7.0 Not Available In-Office Order Internal Use Only DO Not Attach Compendium DO Not Attach Compendium, Do Not Delete/merge, [id number] 11/08/2016 16:32:56 11/08/20 16 11/08/2016 urina lysis , dipst ick Blood Negati ve Not Available In-Office Order Internal Use Only DO Not Attach Compendium DO Not Attach Compendium, Do Not Delete/merge, [id number] 11/08/2016 16:32:56 11/08/20 16 11/08/2016 urina lysis , dipst ick Specific [place] 1.020 Not Available In-Off ice Order Internal [...] DO Not Attach Compendium, Do Not Delete/merge, [id number] 11/01/2016 16:07:43 11/01/20 16 11/01/2016 urina lysis , dipst ick Urobilinogen 1 Not Available In-Of fice Order Internal Use Only DO Not Attach Compendium DO Not Attach Compendium, Do Not Delete/merge, [id number] 11/01/2016 16:07:43 11/01/20 16 11/01/2016 urina lysis , dipst ick Protein 30 Not Available In-Office Order Internal Use Only DO Not Attach Compendium DO Not Attach Compendium, Do Not Delete/merge, [id number] 11/01/2016 16:07:43 11/01/20 16 11/01/2016 urina lysis , dipst ick pH 7.0 Not Available In-Office Order Internal Use Only DO Not Attach Compendium DO Not Attach Compendium, Do Not Delete/merge, [id number] 11/01/2016 16:07:43 11/01/20 16 11/01/2016 urina lysis , dipst ick Blood Negati ve Not Available In-Office Order Internal Use Only DO Not Attach Compendium DO Not Attach Compendium, Do Not Delete/merge, [id number] 11/01/2016 16:07:43 11/01/20 16 11/01/2016 urina lysis , dipst ick Specific [place] 1.020 Not Available In-Off ice Order Internal Use Only DO Not Attach Compendium DO Not Attach Compendium, Do Not Delete/merge, [id number] 11/01/2016 16:07:43 11/01/20 16 11/01/2016 urina lysis , dipst ick Ketone Negati ve Not Available In-Office Order Internal Use Only DO Not Attach Compendium DO Not Attach Compendium, Do Not Delete/merge, [id number] 11/01/2016 16:07:43 11/01/20 16 11/01/2016 urina lysis , dipst ick Bilirubin Negati ve Not Available In-Office Order Internal Use Only DO Not Attach Compendium DO Not Attach Compendium, Do Not Delete/merge, [id number] 11/01/2016 16:07:43 11/01/20 16 11/01/2016 urina lysis , dipst ick Glucose Negati ve Not Available In-Office Order Internal Use Only DO Not Attach Compendium DO Not Attach Compendium, Do Not Delete/merge, [id number] 11/01/2016 16:07:43 11/01/20 16 11/01/2016 urina lysis , dipst ick Appearance Clear Not Available In-Offi ce Order Internal Use Only DO Not Attach Compendium DO Not Attach Compendium, Do Not Delete/merge, [id number] 11/01/2016 16:07:43 11/01/20 16 11/01/2016 urina lysis , dipst ick Color Yellow Not Available In-Office Order Internal Use Only DO Not Attach Compendium DO Not Attach Compendium, Do Not Delete/merge, [id number] 11/01/2016 16:07:43 10/25/20 16 10/25/2016 urina lysis [...] 10/25/2016 urina lysis , dipst ick Specific [place] 1.015 Not Available In-Off ice Order Internal [...] DO Not Attach Compendium, Do Not Delete/merge, [id number] 10/18/2016 14:25:07 10/18/20 16 10/18/2016 urina lysis , dipst ick Urobilinogen .2 Not Available In-Of fice Order Internal Use Only DO Not Attach Compendium DO Not Attach Compendium, Do Not Delete/merge, [id number] 10/18/2016 14:25:07 10/18/20 16 10/18/2016 urina lysis , dipst ick Protein Negati ve Not Available In-Office Order Internal Use Only DO Not Attach Compendium DO Not Attach Compendium, Do Not Delete/merge, [id number] 10/18/2016 14:25:07 10/18/20 16 10/18/2016 urina lysis , dipst ick pH 7.0 Not Available In-Office Order Internal Use Only DO Not Attach Compendium DO Not Attach Compendium, Do Not Delete/merge, [id number] 10/18/2016 14:25:07 10/18/20 16 10/18/2016 urina lysis , dipst ick Blood Small Not Available In-Office Order Internal Use Only DO Not Attach Compendium DO Not Attach Compendium, Do Not Delete/merge, 10/18/2016 14:25:07 10/18/20 16 10/18/2016 urina lysis , dipst ick Specific [place] 1.020 Not Available In-Off ice Order Internal Use Only DO Not Attach Compendium DO Not Attach Compendium, Do Not Delete/merge, [id number] 10/18/2016 14:25:07 10/18/20 16 10/18/2016 urina lysis , dipst ick Ketone Negati ve Not Available In-Office Order Internal Use Only DO Not Attach Compendium DO Not Attach Compendium, Do Not Delete/merge, [id number] 10/18/2016 14:25:07 10/18/20 16 10/18/2016 urina lysis , dipst ick Bilirubin Negati ve Not Available In-Office Order Internal Use Only DO Not Attach Compendium DO Not Attach Compendium, Do Not Delete/merge, [id number] 10/18/2016 14:25:07 10/18/20 16 10/18/2016 urina lysis , dipst ick Glucose Negati ve Not Available In-Office Order Internal Use Only DO Not Attach Compendium DO Not Attach Compendium, Do Not Delete/merge, [id number] 10/18/2016 14:25:07 10/10/20 16 10/10/2016 urina lysis , dipst ick Leukocytes Trace Not Available In-Offi ce Order Internal Use Only DO Not Attach Compendium DO Not Attach Compendium, Do Not Delete/merge, [id number] 10/10/2016 15:52:18 10/10/20 16 10/10/2016 urina lysis , dipst ick Nitrite negati ve Not Available In-Office Order Internal Use Only DO Not Attach Compendium DO Not Attach Compendium, Do Not Delete/merge, [id number] 10/10/2016 15:52:18 10/10/20 16 10/10/2016 urina lysis , dipst ick Urobilinogen .2 Not Available In-Of fice Order Internal Use Only DO Not Attach Compendium DO Not Attach Compendium, Do Not Delete/merge, [id number] 10/10/2016 15:52:18 10/10/20 16 10/10/2016 urina lysis , dipst ick Protein Trace Not Available In-Office Order Internal Use Only DO Not Attach Compendium DO Not Attach Compendium, Do Not Delete/merge, [id number] 10/10/2016 15:52:18 10/10/20 16 10/10/2016 urina lysis , dipst ick pH 7.0 Not Available In-Office Order Internal Use Only DO Not Attach Compendium DO Not Attach Compendium, Do Not Delete/merge, [id number] 10/10/2016 15:52:18 10/10/20 16 10/10/2016 urina lysis , dipst ick Blood Large Not Available In-Office Order Internal Use Only DO Not Attach Compendium DO Not Attach Compendium, Do Not Delete/merge, [id number] 10/10/2016 15:52:18 10/10/20 16 10/10/2016 urina lysis , dipst ick Specific [place] 1.020 Not Available In-Off ice Order Internal Use Only DO Not Attach Compendium DO Not Attach Compendium, Do Not Delete/merge, [id number] 10/10/2016 15:52:18 10/10/20 16 10/10/2016 urina lysis , dipst ick Ketone Negati ve Not Available In-Office Order Internal Use Only DO Not Attach Compendium DO Not Attach Compendium, Do Not Delete/merge, [id number] 10/10/2016 15:52:18 10/10/20 16 10/10/2016 urina lysis , dipst ick Bilirubin Negati ve Not Available In-Office Order Internal Use Only DO Not Attach Compendium DO Not Attach Compendium, Do Not Delete/merge, [id number] 10/10/2016 15:52:18 10/10/20 16 10/10/2016 urina lysis , dipst ick Glucose Negati ve Not Available In-Office Order Internal Use Only DO Not Attach Compendium DO Not Attach Compendium, Do Not Delete/merge, [id number] 10/10/2016 15:52:18 10/10/20 16 10/12/2016 bacte rial vagin osis + vagin itis panel , vagin al trich vag by ZULMA NEGATI VE negati ve Not Available [facility] ([facility]) [address] [place] [address], [id number], 10/13/2016 07:14:20 10/10/20 16 10/12/2016 bacte rial vagin osis + vagin itis panel , vagin al chlamydia trachomatis, ZULMA NEGATI VE negati ve Not Available [facility] ([facility]) [address] [place], [address], 10/13/2016 07:14:20 10/10/20 16 10/12/2016 bacte rial vagin osis + vagin itis panel , vagin al neisseria gonorrhoeae, ZULMA NEGATI VE negati ve Not Available [facility] ([facility]) [address] [place], [address], 10/13/2016 07:14:20 10/10/20 16 10/13/2016 bacte rial vagin osis + vagin itis panel , vagin al atopobium vaginae LOW - 0 score Not Available [facility] ([facility]) [address] [place], [address], 10/13/2016 07:14:20 10/10/20 16 10/13/2016 bacte rial vagin osis + vagin itis panel , vagin al bvab 2 LOW - 0 score Not Available [facility] ([facility]) [address] [place], [address], 10/13/2016 07:14:20 10/10/20 16 10/13/2016 bacte rial [...] IS NOT NECES CARSON. Not Available [facility] ([facility]) [address] [facility], [place], [address], 10/13/2016 07:14:20 10/10/20 16 10/13/2016 bacte rial vagin osis + vagin itis panel , vagin al yaakov albicans, ZULMA NEGATI VE negati ve Not Available [facility] ([facility]) [address] [facility], [place], [address], 10/13/2016 07:14:20 10/10/20 16 10/13/2016 bacte rial [...] IS NOT NECES CARSON. Not Available [facility] ([facility]) [address] [facility], [place], [address], 10/13/2016 07:14:20 10/10/20 16 10/12/2016 cultu re, [...] N IS NOTED . Not Available [facility] ([facility]) [address] [facility], [place], [address], 10/13/2016 07:14:20 10/18/20 16 10/19/2016 drug scree n, urine amphetamines , urine NEGATI VE NG/mL cutoff =1000 AMPHE TAMIN E TEST INCLU SERGIO AMPHE TAMIN E AND METHA MPHET AMINE . Not Available [facility] ([facility]) [address] [place] [address], [address], 10/22/2016 07:14:13 10/18/20 16 10/19/2016 drug scree n, urine barbiturates NEGATI VE NG/mL cutoff =200 Not Available [facility] ([facility]) [address] [place] [address], [id number], 10/22/2016 07:14:13 10/18/20 16 10/19/2016 drug scree n, urine benzodiazepi galo NEGATI VE NG/mL cutoff =200 Not Available [facility] ([facility]) [address] [place] [address], [address], 10/22/2016 07:14:13 10/18/20 16 10/19/2016 drug scree n, urine cannabinoid SEE FINAL RESULT S NG/mL cutoff =50 Not Available [facility] ([facility]) [address] [place] [address], [id number], 10/22/2016 07:14:13 10/18/20 16 10/19/2016 drug scree n, urine cocaine (metab.) NEGATI VE NG/mL cutoff =300 Not Available [facility] ([facility]) [address] [place], [address], 10/22/2016 07:14:13 10/18/20 16 10/19/2016 drug scree n, urine methaqualone NEGATI VE NG/mL cutoff =300 Not Available [facility] ([facility]) [address] [place] [address], [address], 10/22/2016 07:14:13 10/18/20 16 10/19/2016 drug scree n, urine opiates NEGATI VE NG/mL cutoff =2000 OPIAT E TEST INCLU SERGIO CODEI NE AND MORPH INE ONLY. Not Available [facility] ([facility]) [address] [place] [address], [address], 10/22/2016 07:14:13 10/18/20 16 10/19/2016 drug scree n, urine phencyclidin e NEGATI VE NG/mL cutoff =25 Not Available [facility] ([facility]) [address] [place] [address], [address], 10/22/2016 07:14:13 10/18/20 16 10/19/2016 drug scree n, urine methadone screen, urine NEGATI VE NG/mL cutoff =300 Not Available [facility] ([facility]) [address] [place] [address], [address], 10/22/2016 07:14:13 10/18/20 16 10/19/2016 drug scree n, urine propoxyphene , urine NEGATI VE NG/mL cutoff =300 Not Available [facility] ([facility]) [address] [place] [address], [address], 10/22/2016 07:14:13 10/18/20 16 10/21/2016 drug scree n, urine cannabinoid POSITI VE cutoff =50 abnormal Not Available [facility] ([facility]) [address] [place] [address], [address], 10/22/2016 07:14:13 10/18/20 16 10/21/2016 drug scree n, urine carboxy THC GC/MS conf 171 NG/mL cutoff =15 Not Available [facility] ([facility]) [address] [place] [address], [address], 10/22/2016 07:14:13 10/18/20 16 10/19/2016 hsv (1+2) [...] RAMONA TO HSV-1 . Not Available [facility] ([facility]) [address] [facility], [place], [address], 10/22/2016 07:14:13 10/18/20 16 10/19/2016 hsv (1+2) [...] RAMONA TO HSV-2 . Not Available [facility] ([facility]) [address] [facility], [place], [address], 10/22/2016 07:14:13 10/18/20 16 10/19/2016 varic brennen- [...] STAGE OF DISEA SE. Not Available [facility] ([facility]) [address] [facility], [place], [address], 10/22/2016 07:14:14 11/01/20 16 11/02/2016 CBC w/ auto diff WBC 8.3 x10e3 /uL 3.4-10 .8 Not Available [facility] ([facility]) [address] [place], [address], 11/02/2016 07:14:39 11/01/20 16 11/02/2016 CBC w/ auto diff RBC 4.32 x10e6 /uL 3.77-5 .28 Not Available [facility] ([facility]) [address] [place], [address], 11/02/2016 07:14:39 11/01/20 16 11/02/2016 CBC w/ auto diff hemoglobin 11.1 g/dL 11.1-1 5.9 Not Available [facility] ([facility]) [address] [place], [address], 11/02/2016 07:14:39 11/01/20 16 11/02/2016 CBC w/ auto diff hematocrit 35.2 % 34.0-4 6.6 Not Available [facility] ([facility]) [address] [place] [address], [address], 11/02/2016 07:14:39 11/01/20 16 11/02/2016 CBC w/ auto diff MCV 82 fL 79-97 Not Available [facility] ([facility]) [address] [place], [address], 11/02/2016 07:14:39 11/01/20 16 11/02/2016 CBC w/ auto diff MCH 25.7 pg 26.6-3 3.0 below low normal Not Available [facility] ([facility]) [address] [place], [address], 11/02/2016 07:14:39 11/01/20 16 11/02/2016 CBC w/ auto diff MCHC 31.5 g/dL 31.5-3 5.7 Not Available [facility] ([facility]) [address] [place], [address], 11/02/2016 07:14:39 11/01/20 16 11/02/2016 CBC w/ auto diff RDW 15.3 % 12.3-1 5.4 Not Available [facility] ([facility]) [address] [place], [address], 11/02/2016 07:14:39 11/01/20 16 11/02/2016 CBC w/ auto diff platelets 245 x10e3 /uL 150-37 9 Not Available [facility] ([facility]) [address] [place], [address], 11/02/2016 07:14:39 11/01/20 16 11/02/2016 CBC w/ auto diff neutrophils 78 % Not Available [facility] ([facility]) [address] [place], [address], 11/02/2016 07:14:39 11/01/20 16 11/02/2016 CBC w/ auto diff lymphs 14 % Not Available [facility] ([facility]) [address] [place] [address], [address], 11/02/2016 07:14:39 11/01/20 16 11/02/2016 CBC w/ auto diff monocytes 7 % Not Available [facility] ([facility]) [address] [place] [address], [address], 11/02/2016 07:14:39 11/01/20 16 11/02/2016 CBC w/ auto diff eos 1 % Not Available [facility] ([facility]) [address] [place] [address], [address], 11/02/2016 07:14:39 11/01/20 16 11/02/2016 CBC w/ auto diff basos 0 % Not Available [facility] ([facility]) [address] [place] [address], [address], 11/02/2016 07:14:39 11/01/20 16 11/02/2016 CBC w/ auto diff 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 0 Not Available [facility] ([facility]) [address] [facility], [place], [address], 11/02/2016 07:14:39 11/01/20 16 11/02/2016 CBC w/ auto diff lymphs (absolute) 1.2 x10e3 /uL 0.7-3. 1 Not Available [facility] ([facility]) [address] [place], [address], 11/02/2016 07:14:39 11/01/20 16 11/02/2016 CBC w/ auto diff monocytes(ab solute) 0.6 x10e3 /uL 0.1-0. 9 Not Available [facility] ([facility]) [address] [place], [address], 11/02/2016 07:14:39 11/01/20 16 11/02/2016 CBC w/ auto diff eos (absolute) 0.1 x10e3 /uL 0.0-0. 4 Not Available [facility] ([facility]) [address] [facility], [place], [address], 11/02/2016 07:14:39 11/01/20 16 11/02/2016 CBC w/ auto diff baso (absolute) 0.0 x10e3 /uL 0.0-0. 2 Not Available [facility] ([facility]) [address] [place], [address], 11/02/2016 07:14:39 11/01/20 16 11/02/2016 CBC w/ auto diff immature granulocytes 0 % Not Available [facility] ([facility]) [address] [place], [address], 11/02/2016 07:14:39 11/01/20 16 11/02/2016 CBC w/ auto diff immature grans (abs) 0.0 x10e3 /uL 0.0-0. 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 Not Available [facility] ([facility]) [address] [facility] [place], [address], 11/02/2016 07:14:39 11/01/20 16 11/02/2016 CMP, serum or plasm a glucose, serum 114 mg/dL 65-99 above high normal Not Available [facility] ([facility]) [address] [facility] [place], [address], 11/02/2016 07:14:39 11/01/20 16 11/02/2016 CMP, serum or plasm a BUN 4 mg/dL 6-20 below low normal Not Available [facility] ([facility]) [address] [facility] [place], [address], 11/02/2016 07:14:39 11/01/20 16 11/02/2016 CMP, serum or plasm a creatinine, serum 0.42 mg/dL 0.57-1 .00 below low normal Not Available [facility] ([facility]) [address] [facility] [place], [address], 11/02/2016 07:14:39 11/01/20 16 11/02/2016 CMP, serum or plasm a eGFR if nonafricn AM 142 mL/mi n/1.7 3 >59 Not Available [facility] ([facility]) [address] [facility] [place], [address], 11/02/2016 07:14:39 11/01/20 16 11/02/2016 CMP, serum or plasm a eGFR if africn AM 164 mL/mi n/1.7 3 >59 Not Available [facility] ([facility]) [address] [facility], [place], [address], 11/02/2016 07:14:39 11/01/20 16 11/02/2016 CMP, serum or plasm a BUN/creatini ne ratio 10 8-20 Not Available [facility] ([facility]) [address] [facility], [place], [address], 11/02/2016 07:14:39 11/01/20 16 11/02/2016 CMP, serum or plasm a sodium, serum 139 mmol/ L 134-14 4 PLE ASE NOTE REFER ENCE INTER ARELI FOY E Not Available [facility] ([facility]) [address] [facility], [place], [address], 11/02/2016 07:14:39 11/01/20 16 11/02/2016 CMP, serum or plasm a potassium, serum 4.8 mmol/ L 3.5-5. 2 Not Available [facility] ([facility]) [address] [facility], [place], [address], 11/02/2016 07:14:39 11/01/20 16 11/02/2016 CMP, serum or plasm a chloride, serum 100 mmol/ L 96-106 PLE ASE NOTE REFER ENCE INTER ARELI FOY E Not Available [facility] ([facility]) [address] [facility], [place], [address], 11/02/2016 07:14:39 11/01/20 16 11/02/2016 CMP, serum or plasm a carbon dioxide, total 22 mmol/ L 18-29 Not Available [facility] ([facility]) [address] [facility], [place], [address], 11/02/2016 07:14:39 11/01/20 16 11/02/2016 CMP, serum or plasm a calcium, serum 8.9 mg/dL 8.7-10 .2 Not Available [facility] ([facility]) [address] [place], [address], 11/02/2016 07:14:39 11/01/20 16 11/02/2016 CMP, serum or plasm a protein, total, serum 6.1 g/dL 6.0-8. 5 Not Available [facility] ([facility]) [address] [place], [address], 11/02/2016 07:14:39 11/01/20 16 11/02/2016 CMP, serum or plasm a albumin, serum 3.4 g/dL 3.5-5. 5 below low normal Not Available [facility] ([facility]) [address] [place], [address], 11/02/2016 07:14:39 11/01/20 16 11/02/2016 CMP, serum or plasm a globulin, total 2.7 g/dL 1.5-4. 5 Not Available [facility] ([facility]) [address] [place], [address], 11/02/2016 07:14:39 11/01/20 16 11/02/2016 CMP, serum or plasm a A/G ratio 1.3 1.1-2. 5 Not Available [facility] ([facility]) [address] [place], [address], 11/02/2016 07:14:39 11/01/20 16 11/02/2016 CMP, serum or plasm a bilirubin, total 0.2 mg/dL 0.0-1. 2 Not Available [facility] ([facility]) [address] [place] [address], [address], 11/02/2016 07:14:39 11/01/20 16 11/02/2016 CMP, serum or plasm a alkaline phosphatase, S 177 IU/L 39-117 above high normal Not Available [facility] ([facility]) [address] [place], [address], 11/02/2016 07:14:39 11/01/20 16 11/02/2016 CMP, serum or plasm a AST (SGOT) 8 IU/L 0-40 Not Available [facility] ([facility]) [address] [place], [address], 11/02/2016 07:14:39 11/01/20 16 11/02/2016 CMP, serum or plasm a ALT (SGPT) 6 IU/L 0-32 Not Available [facility] ([facility]) [address] [place], [address], 11/02/2016 07:14:39 11/01/20 16 11/02/2016 uric acid, serum or plasm a uric acid, serum 4.5 mg/dL 2.5-7. 1 THERA LAN NASSAR T FOR GOUT PATIE NTS: <6.0 Not Available [facility] ([facility]) [address] [place], [address], 11/02/2016 07:14:40 11/01/20 16 11/02/2016 ldh, serum or plasm a LDH 126 IU/L 119-22 6 Not Available [facility] ([facility]) [address] [place], [address], 11/02/2016 07:14:40 01/12/20 17 01/13/2017 bacte rial vagin osis + vagin itis panel , vagin al trich vag by ZULMA NEGATI VE negati ve Not Available [facility] ([facility]) [address] [place], [address], 01/16/2017 07:06:57 01/12/20 17 01/13/2017 bacte rial vagin osis + vagin itis panel , vagin al chlamydia trachomatis, ZULMA NEGATI VE negati ve Not Available [facility] ([facility]) [address] [place], [address], 01/16/2017 07:06:57 01/12/20 17 01/13/2017 bacte rial vagin osis + vagin itis panel , vagin al neisseria gonorrhoeae, ZULMA NEGATI VE negati ve Not Available [facility] ([facility]) [address] [place], [address], 01/16/2017 07:06:57 01/12/20 17 01/14/2017 bacte rial vagin osis + vagin itis panel , vagin al yaakov albicans, ZULMA NEGATI VE negati ve Not Available [facility] ([facility]) [address] [facility], [place], [address], 01/16/2017 07:06:57 01/12/20 17 01/14/2017 bacte rial vagin osis + vagin itis panel , vagin al yaakov glabrata, ZULMA NEGATI VE negati ve THIS TEST WAS CLEMENCIA WHITE AND ITS PERFO RMANC E LESLI CTERI STICS DETER MINED BY [facility]. IT HAS NOT BEEN CLEAR ED OR APPRO GIBSON BY THE FOOD AND DRUG ADMIN ISTRA TION. THE FDA HAS DETER MINED THAT SUCH CLEAR ANCE OR APPRO ARELI IS NOT NECES CARSON. Not Available [facility] ([facility]) [address] [place], [address], 01/16/2017 07:06:57 01/12/20 17 01/15/2017 bacte rial vagin osis + vagin itis panel , vagin al atopobium vaginae LOW - 0 score Not Available [facility] ([facility]) [address] [place], [address], 01/16/2017 07:06:57 01/12/20 17 01/15/2017 bacte rial vagin osis + vagin itis panel , vagin al bvab 2 LOW - 0 score Not Available [facility] ([facility]) [address] [place], [address], 01/16/2017 07:06:57 01/12/20 17 01/15/2017 bacte rial [...] IS NOT NECES CARSON. Not Available [facility] ([facility]) [address] [place], [address], 01/16/2017 07:06:57 01/14/20 17 01/14/2017 CBC w/ auto diff WBC 7.9 x10e3 /uL 3.4-10 .8 Not Available [facility] ([facility]) [address] [place], [address], 01/14/2017 07:13:04 01/14/20 17 01/14/2017 CBC w/ auto diff RBC 4.33 x10e6 /uL 3.77-5 .28 Not Available [facility] ([facility]) [address] [place], [address], 01/14/2017 07:13:04 01/14/20 17 01/14/2017 CBC w/ auto diff hemoglobin 10.6 g/dL 11.1-1 5.9 below low normal Not Available [facility] ([facility]) [address] [place], [address], 01/14/2017 07:13:04 01/14/20 17 01/14/2017 CBC w/ auto diff hematocrit 33.5 % 34.0-4 6.6 below low normal Not Available [facility] ([facility]) [address] [place], [address], 01/14/2017 07:13:04 01/14/20 17 01/14/2017 CBC w/ auto diff MCV 77 fL 79-97 below low normal Not Available [facility] ([facility]) [address] [place], [address], 01/14/2017 07:13:04 01/14/20 17 01/14/2017 CBC w/ auto diff MCH 24.5 pg 26.6-3 3.0 below low normal Not Available [facility] ([facility]) [address] [place], [address], 01/14/2017 07:13:04 01/14/20 17 01/14/2017 CBC w/ auto diff MCHC 31.6 g/dL 31.5-3 5.7 Not Available [facility] ([facility]) [address] [place], [address], 01/14/2017 07:13:04 01/14/20 17 01/14/2017 CBC w/ auto diff RDW 15.9 % 12.3-1 5.4 above high normal Not Available [facility] ([facility]) [address] [place], [address], 01/14/2017 07:13:04 01/14/20 17 01/14/2017 CBC w/ auto diff platelets 331 x10e3 /uL 150-37 9 Not Available [facility] ([facility]) [address] [place], [address], 01/14/2017 07:13:04 01/14/20 17 01/14/2017 CBC w/ auto diff neutrophils 69 % Not Available [facility] ([facility]) [address] [facility], [place], [address], 01/14/2017 07:13:04 01/14/20 17 01/14/2017 CBC w/ auto diff lymphs 23 % Not Available [facility] ([facility]) [address] [place], [address], 01/14/2017 07:13:04 01/14/20 17 01/14/2017 CBC w/ auto diff monocytes 7 % Not Available [facility] ([facility]) [address] [place], [address], 01/14/2017 07:13:04 01/14/20 17 01/14/2017 CBC w/ auto diff eos 1 % Not Available [facility] ([facility]) [address] [place], [address], 01/14/2017 07:13:04 01/14/20 17 01/14/2017 CBC w/ auto diff basos 0 % Not Available [facility] ([facility]) [address] [place], [address], 01/14/2017 07:13:04 01/14/20 17 01/14/2017 CBC w/ auto diff 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 0 Not Available [facility] ([facility]) [address] [place], [address], 01/14/2017 07:13:04 01/14/20 17 01/14/2017 CBC w/ auto diff lymphs (absolute) 1.8 x10e3 /uL 0.7-3. 1 Not Available [facility] ([facility]) [address] [place], [address], 01/14/2017 07:13:04 01/14/20 17 01/14/2017 CBC w/ auto diff monocytes(ab solute) 0.5 x10e3 /uL 0.1-0. 9 Not Available [facility] ([facility]) [address] [facility], [place], [address], 01/14/2017 07:13:04 01/14/20 17 01/14/2017 CBC w/ auto diff eos (absolute) 0.1 x10e3 /uL 0.0-0. 4 Not Available [facility] ([facility]) [address] [facility], [place], [address], 01/14/2017 07:13:04 01/14/20 17 01/14/2017 CBC w/ auto diff baso (absolute) 0.0 x10e3 /uL 0.0-0. 2 Not Available [facility] ([facility]) [address] [place], [address], 01/14/2017 07:13:04 01/14/20 17 01/14/2017 CBC w/ auto diff immature granulocytes 0 % Not Available [facility] ([facility]) [address] [place], [address], 01/14/2017 07:13:04 01/14/20 17 01/14/2017 CBC w/ auto diff immature grans (abs) 0.0 x10e3 /uL 0.0-0. 1 Not Available [facility] ([facility]) [address] [place], [address], 01/14/2017 07:13:04 01/14/20 17 01/14/2017 CBC w/ auto diff NRBC METER AND SERVICE LINE INSPECTOR Not Available [facility] ([facility]) [address] [place], [address], 01/14/2017 07:13:04 01/14/20 17 01/14/2017 CBC w/ auto diff hematology comments: METER AND SERVICE LINE INSPECTOR Not Available [facility] ([facility]) [address] [facility], [place], [address], 01/14/2017 07:13:04 09/05/20 17 09/07/2017 bacte rial vagin osis + vagin itis panel , vagin al trich vag by ZULMA Negati ve negati ve Not Available [facility] ([facility]) [address] [facility], [place], [address], 09/08/2017 07:14:52 09/05/20 17 09/07/2017 bacte rial vagin osis + vagin itis panel , vagin al chlamydia trachomatis, ZULMA Negati ve negati ve Not Available [facility] ([facility]) [address] [facility], [place], [address], 09/08/2017 07:14:52 09/05/20 17 09/07/2017 bacte rial vagin osis + vagin itis panel , vagin al neisseria gonorrhoeae, ZULMA Negati ve negati ve Not Available [facility] ([facility]) [address] [facility], [place], [address], 09/08/2017 07:14:52 09/05/2009/08/2017 bacte rial vagin osis + vagin itis panel , vagin al atopobium vaginae Low - 0 score Not Available [facility] ([facility]) [address] [facility], [place], [address], 09/08/2017 07:14:52 09/05/2009/08/2017 bacte rial vagin osis + vagin itis panel , vagin al bvab 2 Low - 0 score Not Available [facility] ([facility]) [address] [place], [address], 09/08/2017 07:14:52 09/05/20 17 09/08/2017 bacte rial [...] e lesli cteri stics deter mined by [facility]. It has not been clear ed or appro gibson by the Food and Drug Admin istra tion. The FDA has deter mined that such clear ance or appro areli is not neces carson. Not Available [facility] ([facility]) [address] [facility], [place], [address], 09/08/2017 07:14:52 09/05/2009/08/2017 bacte rial vagin osis + vagin itis panel , vagin al yaakov albicans, ZULMA Negati ve negati ve Not Available [facility] ([facility]) [address] [place], [address], 09/08/2017 07:14:52 09/05/20 17 09/08/2017 bacte rial vagin osis + vagin itis panel , vagin al yaakov glabrata, ZULMA Negati ve negati ve This test was devel oped and its perfo rmanc e lesli cteri stics deter mined by [facility]. It has not been clear ed or appro gibson by the Food and Drug Admin istra tion. The FDA has deter mined that such clear ance or appro areli is not neces carson. Not Available [facility] ([facility]) [address] [facility], [place], [address], 09/08/2017 07:14:52 09/05/20 17 09/07/2017 pap, IG + refle x HR HPV (16+1 8) diagnosis: Commen t NEGAT JUAN C FOR INTRA EPITH ELIAL LESIO N AND SHAKIR LIU . Not Available [facility] ([facility]) [address] [facility], [place], [address], 09/09/2017 07:12:27 09/05/20 17 09/07/2017 pap, IG + refle x HR HPV (16+1 8) specimen adequacy: Kisha telles Satis facto ry for evalu ation . Endoc ervic al and/o r squam ous metap lasti c cells (endo cervi marla compo nent) are prese nt. Not Available [facility] ([facility]) [address] [facility], [place], [address], 09/09/2017 07:12:27 09/05/20 17 09/07/2017 pap, IG + refle x HR HPV (16+1 8) clinician provided ICD10: Kisha telles Z01.4 19 Not Available [facility] ([facility]) [address] [place], [address], 09/09/2017 07:12:27 09/05/20 17 09/07/2017 pap, IG + refle x HR HPV (16+1 8) performed by: Torres Gates (ASCP ) Not Available [facility] ([facility]) [address] [facility], [place], [address], 09/09/2017 07:12:27 09/05/20 17 09/07/2017 pap, IG + refle x HR HPV (16+1 8) . . Not Available [facility] ([facility]) [address] [place], [address], 09/09/2017 07:12:27 09/05/20 17 09/07/2017 pap, IG + refle x HR HPV (16+1 8) note: Kisha telles The Pap smear is a scree stefani test desdinesh ramirez to aid in the detec tion of dusty ligna nt and maldinesh quick condi tions of the uteri ne cervi x. It is not a diagn ostic proce dure and shoul d not be used as the sole means of detec ting cervi marla cance r. Both false -posi tive and false -nega tive repor ts do occur . Not Available [facility] ([facility]) [address] [place], [address], 09/09/2017 07:12:27 09/05/20 17 09/07/2017 pap, IG + refle x HR HPV (16+1 8) test methodology: Commen t This liqui d based ThinP rep(R ) pap test was scree ashley with the use of an image guide nader herzog. Not Available [facility] ([facility]) [address] [facility], [place], [address], 09/09/2017 07:12:27 09/05/20 17 09/08/2017 pap, IG + refle x HR HPV (16+1 8) HPV, high-risk Negati ve negati ve This high- risk HPV test detec ts thirt een high- risk types (16/1 8/31/ 33/35 /39/4 5/51/ 52/56 /58/5 9/68) witho ut diffe renti ation . Not Available [facility] ([facility]) [address] [place], [address], 09/09/2017 07:12:27 10/21/20 16 10/21/2016 US, obste tric, bioph ysica l profi le No observ ation record ed. [address] [place], [address], 10/24/2016 10:34:08 10/21/20 16 10/21/2016 US, obste tric, bioph ysica l profi le No observ ation record ed. [address] [place], [address], 10/24/2016 10:34:09 10/24/20 16 10/21/2016 US, obste tric, bioph ysica l profi le No observ ation record ed. [address] [place], [address], 10/25/2016 09:09:33 10/25/20 16 10/24/2016 US, obste tric, bioph ysica l profi le No observ ation record ed. [address] [place], [address], 10/26/2016 10:03:21 10/25/20 16 10/24/2016 US, obste tric, bioph ysica l profi le No observ ation record ed. [address] [place], [address], 10/26/2016 02:34:28 10/28/20 16 10/27/2016 US, obste tric, bioph ysica l profi le No observ ation record ed. [address] [place], [address], 10/29/2016 18:44:02 10/31/20 16 10/27/2016 US, obste tric, follo w-up No observ ation record ed. [address] [place], [address], 10/31/2016 18:48:37 11/01/20 16 10/31/2016 US, obste tric, bioph ysica l profi le No observ ation record ed. [address] [place], [address], 11/01/2016 16:54:00 11/03/20 16 11/03/2016 US, obste tric, bioph ysica l profi le + non-s tress test No observ ation record ed. [address] [place], [address], 11/04/2016 19:56:34 11/08/20 16 11/08/2016 US, obste tric, follo w-up No observ ation record ed. [email or web address] [address] [place], [address], 11/16/2016 09:17:14 11/08/20 16 11/08/2016 US, obste tric, bioph ysica l profi le + non-s tress test No observ ation record ed. [address] [place], [address], 11/09/2016 09:04:59 11/10/20 16 11/10/2016 US, obste tric, bioph ysica l profi le + non-s tress test No observ ation record ed. [address] [place], [address], 11/11/2016 08:26:27 11/10/20 16 11/10/2016 US, obste tric, bioph ysica l profi le No observ ation record ed. [address] [place], [address], 11/11/2016 08:26:28 11/15/19 17 11/10/2016 US, obste tric, bioph ysica l profi le + non-s tress test No observ ation record ed. [address] [place], [address], 11/16/2016 06:25:51 11/16/19 17 11/15/2016 US, obste tric, bioph ysica l profi le + non-s tress test No observ ation record ed. [address] [place], [address], 11/18/2016 13:57:20 11/17/19 17 11/17/2016 US, obste tric, bioph ysica l profi le + non-s tress test No observ ation record ed. [address] [place], [address], 11/18/2016 13:57:21 Result Notes None recorded. Problems Name Problem SNOMED Code Status Onset Date Resolution Date Notes Provider Name and Address Organization Details Recorded Time 63897442 Completed 201511/30/2016 Evelyn Weber MA null, [place] - [facility] 7 10:22:03 Cannabis abuse 59685191 Active 2015 Sera Lynn MD Attn: Steven motta,[address] [place], [address], [facility] 6 09:43:40 Recommend ation refused Completed 2015 PATIENT REFUSE TO GET 24 HOUR URINE DONE , SHE SSID SHE HAS DONE THEM BEFORE AND DOES NOT WANT TO DO ANYMORE, I TOLD PT HOW IMPORTSNT IT IS TO COMPLETE HER PIH LABS, SO THAT SHE CAN BE EVALUATED PROPERLY. PT STILL REFUSED Merline Jinnyerinnvane canales null, [place] - [facility] 7 15:20:51 Recommend ation refused Active 2015 PATIENT REFUSE TO GET 24 HOUR URINE DONE , SHE SSID SHE HAS DONE THEM BEFORE AND DOES NOT WANT TO DO ANYMORE, I TOLD PT HOW IMPORTSNT IT IS TO COMPLETE HER PIH LABS, SO THAT SHE CAN BE EVALUATED PROPERLY. PT STILL REFUSED Merline Hankvane canales renetta, [place] - [facility] 7 15:20:51 Problem Notes None recorded. Procedures Surgical History Date Name Laterality Status Provider Name and Address Organization Details Recorded Time 7 Date of Last Pap Smear completed Radha Vance MA [facility] 09/05/2017 15:54:43 7 Caesarean Section completed Radha Vance MA [facility] 09/05/2017 16:01:17 Imaging Results Imaging Date Name Status LastModified by Goldy wheeler Details LastModified Time 10/21/2016 US, obstetric, biophysical profile completed [address] [place], [address], 10/24/2016 10:34:08 10/21/2016 US, obstetric, biophysical profile completed [address] [place], [address], 10/24/2016 10:34:09 10/21/2016 US, obstetric, biophysical profile completed [facility] [address] [place] [address] [place], [address], 10/25/2016 09:09:33 10/24/2016 US, obstetric, biophysical profile completed [address] [place], [address], 10/26/2016 10:03:21 10/24/2016 US, obstetric, biophysical profile completed [facility] ([facility] [address] [place] [address] [place], [address], 10/26/2016 02:34:28 10/27/2016 US, obstetric, biophysical profile completed [address] [place], [address], 10/29/2016 18:44:02 10/27/2016 US, obstetric, follow-up completed [facility] ([facility]) [address] [place] [address] [place], [address], 10/31/2016 18:48:37 10/31/2016 US, obstetric, biophysical profile completed [address] [place], [address], 11/01/2016 16:54:00 11/03/2016 US, obstetric, biophysical profile + non-stress test completed [address] [place], [address], 11/04/2016 19:56:34 11/08/2016 US, obstetric, follow-up completed [address] [place], [address], 11/16/2016 09:17:14 11/08/2016 US, obstetric, biophysical profile + non-stress test completed [address] [place], [address], 11/09/2016 09:04:59 11/10/2016 US, obstetric, biophysical profile + non-stress test completed [address] [place], [address], 11/11/2016 08:26:27 11/10/2016 US, obstetric, biophysical profile completed [address] [place], [address], 11/11/2016 08:26:28 11/10/2016 US, obstetric, biophysical profile + non-stress test completed [facility] ([facility]) [address] [place] [address] [place], [address], 11/16/2016 06:25:51 11/15/2016 US, obstetric, biophysical profile + non-stress test completed [address] [place], [address], 11/18/2016 13:57:20 11/17/2016 US, obstetric, biophysical profile + non-stress test completed [address] [place], [address], 11/18/2016 13:57:21 Procedure Notes None recorded. Medical [...] Not Available N ot Available Estarylla 0.25 mg-0.035 mg tablet TAKE 1 TABLET BY MOUTH EVERY DAY DIRECTED active Not Available Not Available No t Available Vitals Date Recorded Body height Body mass index (BMI) Systolic blood pressure Diastolic blood pressure Provider Name and Address Organization Details Last Updated DateTime 11/08/2016 162.56 cm 55.8 kg/m2 152 mm[Hg] 92 mm[Hg] Evelyn Weber MA [facility] 11/08/2016 16:39:49 Date Recorded Body weight Provider Name an d Address Organization Details Last Updated DateTime 11/08/2016 475950.83173 g Sera Lynn MD Attn: Accounting,[address] [facility], [place], [address], [facility] 11/08/2016 16:51:31 Date Recorded Body height Body mass index (BMI) Systolic blood pressure Diastolic blood pressure Provider Name and Address Organization Details Last Updated DateTime 11/30/2016 162.56 cm 53.4 kg/m2 128 mm[Hg] 86 mm[Hg] Vilma Colbert MA [facility] 11/30/2016 09:40:52 Date Recorded Body weight Provider Name an d Address Organization Details Last Updated DateTime 11/30/2016 408506.920918 g Evelyn Weber MA [facility] 11/30/2016 10:22:00 Date Recorded Body height Body weight Body mass index (BMI) Systolic blood pressure Diastolic blood pressure Provider Name and Address Organization Details Last Updated DateTime 01/11/2017 162.56 cm 290767.2 5 g 50.1 kg/m2 132 mm[Hg] 76 mm[Hg] Marissa Lin RN [facility] 7 15:09:36 Date Recorded Body height Body weight Body mass index (BMI) Systolic blood pressure Diastolic blood pressure Provider Name and Address Organization Details Last Updated DateTime 01/13/2017 162.56 cm 664196.9 7 g 50.1 kg/m2 138 mm[Hg] 76 mm[Hg] Marissa Lin RN [facility] 7 15:52:40 Date Recorded Body height Body mass index (BMI) Body weight Systolic blood pressure Diastolic blood pressure Provider Name and Address Organization Details Last Updated DateTime 09/05/2017 162.56 cm 48.6 kg/m2 326722.6 4 g 126 mm[Hg] 78 mm[Hg] Radha Vance MA [facility] 7 15:59:44 Social History Question Answer Notes LastModified by Organizat ion Details LastModified Time Tobacco Smoking Status Current Every Day Smoker Vilma Colbert MA [facility], [facility] 11/01/2016 16:05:28 Do You Have An Advance [...] Clots N Lung Disease N Acne N Eating Disorder N Breast Problem N Anemia N Anesthesia Complications N Headaches/Migraines [...] virus, quadrivalent, preservative 6 completed Not Available [employer] 11/30/2019 02:44:48 Past Encounters Encounter ID Performer Location Encounter Start Date Encounter Closed Date Diagnosis/Indication Diagnosis SNOMED-CT Code Diagnosis ICD10 Code Diagnosis Note [id number] MD Grecia William [facility] ([facility]) [address] [facility] [address] [place] [address] 09/09/2016 12:23:01 09/10/2016 16:29:05 Increased blood pressure 34891501 R03.0 Normal 1496649 2 Z34.90 Third trim piper 26036580 Z3A.30 [id number] MD Grecia William ([place] [address]) [address] [facility] [place] [address] 09/28/2016 12:01:06 09/29/2016 11:25:21 Normal [id number] Z34.90 [id number] MD Grecia William ([place] [address]) [address] [facility] [place] [address] 10/10/2016 15:15:58 10/11/2016 09:05:12 Normal 63306977 Z34.90 [id number] MD Grecia William ([place] [address]) [address] [facility] [place] [address] 10/18/2016 14:14:39 10/18/2016 19:14:03 Normal 83573534 Z34.90 [id number] MD Grecia William ([place] [address]) [address] [facility] [place] [address] 10/25/2016 16:11:49 10/27/2016 09:13:28 Normal 88538220 Z34.90 [id number] MD Grecia William ([place] [address]) [address] [facility] [place] [address] 11/01/2016 15:51:52 11/03/2016 09:19:22 Normal 02437821 Z34.90 - induced hypertension 44294042 O13.9 [id number] MD Grecia William ([place] [address]) [address] [facility] [place] [address] 11/08/2016 16:30:35 11/08/2016 18:12:27 Normal [id number] Z34.90 Mild pre-eclampsia [address] 007 O14.03 [id number] AMY Coronado ([facility] 122) [address] [facility] [place] [address] 11/30/2016 09:13:31 11/30/2016 10:49:[id number] Tuan dodson called and patient went there with child and scored a 11 on the depression screening. management 278 722497 Z39.1 [id number] MD Grecia William ([facility] 122) [address] [facility] [place] [address] 01/11/2017 14:57:57 02/08/2017 08:48:[address] Dickerson office called and patient went there with child and scored a 11 on the depression screening. Vaginal discharge 238051 006 N89.8 Uses oral contraception 4508482 Z30.41 [id number] MD Grecia William ([facility] 122) [address] [facility] [place] [address] 01/13/2017 15:41:19 01/13/2017 17:49:18 Menorrhagia 199142043 N92.0 [id number] MD Grecia William ([facility]) [address] [facility] [place] [address] 09/05/2017 15:44:40 09/05/2017 17:50:30 Gynecologic examination 97355426 Z01.419 Venereal d isease screening 325969419 Z11.3 Health Concerns Section Related Observation LastModified by Organization Detai ls LastModified Time None Recorded Concern Status LastModified by Organization Details LastModified Time None Recorded Advance Directives Directive N: Payers Encounter Date Sequence Insurance Name Policy Number Policy Tran Covered Member ID Tran Member ID Guarantor Name 11/08/2016 1 [facility] (MEDICAID HMO) Nubia Jeeninga [id number] Nubia Jeeninga 11/30/2016 1 [facility] (MEDICAID HMO) Nubia Jeeninga [id number] Nubia Jeeninga 01/11/2017 1 [facility] (MEDICAID HMO) Nubia Jeeninga [id number] Nubia Jeeninga 01/13/2017 1 [facility] (MEDICAID HMO) Nubia Jeeninga [id number] Nubia Jeeninga 09/05/2017 1 [facility] (MEDICAID HMO) Nubia Jeeninga [id number] Nubia Jeeninga Notes Date Note Type Note Provider Name and Address Organization Details Recorded Time 11/30/2016 text/html Patient is here for removal of jessy s/p primary low transverse section on 11/22/2016. Vilma Colbert MA [facility], [facility] 11/30/2016 11:47:49 01/11/2017 text/html VisitReported bypatient.Onset/Max ng:date of delivery: (11/22/2016) Quality:primary LST C/S Context:complication s of : PIH; complications of labor: arrest of descent; good support from partner/family Associated Symptoms:no abnormal bleeding; no pelvic pain; laceration well healed; no constipation; no fecal incontinence; no dysuria; no urinary incontinence; no fever; no problems; no mastitis Sera Lynn MD Attn: Accounting,[address] [place], [address], [facility] 02/07/2017 15:02:52 01/13/2017 text/html Patient is here [...] conception. Sera Lynn MD Attn: Accounting[address] [place], [address], [facility] 01/13/2017 17:49:09 09/05/2017 text/html Annual GYNReport ed [...] typing Sera Lynn MD Attn: Accounting[address] [place], [address], [facility] 09/05/2017 17:50:19 OBGyn Episode Ob Episode Information Episode Created Date Number of Fetuses Patient Bloodtype Patient rh Status Prepregnancy Weight lbs Domestic Partner Domestic Partner Phone Father Name Quality Compliance Consultant Status 09/09/20 16 1 O Positive CLOSED Fetus Data First Name Last Name Admitted to NICU Weight (g) Sex Living Outcome Pediatric Complications Fetus ID Race Codes Race Delivery Type Mirian Radha ne false [phone] F true Full Term [id number] White Problems Problem Notes patient was adopted Problem Name Start Date End Date Resolution Snomed Code Not e Recommendation refused 11/02/2016 [id number] PATIENT REFUSE TO GET 24 HOUR URINE [...] Ultra Sound Latest Days Gestation 0 0 Pre-jonas Flowsheet Flowsheet Date 09/09/2016 Gong Score Blood Edema Fundus Height Fundus Units Glucose Ketones Leukocytes Nitrite Labor Signs Protein Cervic Dilation Cervic Effacement Cervic Station trace 33 none negative neg Type Weight in lbs Pre/Post Dialysis Refused 315.957087832029 BP Diastolic BP Location Tested BP Systolic BP Type 102 160 90 138 Fetus Heart Rate Present A 150 Fetus Movement A Yes Comments Patient is being seen by me for the first ob visit. Patient had been receiving care at [facility]. BP was noted. Patient denies headaches, blurring [...] Type Weight in lbs Pre/Post Dialysis Refused 317.224953272927 BP Diastolic BP Location Tested BP Systolic BP Type 74 128 Fetus Heart Rate Present A 154 Present Fetus Movement A Yes Comments Patient offers no complaints . [facility] is larger than dates. Will obtain OB US for interval growth. GBS culture to be done during next visit. labor precautions were given. Flowsheet Date 10/10/2016 Gong Score Blood Edema Fundus Height Fundus Units Glucose Ketones Leukocytes Nitrite Labor Signs Protein Cervic Dilation Cervic Effacement Cervic Station 2+ none negative trace Type Weight in lbs Pre/Post Dialysis Refused 321.456854762292 BP Diastolic BP Location Tested BP Systolic BP Type 104 140 Fetus Heart Rate Present A Present Fetus Movement A Yes Comments BP noted. Patient denies hea daches blurring of vision or epigastric pain. Patient was instructed to go to labor and delivery at [facility] for pre-eclampsia labs and biophysical profile. labor precautions were given. GBS culture was sent. Flowsheet Date 10/18/2016 Gong Score Blood Edema Fundus Height Fundus Units Glucose Ketones Leukocytes Nitrite Labor Signs Protein Cervic Dilation Cervic Effacement Cervic Station trace 41 neg 0cm 50% -3 Type Weight in lbs Pre/Post Dialysis Refused 322.452423754731 BP Diastolic BP Location Tested BP Systolic [...] Type Weight in lbs Pre/Post Dialysis Refused 322.630053981633 BP Diastolic BP Location Tested BP Systolic [...] Type Weight in lbs Pre/Post Dialysis Refused 319.576998970955 BP Diastolic BP Location Tested BP Systolic [...] Type Weight in lbs Pre/Post Dialysis Refused 325.584023337467 BP Diastolic BP Location Tested BP Systolic [...] Type Weight in lbs Pre/Post Dialysis Refused 311.341189111356 BP Diastolic BP Location Tested BP Systolic BP Type 86 128 sitting Fetus Heart Rate Present Fetus Movement Comments Menstrual History Last Menstrual Date Menses Monthly On Bcp Conception Prior Menses Frequency Hcg Plus Date Menarche Onset Age 0302/06/2016 Genetic Screening And Infection History Question Response Note Patient's Age Will Be 35 Years Or Older At Estim ated Date of Delivery false Thalassemia (Bulgarian, Chilean, Mediterranean, Or Background): MCV < 80 false Neural Tube Defect (Meningomyelocele, Spina Bifi da, Or Anencephaly) false Congenital Heart Defect false Down Syndrome false Jose-Sachs (eg, Church, Cajun, Amharic-[place]) f alse Deborah Disease false Sickle Cell Disease Or Trait () false Hemophilia Or Other Blood Disorders false Muscular Dystrophy false Cystic Fibrosis false Laura's Chorea false Mental Retardation/Autism false If Yes, [...]
--- OUTSIDE RECORDS SUMMARY | 2025-02-25 15:40 | XMS_ITS ---
Author Organization [facility] Address [address] [place] [address] Care Team Providers Care Licensed Physical Therapy Assistant Name Role Phone Deepa Taylor Unavailable [phone] zzzzMigration, zzzzProvider Unavailable Unav ailable Allergies Allergen [...] and/or divide. oral 1 *Pick strength-form from [employer] for eRX* Active Humira Pen 40 mg/0.8 mL Subcutaneous Active busPIRone HCl 15 MG prn Oral Active Naproxen 500 MG take 1 tablet (500 mg) by oral route 2 times per day with food Oral 2 Active Encounters Encounter Location Date Provider Diagnosis [facility] [address] [facility] [address] [place] [address] 09/03/2023 zzzzProvider zzzzMigration Plan Of Treatment No Information Progress Notes * Venkat RAINESOB: [birth year] (34 yo F)Acc No.[id number]:09/03/2023 Patient: Nubia MENDOZA :1990 A ge:32 Y S ex:Female Address:[address] [place] [address], [address] Subjective: * Chief Complaints: * E MR-Chris * Medical History: * Surgical History: A CL repair; [id number]; 2614-86-28pgmqrs lump; 2020-07-15C section; 2020-07-15 * Hospitalization/Major Diagno [...] , Notes to Pharmacist: *Pick strength-form from [facility] for eRX*Plaquenil 200 MG Tablet [...] , Notes to Pharmacist: *Pick strength-form from [facility] for eRX*Taking Plaquenil 200 MG [...] Codes: * true * Date: Generated for Scotty birch/Lashanda/Marcus on: 0 02/25/2025 03:39 PM CDT
--- OUTSIDE RECORDS SUMMARY | 2025-02-25 15:41 | XMS_ITS | Clinical Summary ---
Author Organization [facility] Address [address] [place] [address] Care Team Providers Care Lan Specialist Name Role Phone Cullenalisia Malissa Primary Care Provider Unavailabl e Source Comments [facility],non-owned Affiliates and Associated Physician Practices is amultiple site organization consisting of ambulatory clinics and hospital sitesin [place], [place], [place] and [place]. This disclosure is being madepursuant to the Care Everywhere program and may not contain all information available regarding this patient. Last updated 18.[facility] Allergies Active Allergy Reactions Criticality Noted Date Comments Sulfa Drugs Rash Medium 12/08/2014 Medications * Be aware that medications may not be up to date on this document. Alwaysverify current medications with the patient. hydrocodone-acet aminophen (NORCO) 5-325 MG tablet Take 1 Tab by mouth every 4 hours as needed for Pain. 20 Tab 0 12/08/2014 Active naproxen (NAPROSYN) 500 MG tablet Take 1 Tab by mouth 2 times daily as needed for Pain. 20 Tab 0 12/08/2014 Active Social History Tobacco Use Types Packs/Day Years Used Date Smoking Tobacco: Every Day Comments Unknown Sex and Gender Information Value Date Recorded Sex Assigned at Not on file Legal Sex Female 5:44 AM HOSTESS HOST Gender Identity Not on file Sexual Orientation Not on file Last Filed Vital Signs Vital Sign Reading Time Taken Comments Blood Pressure 124/80 01/02/2017 2:20 PM HOSTESS HOST Pulse 93 01/02/2017 2:20 PM HOSTESS HOST Temperature 36.8 C (98.3 F) 01/02/2017 2:20 PM HOSTESS HOST Respiratory Rate 20 01/02/2017 2:20 PM HOSTESS HOST Oxygen Saturation 97% 01/02/2017 2:20 PM HOSTESS HOST Inhaled Oxygen Concentration - - Weight 131.5 kg (290 lb) 01/02/2017 2:20 PM HOSTESS HOST Height 160 cm (5' 3 ) 01/02/2017 2:20 PM HOSTESS HOST Body Mass Index 51.37 01/02/2017 2:20 PM HOSTESS HOST Plan of Treatment Health Maintenance Due Date Last Done Comments HIV SCREENING 2004 HEPATITIS C SCREENING 11/30/2007 DTAP/TDAP/TD VACCINES (1 - Tdap) 2008 HEPATITIS B VACCINE (1 of 3 - 19+ 3-dose series) 2008 COVID-19 VACCINE ( - 2023-2 5 season) 2024 DEPRESSION SCREENING 11/13/2024 INFLUENZA VACCINE (Season Ended) 2025 ZOSTER VACCINE (1 of 2) 2039 HIB [...] on patient's age to complete this topic Insurance [employer] MEDICAID - OUT OF STATE Care Teams Lan Specialist Relationship Specialty Start Date End Date Malissa Zamora Update Information PCP - General 04/24/19
--- OUTSIDE RECORDS SUMMARY | 2025-02-25 15:41 | XMS_ITS | Clinical Summary ---
Author Organization [facility] Address [address] [place] [address] Care Team Providers Care Truck Loader Name Role Phone Marissa Parrish MD Primary [...] of 3 - 19+ 3-dose series) 2008 HPV/Cotest (21-29) 2010 PAP SMEAR 2010 CERVICAL CANCER SCREENING 2019 HPV/Cotest (30-65) 2019 PAP SMEAR 2019 INFLUENZA VACCINE (#1) 2024 HPV VACCINES Aged Out No longer eligi ble based on patient's age to complete this topic Care Teams Truck Loader Relationship Specialty Start Date End Date Marissa Parrish MD PCP - General Family Practice 10/29/15
== END 2025-02-25 14:32 | disposition home or self-care (01) ==
LOC: ANHBWCAUD 14:32
PROVIDERS: PCP Family Medicine; Visit Provider Family Medicine
DX: H90.3 Sensorineural hearing loss, bilateral (principal); H93.12 Tinnitus, left ear
CPT/HCPCS: 92557; 92567

== ENCOUNTER 2025-04-08 00:20 | Day surgery (SDC) | payer OTHER, SELFPAY ==
--- OUTSIDE RECORDS SUMMARY | 2025-04-08 00:28 | XMS_ITS | Clinical Summary ---
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 CH: Report ID: [id number] Reading Location: [id number] Procedure Note Gerardo David Jr., MD - [...] Gerardo David M.D. CH: CH Report ID: [id number] Reading Location: [id number] Kar MACIAS IMG XR PROCEDURES Final Resu lt * Influenza A/B, RSV, and COVID-19 PCR Nasopharyngeal (01/23/2025 1:25 PM CDT) Pathologist [facility] COVID-19 RNA Negative Negative Influenza A RNA Negative Negative [facility] ([place]) Influenza B RNA Negative Negative [facility] ([place]) RSV RNA Negative Negative [facility] ([place]) Comment: Interpretive data: Testing performed by [facility]. This test is performed using the [employer] Xpert Xpress CoV-2/Flu/RSV plus assay. This is a multiplex, real- time reverse transcriptase PCR assay intended for the qualitative detection of nucleic acid from SARS-CoV-2, influenza A, influenza B, and respiratory syncytial virus. This assay has been cleared by the [place] Food and Drug administration. The performance characteristics have been verified by the [facility]. Results must be considered in the clinical context, and a negative result does not rule out infection. Interpretive Data last revised 2023 Nasopharyngeal 01/23/2025 1: 25 PM CDT 01/23/2025 1:29 PM CDT Narrative [facility] ([place]) - 01/23/2025 2:11 PM CDT Is the Patient experiencing symptoms consistent with COVID?->Yes Cr Patel MD LAB MICROBIOLOGY - GENERAL O RDERABLES Final Result JOSE [facility] ([place]) [address] [facility] Department [place] [address] * eGFR (01/23/2025 1:25 PM CDT) Pathologist [facility] eGFR >90 >=60 mL/min/1. 73 m2 Comment: [...] MD LAB BLOOD ORDERABLES Final R esult [facility] ([place]) [address] [facility] Department [place] [address] * Differential, auto (01/23/2025 1:25 PM CDT) [...] Imm gran pct 0.4 % [facility] ([place]) Comment: Interpretive Data Percent cell count reference [...] Final R esult [facility] ([place]) 1 [facility] Department [place] [address] * (ABNORMAL) CBC with auto differential (01/23/2025 [...] ([place]) MCV 74.4(L) 81.3 - 96.4 fL [facility] ([place] MCH 22.1(L) 27.1 - 33.3 pg [facility] ([place] MCHC 29.7(L) 32.3 - 35.7 g/dL [facility] ([place] RDW CV 16.2(H) 11.1 - 14.9 % [facility] ([place] RDW SD 43.6 35.7 - 48.1 fL [facility] ([place]) NRBC abs 0.00 0.00 - 0.01 K/cumm [facility] ([place]) Blood 01/23/2025 1:25 PM CDT 01/23/2025 1:28 PM CDT Cr Patel MD LAB BLOOD ORDERABLES Final R esult [facility] ([place]) [address] [facility] Department [place] [address] * Comprehensive metabolic panel (01/23/2025 1:25 PM CDT) Sodium 141 135 - 145 mmol/L Potassium, pl 4.0 3.3 - 4.9 mmol/L [facility] ([place]) Chloride 104 97 - 110 mmol/L [facility] CO2 25 22 - 32 mmol/L [facility] ([place]) Anion gap 12 2 - 15 mmol/L [facility] ([place]) BUN 9 6 - 25 mg/dL [facility] ([place]) Creatinine 0.83 0.60 - 1.10 mg/dL [facility] ([place] Glucose 114 70 - 199 mg/dL [facility] ([place]) Comment: Interpretive Data Fasting glucose [...] Final R esult [facility] ([place]) [address] [facility] [place] [address] from Last 3 Months Insurance [facility] MEDICAID [facility] IDPA [facility] IDPA IDPA Care Teams Tube Turner Relationship Specialty Start Date End Date Marissa Parrish MD PCP - General 06/18/17
--- OUTSIDE RECORDS SUMMARY | 2025-04-08 00:28 | XMS_ITS | Referral Summary ---
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 CH: SUSIE Report ID: [id number] Reading Location: [id number] Procedure Note Gerardo David Jr., MD - [...] by Gerardo David M.D. CH: Report ID: [id number] Reading Location: [id number] Kar MACIAS IMG XR PROCEDURES Final Resu lt * Influenza A/B, RSV, and COVID-19 PCR Nasopharyngeal (01/23/2025 1:25 PM CDT) COVID-19 RNA Negative Negative Influenza A RNA Negative Negative [facility] ([place]) Influenza B RNA Negative Negative [facility] ([place]) RSV RNA Negative Negative [facility] ([place]) Comment: Interpretive data: Testing performed by [facility]. This test is performed using the [employer] Xpert Xpress CoV-2/Flu/RSV plus assay. This is a multiplex, real- time reverse transcriptase PCR assay intended for the qualitative detection of nucleic acid from SARS-CoV-2, influenza A, influenza B, and respiratory syncytial virus. This assay has been cleared by the [place] Food and Drug administration. The performance characteristics have been verified by the [facility]. Results must be considered in the clinical context, and a negative result does not rule out infection. Interpretive Data last revised 2023 Nasopharyngeal 01/23/2025 1: 25 PM CDT 01/23/2025 1:29 PM CDT Narrative [facility] ([place]) - 01/23/2025 2:11 PM CDT Is the Patient experiencing symptoms consistent with COVID?->Yes Cr Patel MD LAB MICROBIOLOGY - GENERAL O RDERABLES Final Result Performing Organization Address [facility] Co de Phone Number [facility] ([place]) [address] [place] [address] [employer] [place] [address] * eGFR (01/23/2025 1:25 PM CDT) eGFR [...] ORDERABLES Final R esult Performing Organization Address City/[facility]/ZIP Co de Phone Number [facility] ([place]) [address] [facility] [employer] [place] [address] * Differential, auto (01/23/2025 1:25 PM CDT) [...] R esult [facility] ([place]) [address] [facility] [employer] [place] [address] * (ABNORMAL) CBC with auto differential (01/23/2025 [...] Final R esult [facility] ([place]) [address] [facility] [employer] [place] [address] * Comprehensive metabolic panel (01/23/2025 1:25 PM CDT) Pathologist [facility] Sodium 141 135 - 145 mmol/L Potassium, pl 4.0 3.3 - 4.9 mmol/L [facility] ([place]) Chloride 104 97 - 110 mmol/L [facility] ([place]) CO2 25 22 - 32 mmol/L [facility] ([place]) Anion gap 12 2 - 15 mmol/L [facility] ([place]) BUN 9 6 - 25 mg/dL [facility] [...] R esult [facility] ([place]) [address] [facility] Department [place] [address] from Last 3 Months Insurance [facility] MEDICAID [facility] IDPA IDPA Care Teams Internet Salesperson Relationship Specialty Start Date End Date Marissa Parrish MD PCP - General 06/18/17
--- OUTSIDE RECORDS SUMMARY | 2025-04-08 00:29 | XMS_ITS | Clinical Summary ---
Author Organization [facility] Address [address] [place] [address] Phone Care Team Providers Care Engineering Design Supervisor Name Role Phone Marissa Parrish MD Primary Care Provider [phone] Allergies Active Allergy Reactions Criticality Noted Date Comments Human Papillomavirus 4-Valent Recombinant Vaccine Rash 11/13/2018 Lamotrigine Rash 11/13/2018 Sulfa Antibiotics Rash 11/13/2018 Jzuylrj-Jzbknb-Dvknf Pertussis Other (see Comments) 11/13/2018 Chest pain [...] on file Legal Sex Female 4:40 PM WASHER OPERATOR Gender Identity Not on file Sexual Orientation Not on file Last Filed Vital Signs Vital Sign Reading Time Taken Comments Blood Pressure 140/68 11/13/2018 5:45 PM WASHER OPERATOR Pulse 98 11/13/2018 5:45 PM WASHER OPERATOR Temperature 36.7 C (98 F) 11/13/2018 4:45 PM WASHER OPERATOR Respiratory Rate 20 11/13/2018 4:45 PM WASHER OPERATOR Oxygen Saturation 98% 11/13/2018 5:45 PM WASHER OPERATOR Inhaled Oxygen Concentration - - Weight 131.5 kg (290 lb) 11/13/2018 4:45 PM WASHER OPERATOR Height 160 cm (5' 3 ) 11/13/2018 4:45 PM WASHER OPERATOR Body Mass Index 51.37 11/13/2018 4:45 PM WASHER OPERATOR Plan of Treatment Not on file Insurance MEDICAID [employer] Care Teams Engineering Design Supervisor Relationship Specialty Start Date End Date Marissa Parrish MD PCP - General Family Medicine 11/13/18
--- OUTSIDE RECORDS SUMMARY | 2025-04-08 00:29 | XMS_ITS | Data Portability ---
Author Organization [facility] Address [address] [place] [address] Assessment No assessment recorded. Plan of Treatment Reminders Order Date Submit Date Provider Last Modified By Organization Details Last Modified Time Details Appointments None recorded. Lab pap, IG + reflex HR HPV (16+18) 2016 017 [facility], [address] [place], [place] [address], [address], [place], [address], 7 12:09:10 bacterial vaginosis + vaginitis panel, vaginal 2016 017 [facility], [address], [address], [place], [address], 7 07:14:53 CBC w/ auto diff 2016 017 [facility], [facility] [place][note 2][address] [facility] [address], [address], [place], [address], 7 07:13:04 bacterial vaginosis + vaginitis panel, vaginal 2016 017 L[facility], [address], [address], [place], [address], 7 07:06:57 urinalysis , dipstick 2015 016 LIVE In-Office Order, Internal Use Only DO Not Attach Compendium DO Not Attach Compendium, Do Not Delete/merge, [id number] 6 18:24:47 Referral None recorded. Procedures None recorded. Surgeries None recorded. Imaging None recorded. Medication Orders Sprintec (28) 0.25 mg-0.035 mg tablet [address] [id number], [address] [place], [place], [id number], 7 16:10:59 Patient TargetsNo targets recorded. Patient Instructions Encounter Date Encounter Id Patient Instructions Last Modified By Organization Details Last Modified Time 11/08/2016 [id number] preeclampsia: care instructions Not available 11/09/2016 10:19:03 Will schedule th e patient for IOL for mild pre-eclampsia. Patient was instructed to go labor and delivery for IOL immediately. [email or web address] Not available 11/08/2016 17:39:42 11/30/2016 [id number] Vlad were removed. Patient will follow up for care in 6 weeks. Rx for breast pump was given to the patient as per patient request. [email or web address] Not available 11/30/2016 10:48:15 01/11/2017 [id number] edinburgh depression scale* LIVE Not available 01/11/2017 [...] disease. [email or web address] Not available 01/11/2017 15:31:10 01/13/2017 [id number] heavy menstrual periods: care instructions [facility]ade Not available 01/13/2017 18:08:59 CBC was ordered. Patient was started on OCPs 3 days prior. [email or web address] Not available 01/13/2017 17:48:48 09/05/2017 [id number] Safe sex counseling was done. Vaginitis panel [...] DO Not Attach Compendium, Do Not Delete/merge, [id number] 01/11/2017 15:09:57 11/08/20 16 11/08/2016 urina lysis , dipst ick Leukocytes Small Not Available In-Offi ce Order Internal Use Only DO Not Attach Compendium DO Not Attach Compendium, Do Not Delete/merge, [id number] 11/08/2016 16:32:56 11/08/20 16 11/08/2016 urina lysis , dipst ick Nitrite negati ve Not Available In-Office Order Internal Use Only DO Not Attach Compendium DO Not Attach Compendium, Do Not Delete/merge, [id number] 11/08/2016 16:32:56 11/08/20 16 11/08/2016 urina lysis , dipst ick Urobilinogen .2 Not Available In-Of fice Order Internal Use Only DO Not Attach Compendium DO Not Attach Compendium, Do Not Delete/merge, [id number] 11/08/2016 16:32:56 11/08/20 16 11/08/2016 urina lysis , dipst ick Protein 30 Not Available In-Office Order Internal Use Only DO Not Attach Compendium DO Not Attach Compendium, Do Not Delete/merge, [id number] 11/08/2016 16:32:56 11/08/20 16 11/08/2016 urina lysis , dipst ick pH 7.0 Not Available In-Office Order Internal Use Only DO Not Attach Compendium DO Not Attach Compendium, Do Not Delete/merge, [id number] 11/08/2016 16:32:56 11/08/20 16 11/08/2016 urina lysis , dipst ick Blood Negati ve Not Available In-Office Order Internal Use Only DO Not Attach Compendium DO Not Attach Compendium, Do Not Delete/merge, [id number] 11/08/2016 16:32:56 11/08/20 16 11/08/2016 urina lysis , dipst ick Specific Cayuta 1.020 Not Available In-Off ice Order Internal [...] DO Not Attach Compendium, Do Not Delete/merge, [id number] 11/01/2016 16:07:43 11/01/20 16 11/01/2016 urina lysis , dipst ick Urobilinogen 1 Not Available In-Of fice Order Internal Use Only DO Not Attach Compendium DO Not Attach Compendium, Do Not Delete/merge, [id number] 11/01/2016 16:07:43 11/01/20 16 11/01/2016 urina lysis , dipst ick Protein 30 Not Available In-Office Order Internal Use Only DO Not Attach Compendium DO Not Attach Compendium, Do Not Delete/merge, [id number] 11/01/2016 16:07:43 11/01/20 16 11/01/2016 urina lysis , dipst ick pH 7.0 Not Available In-Office Order Internal Use Only DO Not Attach Compendium DO Not Attach Compendium, Do Not Delete/merge, [id number] 11/01/2016 16:07:43 11/01/20 16 11/01/2016 urina lysis , dipst ick Blood Negati ve Not Available In-Office Order Internal Use Only DO Not Attach Compendium DO Not Attach Compendium, Do Not Delete/merge, [id number] 11/01/2016 16:07:43 11/01/20 16 11/01/2016 urina lysis , dipst ick Specific Cayuta 1.020 Not Available In-Off ice Order Internal Use Only DO Not Attach Compendium DO Not Attach Compendium, Do Not Delete/merge, [id number] 11/01/2016 16:07:43 11/01/20 16 11/01/2016 urina lysis , dipst ick Ketone Negati ve Not Available In-Office Order Internal Use Only DO Not Attach Compendium DO Not Attach Compendium, Do Not Delete/merge, [id number] 11/01/2016 16:07:43 11/01/20 16 11/01/2016 urina lysis , dipst ick Bilirubin Negati ve Not Available In-Office Order Internal Use Only DO Not Attach Compendium DO Not Attach Compendium, Do Not Delete/merge, [id number] 11/01/2016 16:07:43 11/01/20 16 11/01/2016 urina lysis , dipst ick Glucose Negati ve Not Available In-Office Order Internal Use Only DO Not Attach Compendium DO Not Attach Compendium, Do Not Delete/merge, [id number] 11/01/2016 16:07:43 11/01/20 16 11/01/2016 urina lysis , dipst ick Appearance Clear Not Available In-Offi ce Order Internal Use Only DO Not Attach Compendium DO Not Attach Compendium, Do Not Delete/merge, [id number] 11/01/2016 16:07:43 11/01/20 16 11/01/2016 urina lysis , dipst ick Color Yellow Not Available In-Office Order Internal Use Only DO Not Attach Compendium DO Not Attach Compendium, Do Not Delete/merge, [id number] 11/01/2016 16:07:43 10/25/20 16 10/25/2016 urina lysis [...] 10/25/2016 urina lysis , dipst ick Specific Cayuta 1.015 Not Available In-Off ice Order Internal [...] DO Not Attach Compendium, Do Not Delete/merge, [id number] 10/18/2016 14:25:07 10/18/20 16 10/18/2016 urina lysis , dipst ick Urobilinogen .2 Not Available In-Of fice Order Internal Use Only DO Not Attach Compendium DO Not Attach Compendium, Do Not Delete/merge, [id number] 10/18/2016 14:25:07 10/18/20 16 10/18/2016 urina lysis , dipst ick Protein Negati ve Not Available In-Office Order Internal Use Only DO Not Attach Compendium DO Not Attach Compendium, Do Not Delete/merge, [id number] 10/18/2016 14:25:07 10/18/20 16 10/18/2016 urina lysis , dipst ick pH 7.0 Not Available In-Office Order Internal Use Only DO Not Attach Compendium DO Not Attach Compendium, Do Not Delete/merge, [id number] 10/18/2016 14:25:07 10/18/20 16 10/18/2016 urina lysis , dipst ick Blood Small Not Available In-Office Order Internal Use Only DO Not Attach Compendium DO Not Attach Compendium, Do Not Delete/merge, 10/18/2016 14:25:07 10/18/20 16 10/18/2016 urina lysis , dipst ick Specific Cayuta 1.020 Not Available In-Off ice Order Internal Use Only DO Not Attach Compendium DO Not Attach Compendium, Do Not Delete/merge, [id number] 10/18/2016 14:25:07 10/18/20 16 10/18/2016 urina lysis , dipst ick Ketone Negati ve Not Available In-Office Order Internal Use Only DO Not Attach Compendium DO Not Attach Compendium, Do Not Delete/merge, [id number] 10/18/2016 14:25:07 10/18/20 16 10/18/2016 urina lysis , dipst ick Bilirubin Negati ve Not Available In-Office Order Internal Use Only DO Not Attach Compendium DO Not Attach Compendium, Do Not Delete/merge, [id number] 10/18/2016 14:25:07 10/18/20 16 10/18/2016 urina lysis , dipst ick Glucose Negati ve Not Available In-Office Order Internal Use Only DO Not Attach Compendium DO Not Attach Compendium, Do Not Delete/merge, [id number] 10/18/2016 14:25:07 10/10/20 16 10/10/2016 urina lysis , dipst ick Leukocytes Trace Not Available In-Offi ce Order Internal Use Only DO Not Attach Compendium DO Not Attach Compendium, Do Not Delete/merge, [id number] 10/10/2016 15:52:18 10/10/20 16 10/10/2016 urina lysis , dipst ick Nitrite negati ve Not Available In-Office Order Internal Use Only DO Not Attach Compendium DO Not Attach Compendium, Do Not Delete/merge, [id number] 10/10/2016 15:52:18 10/10/20 16 10/10/2016 urina lysis , dipst ick Urobilinogen .2 Not Available In-Of fice Order Internal Use Only DO Not Attach Compendium DO Not Attach Compendium, Do Not Delete/merge, [id number] 10/10/2016 15:52:18 10/10/20 16 10/10/2016 urina lysis , dipst ick Protein Trace Not Available In-Office Order Internal Use Only DO Not Attach Compendium DO Not Attach Compendium, Do Not Delete/merge, [id number] 10/10/2016 15:52:18 10/10/20 16 10/10/2016 urina lysis , dipst ick pH 7.0 Not Available In-Office Order Internal Use Only DO Not Attach Compendium DO Not Attach Compendium, Do Not Delete/merge, [id number] 10/10/2016 15:52:18 10/10/20 16 10/10/2016 urina lysis , dipst ick Blood Large Not Available In-Office Order Internal Use Only DO Not Attach Compendium DO Not Attach Compendium, Do Not Delete/merge, [id number] 10/10/2016 15:52:18 10/10/20 16 10/10/2016 urina lysis , dipst ick Specific Cayuta 1.020 Not Available In-Off ice Order Internal Use Only DO Not Attach Compendium DO Not Attach Compendium, Do Not Delete/merge, [id number] 10/10/2016 15:52:18 10/10/20 16 10/10/2016 urina lysis , dipst ick Ketone Negati ve Not Available In-Office Order Internal Use Only DO Not Attach Compendium DO Not Attach Compendium, Do Not Delete/merge, [id number] 10/10/2016 15:52:18 10/10/20 16 10/10/2016 urina lysis , dipst ick Bilirubin Negati ve Not Available In-Office Order Internal Use Only DO Not Attach Compendium DO Not Attach Compendium, Do Not Delete/merge, [id number] 10/10/2016 15:52:18 10/10/20 16 10/10/2016 urina lysis , dipst ick Glucose Negati ve Not Available In-Office Order Internal Use Only DO Not Attach Compendium DO Not Attach Compendium, Do Not Delete/merge, [id number] 10/10/2016 15:52:18 10/10/20 16 10/12/2016 bacte rial vagin osis + vagin itis panel , vagin al trich vag by ZULMA NEGATI VE negati ve Not Available [facility] ([facility]) [address] [place] [address], [address], 10/13/2016 07:14:20 10/10/20 16 10/12/2016 bacte rial vagin osis + vagin itis panel , vagin al chlamydia trachomatis, ZULMA NEGATI VE negati ve Not Available [facility] ([facility]) [address] [place], [address], 10/13/2016 07:14:20 10/10/20 16 10/12/2016 bacte rial vagin osis + vagin itis panel , vagin al neisseria gonorrhoeae, UZLMA NEGATI VE negati ve Not Available [facility] ([facility]) [address] [place], [address], 10/13/2016 07:14:20 10/10/20 16 10/13/2016 bacte rial vagin osis + vagin itis panel , vagin al atopobium vaginae LOW - 0 score Not Available [facility] ([facility]) [address] [place], [address], 10/13/2016 07:14:20 10/10/20 16 10/13/2016 bacte rial vagin osis + vagin itis panel , vagin al bvab 2 LOW - 0 score Not Available [facility] ([facility]) [address] [place], [address], 10/13/2016 07:14:20 10/10/20 16 10/13/2016 bacte rial [...] IS NOT NECES CARSON. Not Available [facility] ([facility]) [address] [facility], [place], [address], 10/13/2016 07:14:20 10/10/20 16 10/13/2016 bacte rial vagin osis + vagin itis panel , vagin al yaakov albicans, ZULMA NEGATI VE negati ve Not Available [facility] ([facility]) [address] [facility], [place], [address], 10/13/2016 07:14:20 10/10/20 16 10/13/2016 bacte rial [...] IS NOT NECES CARSON. Not Available [facility] ([facility]) [address] [facility], [place], [address], 10/13/2016 07:14:20 10/10/20 16 10/12/2016 cultu re, [...] N IS NOTED . Not Available [facility] ([facility]) [address] [facility], [place], [address], 10/13/2016 07:14:20 10/18/20 16 10/19/2016 drug scree n, urine amphetamines , urine NEGATI VE NG/mL cutoff =1000 AMPHE TAMIN E TEST INCLU SERGIO AMPHE TAMIN E AND METHA MPHET AMINE . Not Available [facility] ([facility]) [address] [place] [address], [address], 10/22/2016 07:14:13 10/18/20 16 10/19/2016 drug scree n, urine barbiturates NEGATI VE NG/mL cutoff =200 Not Available [facility] ([facility]) [address] [place] [address], [address], 10/22/2016 07:14:13 10/18/20 16 10/19/2016 drug scree n, urine benzodiazepi galo NEGATI VE NG/mL cutoff =200 Not Available [facility] ([facility]) [address] [place] [address], [address], 10/22/2016 07:14:13 10/18/20 16 10/19/2016 drug scree n, urine cannabinoid SEE FINAL RESULT S NG/mL cutoff =50 Not Available [facility] ([facility]) [address] [place] [address], [address], 10/22/2016 07:14:13 10/18/20 16 10/19/2016 drug scree n, urine cocaine (metab.) NEGATI VE NG/mL cutoff =300 Not Available [facility] ([facility]) [address] [place], [address], 10/22/2016 07:14:13 10/18/20 16 10/19/2016 drug scree n, urine methaqualone NEGATI VE NG/mL cutoff =300 Not Available [facility] ([facility]) [address] [place] [address], [address], 10/22/2016 07:14:13 10/18/20 16 10/19/2016 drug scree n, urine opiates NEGATI VE NG/mL cutoff =2000 OPIAT E TEST INCLU SERGIO CODEI NE AND MORPH INE ONLY. Not Available [facility] ([facility]) [address] [place] [address], [address], 10/22/2016 07:14:13 10/18/20 16 10/19/2016 drug scree n, urine phencyclidin e NEGATI VE NG/mL cutoff =25 Not Available [facility] ([facility]) [address] [place] [address], [address], 10/22/2016 07:14:13 10/18/20 16 10/19/2016 drug scree n, urine methadone screen, urine NEGATI VE NG/mL cutoff =300 Not Available [facility] ([facility]) [address] [place] [address], [address], 10/22/2016 07:14:13 10/18/20 16 10/19/2016 drug scree n, urine propoxyphene , urine NEGATI VE NG/mL cutoff =300 Not Available [facility] ([facility]) [address] [place] [address], [address], 10/22/2016 07:14:13 10/18/20 16 10/21/2016 drug scree n, urine cannabinoid POSITI VE cutoff =50 abnormal Not Available [facility] ([facility]) [address] [place] [address], [address], 10/22/2016 07:14:13 10/18/20 16 10/21/2016 drug scree n, urine carboxy THC GC/MS conf 171 NG/mL cutoff =15 Not Available [facility] ([facility]) [address] [place] [address], [address], 10/22/2016 07:14:13 10/18/20 16 10/19/2016 hsv (1+2) [...] RAMONA TO HSV-1 . Not Available [facility] ([facility]) [address] [facility], [place], [address], 10/22/2016 07:14:13 10/18/20 16 10/19/2016 hsv (1+2) [...] RAMONA TO HSV-2 . Not Available [facility] ([facility]) [address] [facility], [place], [address], 10/22/2016 07:14:13 10/18/20 16 10/19/2016 varic brennen- [...] STAGE OF DISEA SE. Not Available [facility] ([facility]) [address] [facility], [place], [address], 10/22/2016 07:14:14 11/01/20 16 11/02/2016 CBC w/ auto diff WBC 8.3 x10e3 /uL 3.4-10 .8 Not Available [facility] ([facility]) [address] [place], [address], 11/02/2016 07:14:39 11/01/20 16 11/02/2016 CBC w/ auto diff RBC 4.32 x10e6 /uL 3.77-5 .28 Not Available [facility] ([facility]) [address] [place], [address], 11/02/2016 07:14:39 11/01/20 16 11/02/2016 CBC w/ auto diff hemoglobin 11.1 g/dL 11.1-1 5.9 Not Available [facility] ([facility]) [address] [place], [address], 11/02/2016 07:14:39 11/01/20 16 11/02/2016 CBC w/ auto diff hematocrit 35.2 % 34.0-4 6.6 Not Available [facility] ([facility]) [address] [place] [address], [address], 11/02/2016 07:14:39 11/01/20 16 11/02/2016 CBC w/ auto diff MCV 82 fL 79-97 Not Available [facility] ([facility]) [address] [place], [address], 11/02/2016 07:14:39 11/01/20 16 11/02/2016 CBC w/ auto diff MCH 25.7 pg 26.6-3 3.0 below low normal Not Available [facility] ([facility]) [address] [place], [address], 11/02/2016 07:14:39 11/01/20 16 11/02/2016 CBC w/ auto diff MCHC 31.5 g/dL 31.5-3 5.7 Not Available [facility] ([facility]) [address] [place], [address], 11/02/2016 07:14:39 11/01/20 16 11/02/2016 CBC w/ auto diff RDW 15.3 % 12.3-1 5.4 Not Available [facility] ([facility]) [address] [place], [address], 11/02/2016 07:14:39 11/01/20 16 11/02/2016 CBC w/ auto diff platelets 245 x10e3 /uL 150-37 9 Not Available [facility] ([facility]) [address] [place], [address], 11/02/2016 07:14:39 11/01/20 16 11/02/2016 CBC w/ auto diff neutrophils 78 % Not Available [facility] ([facility]) [address] [place], [address], 11/02/2016 07:14:39 11/01/20 16 11/02/2016 CBC w/ auto diff lymphs 14 % Not Available [facility] ([facility]) [address] [place] [address], [address], 11/02/2016 07:14:39 11/01/20 16 11/02/2016 CBC w/ auto diff monocytes 7 % Not Available [facility] ([facility]) [address] [place] [address], [address], 11/02/2016 07:14:39 11/01/20 16 11/02/2016 CBC w/ auto diff eos 1 % Not Available [facility] ([facility]) [address] [place] [address], [address], 11/02/2016 07:14:39 11/01/20 16 11/02/2016 CBC w/ auto diff basos 0 % Not Available [facility] ([facility]) [address] [place] [address], [address], 11/02/2016 07:14:39 11/01/20 16 11/02/2016 CBC w/ auto diff 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 0 Not Available [facility] ([facility]) [address] [facility], [place], [address], 11/02/2016 07:14:39 11/01/20 16 11/02/2016 CBC w/ auto diff lymphs (absolute) 1.2 x10e3 /uL 0.7-3. 1 Not Available [facility] ([facility]) [address] [place], [address], 11/02/2016 07:14:39 11/01/20 16 11/02/2016 CBC w/ auto diff monocytes(ab solute) 0.6 x10e3 /uL 0.1-0. 9 Not Available [facility] ([facility]) [address] [place], [address], 11/02/2016 07:14:39 11/01/20 16 11/02/2016 CBC w/ auto diff eos (absolute) 0.1 x10e3 /uL 0.0-0. 4 Not Available [facility] ([facility]) [address] [facility], [place], [address], 11/02/2016 07:14:39 11/01/20 16 11/02/2016 CBC w/ auto diff baso (absolute) 0.0 x10e3 /uL 0.0-0. 2 Not Available [facility] ([facility]) [address] [place], [address], 11/02/2016 07:14:39 11/01/20 16 11/02/2016 CBC w/ auto diff immature granulocytes 0 % Not Available [facility] ([facility]) [address] [place], [address], 11/02/2016 07:14:39 11/01/20 16 11/02/2016 CBC w/ auto diff immature grans (abs) 0.0 x10e3 /uL 0.0-0. 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 Not Available [facility] ([facility]) [address] [facility] [place], [address], 11/02/2016 07:14:39 11/01/20 16 11/02/2016 CMP, serum or plasm a glucose, serum 114 mg/dL 65-99 above high normal Not Available [facility] ([facility]) [address] [facility] [place], [address], 11/02/2016 07:14:39 11/01/20 16 11/02/2016 CMP, serum or plasm a BUN 4 mg/dL 6-20 below low normal Not Available [facility] ([facility]) [address] [facility] [place], [address], 11/02/2016 07:14:39 11/01/20 16 11/02/2016 CMP, serum or plasm a creatinine, serum 0.42 mg/dL 0.57-1 .00 below low normal Not Available [facility] ([facility]) [address] [facility] [place], [address], 11/02/2016 07:14:39 11/01/20 16 11/02/2016 CMP, serum or plasm a eGFR if nonafricn AM 142 mL/mi n/1.7 3 >59 Not Available [facility] ([facility]) [address] [facility] [place], [address], 11/02/2016 07:14:39 11/01/20 16 11/02/2016 CMP, serum or plasm a eGFR if africn AM 164 mL/mi n/1.7 3 >59 Not Available [facility] ([facility]) [address] [facility], [place], [address], 11/02/2016 07:14:39 11/01/20 16 11/02/2016 CMP, serum or plasm a BUN/creatini ne ratio 10 8-20 Not Available [facility] ([facility]) [address] [facility], [place], [address], 11/02/2016 07:14:39 11/01/20 16 11/02/2016 CMP, serum or plasm a sodium, serum 139 mmol/ L 134-14 4 PLE ASE NOTE REFER ENCE INTER ARELI FOY E Not Available [facility] ([facility]) [address] [facility], [place], [address], 11/02/2016 07:14:39 11/01/20 16 11/02/2016 CMP, serum or plasm a potassium, serum 4.8 mmol/ L 3.5-5. 2 Not Available [facility] ([facility]) [address] [facility], [place], [address], 11/02/2016 07:14:39 11/01/20 16 11/02/2016 CMP, serum or plasm a chloride, serum 100 mmol/ L 96-106 PLE ASE NOTE REFER ENCE INTER ARELI FOY E Not Available [facility] ([facility]) [address] [facility], [place], [address], 11/02/2016 07:14:39 11/01/20 16 11/02/2016 CMP, serum or plasm a carbon dioxide, total 22 mmol/ L 18-29 Not Available [facility] ([facility]) [address] [facility], [place], [address], 11/02/2016 07:14:39 11/01/20 16 11/02/2016 CMP, serum or plasm a calcium, serum 8.9 mg/dL 8.7-10 .2 Not Available [facility] ([facility]) [address] [place], [address], 11/02/2016 07:14:39 11/01/20 16 11/02/2016 CMP, serum or plasm a protein, total, serum 6.1 g/dL 6.0-8. 5 Not Available [facility] ([facility]) [address] [place], [address], 11/02/2016 07:14:39 11/01/20 16 11/02/2016 CMP, serum or plasm a albumin, serum 3.4 g/dL 3.5-5. 5 below low normal Not Available [facility] ([facility]) [address] [place], [address], 11/02/2016 07:14:39 11/01/20 16 11/02/2016 CMP, serum or plasm a globulin, total 2.7 g/dL 1.5-4. 5 Not Available [facility] ([facility]) [address] [place], [address], 11/02/2016 07:14:39 11/01/20 16 11/02/2016 CMP, serum or plasm a A/G ratio 1.3 1.1-2. 5 Not Available [facility] ([facility]) [address] [place], [address], 11/02/2016 07:14:39 11/01/20 16 11/02/2016 CMP, serum or plasm a bilirubin, total 0.2 mg/dL 0.0-1. 2 Not Available [facility] ([facility]) [address] [place] [address], [address], 11/02/2016 07:14:39 11/01/20 16 11/02/2016 CMP, serum or plasm a alkaline phosphatase, S 177 IU/L 39-117 above high normal Not Available [facility] ([facility]) [address] [place], [address], 11/02/2016 07:14:39 11/01/20 16 11/02/2016 CMP, serum or plasm a AST (SGOT) 8 IU/L 0-40 Not Available [facility] ([facility]) [address] [place], [address], 11/02/2016 07:14:39 11/01/20 16 11/02/2016 CMP, serum or plasm a ALT (SGPT) 6 IU/L 0-32 Not Available [facility] ([facility]) [address] [place], [address], 11/02/2016 07:14:39 11/01/20 16 11/02/2016 uric acid, serum or plasm a uric acid, serum 4.5 mg/dL 2.5-7. 1 THERA LAN NASSAR T FOR GOUT PATIE NTS: <6.0 Not Available [facility] ([facility]) [address] [place], [address], 11/02/2016 07:14:40 11/01/20 16 11/02/2016 ldh, serum or plasm a LDH 126 IU/L 119-22 6 Not Available [facility] ([facility]) [address] [place], [address], 11/02/2016 07:14:40 01/12/20 17 01/13/2017 bacte rial vagin osis + vagin itis panel , vagin al trich vag by ZULMA NEGATI VE negati ve Not Available [facility] ([facility]) [address] [place], [address], 01/16/2017 07:06:57 01/12/20 17 01/13/2017 bacte rial vagin osis + vagin itis panel , vagin al chlamydia trachomatis, ZULMA NEGATI VE negati ve Not Available [facility] ([facility]) [address] [place], [address], 01/16/2017 07:06:57 01/12/20 17 01/13/2017 bacte rial vagin osis + vagin itis panel , vagin al neisseria gonorrhoeae, ZULMA NEGATI VE negati ve Not Available [facility] ([facility]) [address] [place], [address], 01/16/2017 07:06:57 01/12/20 17 01/14/2017 bacte rial vagin osis + vagin itis panel , vagin al yaakov albicans, ZULMA NEGATI VE negati ve Not Available [facility] ([facility]) [address] [facility], [place], [address], 01/16/2017 07:06:57 01/12/20 17 01/14/2017 bacte rial [...] IS NOT NECES CARSON. Not Available [facility] ([facility]) [address] [place], [address], 01/16/2017 07:06:57 01/12/20 17 01/15/2017 bacte rial vagin osis + vagin itis panel , vagin al atopobium vaginae LOW - 0 score Not Available [facility] ([facility]) [address] [place], [address], 01/16/2017 07:06:57 01/12/20 17 01/15/2017 bacte rial vagin osis + vagin itis panel , vagin al bvab 2 LOW - 0 score Not Available [facility] ([facility]) [address] [place], [address], 01/16/2017 07:06:57 01/12/20 17 01/15/2017 bacte rial [...] IS NOT NECES CARSON. Not Available [facility] ([facility]) [address] [place], [address], 01/16/2017 07:06:57 01/14/20 17 01/14/2017 CBC w/ auto diff WBC 7.9 x10e3 /uL 3.4-10 .8 Not Available [facility] ([facility]) [address] [place], [address], 01/14/2017 07:13:04 01/14/20 17 01/14/2017 CBC w/ auto diff RBC 4.33 x10e6 /uL 3.77-5 .28 Not Available [facility] ([facility]) [address] [place], [address], 01/14/2017 07:13:04 01/14/20 17 01/14/2017 CBC w/ auto diff hemoglobin 10.6 g/dL 11.1-1 5.9 below low normal Not Available [facility] ([facility]) [address] [place], [address], 01/14/2017 07:13:04 01/14/20 17 01/14/2017 CBC w/ auto diff hematocrit 33.5 % 34.0-4 6.6 below low normal Not Available [facility] ([facility]) [address] [place], [address], 01/14/2017 07:13:04 01/14/20 17 01/14/2017 CBC w/ auto diff MCV 77 fL 79-97 below low normal Not Available [facility] ([facility]) [address] [place], [address], 01/14/2017 07:13:04 01/14/20 17 01/14/2017 CBC w/ auto diff MCH 24.5 pg 26.6-3 3.0 below low normal Not Available [facility] ([facility]) [address] [place], [address], 01/14/2017 07:13:04 01/14/20 17 01/14/2017 CBC w/ auto diff MCHC 31.6 g/dL 31.5-3 5.7 Not Available [facility] ([facility]) [address] [place], [address], 01/14/2017 07:13:04 01/14/20 17 01/14/2017 CBC w/ auto diff RDW 15.9 % 12.3-1 5.4 above high normal Not Available [facility] ([facility]) [address] [place], [address], 01/14/2017 07:13:04 01/14/20 17 01/14/2017 CBC w/ auto diff platelets 331 x10e3 /uL 150-37 9 Not Available [facility] ([facility]) [address] [place], [address], 01/14/2017 07:13:04 01/14/20 17 01/14/2017 CBC w/ auto diff neutrophils 69 % Not Available [facility] ([facility]) [address] [facility], [place], [address], 01/14/2017 07:13:04 01/14/20 17 01/14/2017 CBC w/ auto diff lymphs 23 % Not Available [facility] ([facility]) [address] [place], [address], 01/14/2017 07:13:04 01/14/20 17 01/14/2017 CBC w/ auto diff monocytes 7 % Not Available [facility] ([facility]) [address] [place], [address], 01/14/2017 07:13:04 01/14/20 17 01/14/2017 CBC w/ auto diff eos 1 % Not Available [facility] ([facility]) [address] [place], [address], 01/14/2017 07:13:04 01/14/20 17 01/14/2017 CBC w/ auto diff basos 0 % Not Available [facility] ([facility]) [address] [place], [address], 01/14/2017 07:13:04 01/14/20 17 01/14/2017 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 0 Not Available [facility] ([facility]) [address] [place], [address], 01/14/2017 07:13:04 01/14/20 17 01/14/2017 CBC w/ auto diff lymphs (absolute) 1.8 x10e3 /uL 0.7-3. 1 Not Available [facility] ([facility]) [address] [place], [address], 01/14/2017 07:13:04 01/14/20 17 01/14/2017 CBC w/ auto diff monocytes(ab solute) 0.5 x10e3 /uL 0.1-0. 9 Not Available [facility] ([facility]) [address] [facility], [place], [address], 01/14/2017 07:13:04 01/14/20 17 01/14/2017 CBC w/ auto diff eos (absolute) 0.1 x10e3 /uL 0.0-0. 4 Not Available [facility] ([facility]) [address] [facility], [place], [address], 01/14/2017 07:13:04 01/14/20 17 01/14/2017 CBC w/ auto diff baso (absolute) 0.0 x10e3 /uL 0.0-0. 2 Not Available [facility] ([facility]) [address] [place], [address], 01/14/2017 07:13:04 01/14/20 17 01/14/2017 CBC w/ auto diff immature granulocytes 0 % Not Available [facility] ([facility]) [address] [place], [address], 01/14/2017 07:13:04 01/14/20 17 01/14/2017 CBC w/ auto diff immature grans (abs) 0.0 x10e3 /uL 0.0-0. 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 Not Available [facility] ([facility]) [address] [facility], [place], [address], 01/14/2017 07:13:04 09/05/20 17 09/07/2017 bacte rial vagin osis + vagin itis panel , vagin al trich vag by ZULMA Negati ve negati ve Not Available [facility] ([facility]) [address] [facility], [place], [address], 09/08/2017 07:14:52 09/05/20 17 09/07/2017 bacte rial vagin osis + vagin itis panel , vagin al chlamydia trachomatis, ZULMA Negati ve negati ve Not Available [facility] ([facility]) [address] [facility], [place], [address], 09/08/2017 07:14:52 09/05/20 17 09/07/2017 bacte rial vagin osis + vagin itis panel , vagin al neisseria gonorrhoeae, ZULMA Negati ve negati ve Not Available [facility] ([facility]) [address] [facility], [place], [address], 09/08/2017 07:14:52 09/05/2009/08/2017 bacte rial vagin osis + vagin itis panel , vagin al atopobium vaginae Low - 0 score Not Available [facility] ([facility]) [address] [facility], [place], [address], 09/08/2017 07:14:52 09/05/2009/08/2017 bacte rial vagin osis + vagin itis panel , vagin al bvab 2 Low - 0 score Not Available [facility] ([facility]) [address] [place], [address], 09/08/2017 07:14:52 09/05/20 17 09/08/2017 bacte rial [...] e lesli cteri stics deter mined by [facility]. It has not been clear ed or appro gibson by the Food and Drug Admin istra tion. The FDA has deter mined that such clear ance or appro areli is not neces carson. Not Available [facility] ([facility]) [address] [facility], [place], [address], 09/08/2017 07:14:52 09/05/2009/08/2017 bacte rial vagin osis + vagin itis panel , vagin al yaakov albicans, ZULMA Negati ve negati ve Not Available [facility] ([facility]) [address] [place], [address], 09/08/2017 07:14:52 09/05/20 17 09/08/2017 bacte rial vagin osis + vagin itis panel , vagin al yaakov glabrata, ZULMA Negati ve negati ve This test was devel oped and its perfo rmanc e lesli cteri stics deter mined by [facility]. It has not been clear ed or appro gibson by the Food and Drug Admin istra tion. The FDA has deter mined that such clear ance or appro areli is not neces carson. Not Available [facility] ([facility]) [address] [facility], [place], [address], 09/08/2017 07:14:52 09/05/20 17 09/07/2017 pap, IG + refle x HR HPV (16+1 8) diagnosis: Commen t NEGAT JUAN C FOR INTRA EPITH ELIAL LESIO N AND SHAKIR LIU . Not Available [facility] ([facility]) [address] [facility], [place], [address], 09/09/2017 07:12:27 09/05/20 17 09/07/2017 pap, IG + refle x HR HPV (16+1 8) specimen adequacy: Kisha telles Satis facto ry for evalu ation . Endoc ervic al and/o r squam ous metap lasti c cells (endo cervi marla compo nent) are prese nt. Not Available [facility] ([facility]) [address] [facility], [place], [address], 09/09/2017 07:12:27 09/05/20 17 09/07/2017 pap, IG + refle x HR HPV (16+1 8) clinician provided ICD10: Kisha telles Z01.4 19 Not Available [facility] ([facility]) [address] [place], [address], 09/09/2017 07:12:27 09/05/20 17 09/07/2017 pap, IG + refle x HR HPV (16+1 8) performed by: Torres Gates (ASCP ) Not Available [facility] ([facility]) [address] [facility], [place], [address], 09/09/2017 07:12:27 09/05/20 17 09/07/2017 pap, IG + refle x HR HPV (16+1 8) . . Not Available [facility] ([facility]) [address] [place], [address], 09/09/2017 07:12:27 09/05/20 17 09/07/2017 pap, IG [...] ts do occur . Not Available [facility] ([facility]) [address] [place], [address], 09/09/2017 07:12:27 09/05/20 17 09/07/2017 pap, IG + refle x HR HPV (16+1 8) test methodology: Commen t This liqui d based ThinP rep(R ) pap test was scree ashley with the use of an image guide nader herzog. Not Available [facility] ([facility]) [address] [facility], [place], [address], 09/09/2017 07:12:27 09/05/20 17 09/08/2017 pap, IG + refle x HR HPV (16+1 8) HPV, high-risk Negati ve negati ve This high- risk HPV test detec ts thirt een high- risk types (16/1 8/31/ 33/35 /39/4 5/51/ 52/56 /58/5 9/68) witho ut diffe renti ation . Not Available [facility] ([facility]) [address] [place], [address], 09/09/2017 07:12:27 10/21/20 16 10/21/2016 US, obste tric, bioph ysica l profi le No observ ation record ed. [address] [place], [address], 10/24/2016 10:34:08 10/21/20 16 10/21/2016 US, obste tric, bioph ysica l profi le No observ ation record ed. [address] [place], [address], 10/24/2016 10:34:09 10/24/20 16 10/21/2016 US, obste tric, bioph ysica l profi le No observ ation record ed. [address] [place], [address], 10/25/2016 09:09:33 10/25/20 16 10/24/2016 US, obste tric, bioph ysica l profi le No observ ation record ed. [address] [place], [address], 10/26/2016 10:03:21 10/25/20 16 10/24/2016 US, obste tric, bioph ysica l profi le No observ ation record ed. [address] [place], [address], 10/26/2016 02:34:28 10/28/20 16 10/27/2016 US, obste tric, bioph ysica l profi le No observ ation record ed. [address] [place], [address], 10/29/2016 18:44:02 10/31/20 16 10/27/2016 US, obste tric, follo w-up No observ ation record ed. [address] [place], [address], 10/31/2016 18:48:37 11/01/20 16 10/31/2016 US, obste tric, bioph ysica l profi le No observ ation record ed. [address] [place], [address], 11/01/2016 16:54:00 11/03/20 16 11/03/2016 US, obste tric, bioph ysica l profi le + non-s tress test No observ ation record ed. [address] [place], [address], 11/04/2016 19:56:34 11/08/20 16 11/08/2016 US, obste tric, follo w-up No observ ation record ed. [email or web address] [address] [place], [address], 11/16/2016 09:17:14 11/08/20 16 11/08/2016 US, obste tric, bioph ysica l profi le + non-s tress test No observ ation record ed. [address] [place], [address], 11/09/2016 09:04:59 11/10/20 16 11/10/2016 US, obste tric, bioph ysica l profi le + non-s tress test No observ ation record ed. [address] [place], [address], 11/11/2016 08:26:27 11/10/20 16 11/10/2016 US, obste tric, bioph ysica l profi le No observ ation record ed. [address] [place], [address], 11/11/2016 08:26:28 11/15/19 17 11/10/2016 US, obste tric, bioph ysica l profi le + non-s tress test No observ ation record ed. [address] [place], [address], 11/16/2016 06:25:51 11/16/19 17 11/15/2016 US, obste tric, bioph ysica l profi le + non-s tress test No observ ation record ed. [address] [place], [address], 11/18/2016 13:57:20 11/17/19 17 11/17/2016 US, obste tric, bioph ysica l profi le + non-s tress test No observ ation record ed. [address] [place], [address], 11/18/2016 13:57:21 Result Notes None recorded. 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 PT STILL REFUSED Merline Yogesh canales null, [facility] 7 15:20:51 Recommend ation refused Active 2015 PATIENT REFUSE TO GET 24 HOUR URINE DONE , SHE SSID SHE HAS DONE THEM BEFORE AND DOES NOT WANT TO DO ANYMORE, I TOLD PT HOW IMPORTSNT IT IS TO COMPLETE HER PIH LABS, SO THAT SHE CAN BE EVALUATED PROPERLY. PT STILL REFUSED Merline Yogesh jackson, [place] - [facility] 7 15:20:51 Problem Notes None recorded. Procedures Surgical History Date Name Laterality Status Provider Name and Address Organization Details Recorded Time 7 Date of Last Pap Smear completed Radha Vance MA [facility] 09/05/2017 15:54:43 7 Caesarean Section completed Radha Vance MA [facility] 09/05/2017 16:01:17 Imaging Results None recorded. Procedure Notes None recorded. Medical Equipment None [...] No t Available Vitals Date Recorded Body weight Provider Name an d Address Organization Details Last Updated DateTime 11/30/2016 275667.509821 g Evelyn Weber MA [place] - [facility] 11/30/2016 10:22:00 Date Recorded Body height Body mass index (BMI) Systolic And Diastolic Provider Name and Address Organization Details Last Updated DateTime 11/30/2016 162.56 cm 53.4 kg/m2 128/86 mm[Hg] Vilma Colbert MA [facility] 11/30/2016 09:40:52 Date Recorded Body height Body weight Body mass index (BMI) Systolic And Diastolic Provider Name and Address Organization Details Last Updated DateTime 01/11/2017 162.56 cm 911173.25 g 50.1 kg/m2 132/76 mm[Hg] Marissa Lin RN [facility] 01/11/2017 15:09:36 Date Recorded Body height Body weight Body mass index (BMI) Systolic And Diastolic Provider Name and Address Organization Details Last Updated DateTime 01/13/2017 162.56 cm 051770.97 g 50.1 kg/m2 138/76 mm[Hg] Marissa Lin RN [facility] 01/13/2017 15:52:40 Date Recorded Body height Body mass index (BMI) Body weight Systolic And Diastolic Provider Name and Address Organization Details Last Updated DateTime 09/05/2017 162.56 cm 48.6 kg/m2 705556.64 g 126/78 mm[Hg] Radha Vance MA [facility] 09/05/2017 15:59:44 Date Recorded Body weight Provider Name an d Address Organization Details Last Updated DateTime 11/08/2016 976095.58229 g Sera Lynn MD Attn: Accounting,[address] [place], [address], [facility] 11/08/2016 16:51:31 Date Recorded Body height Body mass index (BMI) Systolic And Diastolic Provider Name and Address Organization Details Last Updated DateTime 11/08/2016 162.56 cm 55.8 kg/m2 152/92 mm[Hg] Evelyn Weber MA [facility] 11/08/2016 16:39:49 Social History Question Answer Notes LastModified by Organizat ion Details LastModified Time Tobacco Smoking Status Current Every Day Smoker Vilma Colbert MA null, [facility] 11/01/2016 16:05:28 Do You Have An Advance Directive? No Information not available 11/01/2016 If You Are [...] None Information not available 11/01/2016 Are You Deaf Or Do You Have Serious Difficulty Hearing? No Information not available 11/01/2016 What Type Of Diet Are You Following? REGULAR Information not available 11/01/2016 Which Illicit Or Recreational Drugs Have You Used? None Information not available 11/01/2016 Education 4 Year College Information not available 11/01/2016 Have There Been [...] Tobacco? 5 knealma Information not available 09/05/2017 Do You Have Difficulty Walking Or Climbing Stairs? No Information not available 11/01/2016 Sex: Unknown Functional Status Question Answer Note LastModified by Organizat ion Details LastModified Time What is your level of alcohol consumption? None Information not available 11/01/2016 Are you currently employed? No Information not available 11/01/2016 Do you have difficulty doing errands alone? No Information not available 11/01/2016 What is your occupation? unemployed Information not available 11/01/2016 Do you have [...] Problems N Kidney or Bladder Problems N Lung Disease N GI Problems N Depression N Blood Clots N Acne N Breast Problem N Eating Disorder N Anemia N Anesthesia Complications N Headaches/Migraines N Ovarian Cancer N Diabetes N Anxiety Disorder N Muscle, Joint, or Bone Problems N [...] SNOMED-CT Code Diagnosis ICD10 Code Diagnosis Note [id number] MD Anthony William ([facility] [address]) [address] [facility] [place] [address] 09/09/2016 12:23:01 09/10/2016 16:29:05 Increased blood pressure 01124005 R03.0 Normal 7863187 2 Z34.90 Third trim piper 58185538 Z3A.30 [id number] MD Anthony William ([facility] 122) [address] [facility] [place] [address] [place] [address] 09/28/2016 12:01:06 09/29/2016 11:25:21 Normal 08819626 Z34.90 [id number] MD Anthony William ([facility] [address]) [address] [facility] [place] [address] [place] [address] 10/10/2016 15:15:58 10/11/2016 09:05:12 Normal 93726632 Z34.90 [id number] MD Anthony William ([facility] [address]) [address] [facility] [place] [address] [place] [address] 10/18/2016 14:14:39 10/18/2016 19:14:03 Normal 19459033 Z34.90 [id number] MD Anthony William ([facility] [address]) [address] [facility] [place] [address] [place] [address] 10/25/2016 16:11:49 10/27/2016 09:13:28 Normal 14298879 Z34.90 [id number] MD Anthony William ([facility] [address]) [address] [facility] [place] [address] [place] [address] 11/01/2016 15:51:52 11/03/2016 09:19:22 Normal 20469411 Z34.90 - induced hypertension 07619379 O13.9 [id number] MD Anthony William ([facility] [address]) [address] [facility] [place] [address] [place] [address] 11/08/2016 16:30:35 11/08/2016 18:12:27 Normal 17602730 Z34.90 Mild pre-eclampsia 50288 007 O14.03 [id number] MD Anthony William ([place] [address]) [address] [facility] [place] [address] [place] [address] 11/30/2016 09:13:31 11/30/2016 10:49:[address] Dickerson office called and patient went there with child and scored a 11 on the depression screening. management 278 482524 Z39.1 [id number] MD Anthony William ([place] [address]) [address] [facility] [place] [address] [place] [address] 01/11/2017 14:57:57 02/08/2017 08:48:[address] Dickerson office called and patient went there with child and scored a 11 on the depression screening. Vaginal discharge 089497 006 N89.8 Uses oral contraception [id number] Z30.41 [id number] MD Anthony William ([place] [address]) [address] [facility] [place] [address] [place] [address] 01/13/2017 15:41:19 01/13/2017 17:49:18 Menorrhagia 308449972 N92.0 [id number] MD Anthony William ([place] [address]) [address] [facility] [place] [address] [place] [address] 09/05/2017 15:44:40 09/05/2017 17:50:30 Gynecologic examination 92434771 Z01.419 Venereal d isease screening 527725594 Z11.3 Health Concerns Section Related Observation LastModified by Organization Detai ls LastModified Time None Recorded Concern Status LastModified by Organization Details LastModified Time None Recorded Advance Directives Directive N: Payers Encounter Date Sequence Insurance Name Policy Number Policy Tran Covered Member ID Tran Member ID Guarantor Name 11/08/2016 1 FORMERLY [facility] (MEDICAID HMO) Nubia Lazar [id number] Nubia Andreseninga 11/30/2016 1 FORMERLY [facility] (MEDICAID HMO) Nubia Campsoeninga [id number] Nubia Andreseninga 01/11/2017 1 FORMERLY [facility] (MEDICAID HMO) Nubia Camposeninga [id number] Nubia Camposeninga 01/13/2017 1 FORMERLY [facility] (MEDICAID HMO) Nubia Lazar [id number] Nubia Lazar 09/05/2017 1 FORMERLY [facility] (MEDICAID HMO) Nubia Lazar [id number] Nubia Lazar Notes Date Note Type Note Provider Name and Address Organization Details Recorded Time 11/30/2016 text/html Patient is here for removal of vlad s/p primary low transverse section on 11/22/2016. Vilma Colbert MA [facility], [facility] 11/30/2016 11:47:49 01/11/2017 text/html VisitReported bypatient.Onset/Max ng:date of delivery: (11/22/2016) Quality:primary LST C/S Context:complication s of : PIH; complications of labor: arrest of descent; good support from partner/family Associated Symptoms:no abnormal bleeding; no pelvic pain; laceration well healed; no constipation; no fecal incontinence; no dysuria; no urinary incontinence; no fever; no problems; no mastitis Sera Lynn MD Attn: Accounting,[address] [place], [address], [facility] 02/07/2017 15:02:52 01/13/2017 text/html Patient is here [...] conception. Sera Lynn MD Attn: Accounting[address] [place], [address], [facility] 01/13/2017 17:49:09 09/05/2017 text/html Annual GYNReport ed [...] typing Sera Lynn MD Attn: Accounting,[address], [place], [address], [place] [facility] 09/05/2017 17:50:19 OBGyn Episode Ob Episode Information Episode Created Date Number of Fetuses Patient Bloodtype Patient rh Status Prepregnancy Weight lbs Domestic Partner Domestic Partner Phone Father Name Discharge Rn Status 09/09/20 16 1 O Positive CLOSED Fetus Data First Name Last Name Admitted to NICU Weight (g) Sex Living Outcome Pediatric Complications Fetus ID Race Codes Race Delivery Type Mirian Radha ne false 4252.42 5 F true Full Term [id number] White Problems Problem Notes patient was adopted Problem Name Start Date End Date Resolution Snomed Code Not e Recommendation refused 11/02/2016 [id number] PATIENT REFUSE TO GET 24 HOUR URINE [...] Type Weight in lbs Pre/Post Dialysis Refused 315.295971080377 BP Diastolic BP Location Tested BP Systolic BP Type 102 160 90 138 Fetus Heart Rate Present A 150 Fetus Movement A Yes Comments Patient is being seen by me for the first ob visit. Patient had been receiving care at [facility]. BP was noted. Patient denies headaches, blurring [...] Type Weight in lbs Pre/Post Dialysis Refused 317.276309368604 BP Diastolic BP Location Tested BP Systolic BP Type 74 128 Fetus Heart Rate Present A 154 Present Fetus Movement A Yes Comments Patient offers no complaints . [facility] is larger than [facility]. Will obtain OB US for interval growth. GBS culture to be done during next visit. labor precautions were given. Flowsheet Date 10/10/2016 Gong Score Blood Edema Fundus Height Fundus Units Glucose Ketones Leukocytes Nitrite Labor Signs Protein Cervic Dilation Cervic Effacement Cervic Station 2+ none negative trace Type Weight in lbs Pre/Post Dialysis Refused 321.832308026177 BP Diastolic BP Location Tested BP Systolic BP Type 104 140 Fetus Heart Rate Present A Present Fetus Movement A Yes Comments BP noted. Patient denies hea daches blurring of vision or epigastric pain. Patient was instructed to go to labor and delivery at [facility] for pre-eclampsia labs and biophysical profile. labor precautions were given. GBS culture was sent. Flowsheet Date 10/18/2016 Gong Score Blood Edema Fundus Height Fundus Units Glucose Ketones Leukocytes Nitrite Labor Signs Protein Cervic Dilation Cervic Effacement Cervic Station trace 41 neg 0cm 50% -3 Type Weight in lbs Pre/Post Dialysis Refused 322.715204347856 BP Diastolic BP Location Tested BP Systolic [...] Type Weight in lbs Pre/Post Dialysis Refused 322.628521428129 BP Diastolic BP Location Tested BP Systolic [...] Type Weight in lbs Pre/Post Dialysis Refused 319.194441260479 BP Diastolic BP Location Tested BP Systolic [...] Type Weight in lbs Pre/Post Dialysis Refused 325.318018729452 BP Diastolic BP Location Tested BP Systolic [...] Type Weight in lbs Pre/Post Dialysis Refused 311.533982606947 BP Diastolic BP Location Tested BP Systolic BP Type 86 128 sitting Fetus Heart Rate Present Fetus Movement Comments Menstrual History Last Menstrual Date Menses Monthly On Bcp Conception Prior Menses Frequency Hcg Plus Date Menarche Onset Age 0302/06/2016 Genetic Screening And Infection History Question Response Note Patient's Age Will Be 35 Years Or Older At Estim ated Date of Delivery false Thalassemia (Cameroonian, Guinean, Mediterranean, Or Background): MCV < 80 false Neural Tube Defect (Meningomyelocele, Spina Bifi da, Or Anencephaly) false Congenital Heart Defect false Down Syndrome false Jose-Sachs (eg, Islam, Cajun, Bolivian-Mitchell) f alse Deborah Disease false Sickle Cell Disease Or Trait () false Hemophilia Or Other Blood Disorders false Muscular Dystrophy false Cystic Fibrosis false Tehama's Chorea false Mental Retardation/Autism false If Yes, [...]
--- OUTSIDE RECORDS SUMMARY | 2025-04-08 00:30 | XMS_ITS | Patient Health Record ---
Author Organization [facility] brie Address [address] [place] [address] Care Team Providers Care Family Services Assistant Name Role Phone Deepa Taylor Unavailable [phone] Reason For Referral No Information Medications Medication SIG (Take, Route, Frequency, Duration) Notes Start Date End Date Status Plaquenil 200 MG take 1 tablet (200 mg) by oral route 2 times per day Oral 2 Active buPROPion HCl 450 mg take 1 tablet (450 mg) by oral route once daily swallowing whole. Do not crush, chew and/or divide. oral 1 *Pick strength-form from [employer] for eRX* Active Humira Pen 40 mg/0.8 [...] Insured Coverage Start Date Coverage End Date [facility] [address] ADELINA Sheffield [id number] Nubia Lazar Self - patient is the insured Medical (General) History Surgical History Surgery Date(Month/Year) cholecystectomy; 2020-07-15 C section; 2020-07-15 ACL repair; 2020-07-15 breast lump; 2020-07-15
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
--- OUTSIDE RECORDS SUMMARY | 2025-04-08 00:31 | XMS_ITS | Clinical Summary ---
Author Organization [facility] Address [address] [place] [address] Care Team Providers Care Blueprint Clerk Name Role Phone CullenalisiaMalissa Primary Care Provider Unavailabl e Source Comments [facility],non-owned Affiliates and Associated Physician Practices is amultiple site organization consisting of ambulatory clinics and hospital sitesin [place], [place], [place] and [place]. This disclosure is being madepursuant to the Care Everywhere program and may not contain all information available regarding this patient. Last updated 18.[facility] Allergies Active Allergy Reactions Criticality Noted Date [...] on file Legal Sex Female 5:44 AM POSTAL CARRIER Gender Identity Not on file Sexual Orientation Not on file Last Filed Vital Signs Vital Sign Reading Time Taken Comments Blood Pressure 124/80 01/02/2017 2:20 PM POSTAL CARRIER Pulse 93 01/02/2017 2:20 PM POSTAL CARRIER Temperature 36.8 C (98.3 F) 01/02/2017 2:20 PM POSTAL CARRIER Respiratory Rate 20 01/02/2017 2:20 PM POSTAL CARRIER Oxygen Saturation 97% 01/02/2017 2:20 PM POSTAL CARRIER Inhaled Oxygen Concentration - - Weight 131.5 kg (290 lb) 01/02/2017 2:20 PM POSTAL CARRIER Height 160 cm (5' 3 ) 01/02/2017 2:20 PM POSTAL CARRIER Body Mass Index 51.37 01/02/2017 2:20 PM POSTAL CARRIER Plan of Treatment Health Maintenance Due Date [...] patient's age to complete this topic Insurance [facility] MEDICAID - OUT OF STATE Care Teams Blueprint Clerk Relationship Specialty Start Date End Date Malissa Zamora Update Information PCP - General 04/24/19
--- OUTSIDE RECORDS SUMMARY | 2025-04-08 00:31 | XMS_ITS | Clinical Summary ---
Author Organization [facility] Address [address] [place] [address] Care Team Providers Care Floor Sanding Machine Operator Name Role Phone Marissa Parrish MD Primary Care Provider [phone] Allergies Active Allergy Reactions Criticality Noted Date [...] 19+ 3-dose series) 2008 HPV/Cotest (21-29) 2010 CERVICAL CANCER SCREENING 2019 HPV/Cotest (30-65) 2019 PAP SMEAR 2019 INFLUENZA VACCINE (#1) 2024 HPV VACCINES Aged Out No longer eligi ble based on patient's age to complete this topic Care Teams Floor Sanding Machine Operator Relationship Specialty Start Date End Date Marissa Parrish MD PCP - General Family Practice 10/29/15
[2025-04-08 13:22] VITALS: BP 138/90; PULSE 70; RESP 18; TEMP 36.1; O2SAT 99
[2025-04-08 13:31] LABS: BEDSIDEPREGUCG Negative (Negative)
[2025-04-08] MEDS: LACTATED RINGERS 1,000 ML 150 ML IV CONT (13:40)
--- NOTE | 2025-04-08 13:55 | P.PNAN_ITS ---
Anes - Initial Pre Proc Eval Procedure: Operation Date: 04/08/25 14:30 Proposed Procedures p Esophagogastroduodenoscopy - Nino Bond MD Date/Time: 04/08/25 13:55 Surgeon: Nino Bond MD Pre Op Diagnosis: Abnormal immunological findings in specimens from Patient Data Age: 34 Gender: F Height: 1.6 m Weight: 122.5 kg Last Vital Signs Temp 97 F L 04/08/25 13:22 Pulse 70 04/08/25 13:22 Resp 18 04/08/25 13:22 BP 138/90 04/08/25 13:22 Pulse Ox 99 04/08/25 13:22 O2 Del Method Room Air 04/08/25 13:22 Allergies Allergy/AdvReac Type Severity Reaction Status Date / Time human papillomavirus Allergy Unknown Rash Verified 04/08/25 13:20 vaccine, quadr lamotrigine Allergy Unknown Unknown Verified 04/08/25 13:20 Sulfa (Sulfonamide Allergy Unknown Rash Verified 04/08/25 13:20 Antibiotics) tetanus and diphtheria Allergy Unknown Unknown Verified 04/08/25 13:20 toxoids fruit, all except oranges, Allergy Severe Other Uncoded 04/08/25 13:20 okay for fruit sauce/canned Home Medications ?Medication ?Instructions ?Recorded ?Confirmed ?Type buspirone 5 mg tablet 10 mg (2 x 5 mg) PO TID PRN 03/12/24 04/02/25 Rx anxiety #60 tabs albuterol sulfate 90 mcg/actuation 2 puff inhalation QID PRN 10/01/24 04/02/25 Rx aerosol inhaler shortness of breath or wheezing #8 grams norethindrone 1.5 mg-ethinyl 1 tablet PO DAILY #84 tabs 12/30/24 04/08/25 Rx estradiol 30 mcg(21)/iron 75 mg(7) tablet (Loestrin Fe 1.5/30 (28-Day)) ondansetron 4 mg disintegrating 4 mg PO Q8H PRN nausea and 01/23/25 04/02/25 Rx tablet vomiting #7 tabs duloxetine 30 mg capsule,delayed 30 mg PO DAILY #90 caps 02/05/25 04/08/25 Rx release fluticasone 500 mcg-salmeterol 50 1 inh inhalation Q12H #60 ea 02/05/25 04/08/25 Rx mcg/dose blistr powdr for inhalation (Advair Diskus) gabapentin 300 mg capsule 300 mg PO BID #180 caps 02/05/25 04/08/25 Rx cholecalciferol (vitamin D3) 25 25 mcg PO DAILY #90 caps 02/06/25 04/08/25 Rx mcg (1,000 unit) capsule ferrous gluconate 324 mg (37.5 mg 324 mg PO DAILY #90 tabs 02/06/25 04/08/25 Rx iron) tablet hearing aids #1 ea 02/26/25 Rx famotidine 20 mg tablet (Pepcid) 20 mg PO DAILY #90 tabs 03/05/25 04/08/25 Rx metformin 500 mg tablet,extended See Rx Instructions PO BID #180 04/02/25 04/08/25 Rx release 24 hr tabs Laboratory Tests 04/08/25 13:22 POC Urine HCG, Qual Negative (Negative) Patient hx anesthesia problems: none Family hx anesthesia problems: none Results Review: All pre-operative results and documents have been reviewed as part of the pre- operative evaluation. [facility] Past Medical History Medical History Gallstone pancreatitis Vaginismus Hidradenitis Yeast vaginitis Bartholin's gland abscess Low back pain Muscle strain of left upper back Libido, decreased Hidradenitis suppurativa Seronegative rheumatoid arthritis of multiple sites (~11/2016) SAPHO syndrome (~11/2016) Synovitis, acne, pustulosis, hyperostosis, osteitis (SAPHO) syndrome is a rare chronic inflammatory disorder of bone, joint, and skin characterized by synovitis, osteitis, hyperostosis, and enthesitis, typically with pain, swelling, and tenderness in affected areas. Pustulosis palmaris et plantaris Bilateral carpal tunnel syndrome Surgical History Surgical History History of repair of anterior cruciate ligament of left knee Previous section History of cholecystectomy Family History Family History Grandparent Diabetes mellitus Family history of cardiovascular disease Father Hypertension Family history of elevated blood lipids Social History Social History Smoking packs per day: 0.5 Smoking cigarettes per day: 10.0 Years smoked: 6 Smoking pack-years: 3.00 Smoking status: Current every day smoker Tobacco type: cigarettes Alcohol intake: current Alcohol use details: rare Substance use: current Substance use type: marijuana Other substance usage details: DAILY Last use: yesterday Do You Feel Safe in your Home?: Yes Lack of Transportation: No Lack of Food: Sometimes True Current Housing: I Have Housing Concerned About Future Housing: No Difficulty Paying Gas/Electric Bills: No Difficulty Paying for Meds: No Currently Unemployed: No Education: Bachelor's Degree Difficulty w/ Childcare or Family Care: No Living arrangements: with family Gender identity (if verbalized by the patient): Female Anes - Eval Final PreProcedure Day of Procedure 04/08/25 13:55 Patient weight: normal and morbidly obese Heart: regular rate and rhythm Lungs: clear to auscultation Airway: Mallampati scale class II Neurological: alert and oriented Last oral intake: >/= 8 hours ASA classification: III Emergent: no Anesthetic plan: proceed Anesthesia type and monitoring: general GIVS and standard monitoring Results Review: All pre-operative results and documents have been reviewed as part of the pre- operative evaluation. Informed Consent: The patient's anesthetic plan and its attendant risks and benefits were discussed with the patient/family/POA. Questions were solicited and answers provided to the satisfaction of the patient/family/POA.
[2025-04-08 14:07] LABS: Glucose Point of Care 82 mg/dl (65-105)
--- NOTE | 2025-04-08 14:13 | PM.HPGS ---
History of Present Illness History of Present Illness Consent: Risks, benefits, and alternatives have been discussed and questions answered. Patient agrees to proceed with procedure. 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 + Review of Systems Review of Systems: All systems reviewed & are unremarkable except as noted in HPI and below PMFSH Past Medical History Medical History (Updated 04/08/25 @ 14:13 by Nino Bond MD) IBS (irritable bowel syndrome) Gallstone pancreatitis Vaginismus Hidradenitis Yeast vaginitis Bartholin's gland abscess Low back pain Muscle strain of left upper back Libido, decreased Hidradenitis suppurativa Seronegative rheumatoid arthritis of multiple sites (~11/2016) SAPHO syndrome (~11/2016) Synovitis, acne, pustulosis, hyperostosis, osteitis (SAPHO) syndrome is a rare chronic inflammatory disorder of bone, joint, and skin characterized by synovitis, osteitis, hyperostosis, and enthesitis, typically with pain, swelling, and tenderness in affected areas. Pustulosis palmaris et plantaris Bilateral carpal tunnel syndrome Surgical History Surgical History History of repair of anterior cruciate ligament of left knee Previous section History of cholecystectomy Family History Family History Grandparent Diabetes mellitus Family history of cardiovascular disease Father Hypertension Family history of elevated blood lipids Social History Social History Smoking packs per day: 0.5 Smoking cigarettes per day: 10.0 Years smoked: 6 Smoking pack-years: 3.00 Smoking status: Current every day smoker Tobacco type: cigarettes Alcohol intake: current Alcohol use details: rare Substance use: current Substance use type: marijuana Other substance usage details: DAILY Last use: yesterday Do You Feel Safe in your Home?: Yes Lack of Transportation: No Lack of Food: Sometimes True Current Housing: I Have Housing Concerned About Future Housing: No Difficulty Paying Gas/Electric Bills: No Difficulty Paying for Meds: No Currently Unemployed: No Education: Bachelor's Degree Difficulty w/ Childcare or Family Care: No Living arrangements: with family Gender identity (if verbalized by the patient): Female Meds Home Medications and Allergies Home Medications ?Medication ?Instructions ?Recorded ?Confirmed ?Type buspirone 5 mg tablet 10 mg (2 x 5 mg) PO TID PRN 03/12/24 04/02/25 Rx anxiety #60 tabs albuterol sulfate 90 mcg/actuation 2 puff inhalation QID PRN 10/01/24 04/02/25 Rx aerosol inhaler shortness of breath or wheezing #8 grams norethindrone 1.5 mg-ethinyl 1 tablet PO DAILY #84 tabs 12/30/24 04/08/25 Rx estradiol 30 mcg(21)/iron 75 mg(7) tablet (Loestrin Fe 1.5/30 (28-Day)) ondansetron 4 mg disintegrating 4 mg PO Q8H PRN nausea and 01/23/25 04/02/25 Rx tablet vomiting #7 tabs duloxetine 30 mg capsule,delayed 30 mg PO DAILY #90 caps 02/05/25 04/08/25 Rx release fluticasone 500 mcg-salmeterol 50 1 inh inhalation Q12H #60 ea 02/05/25 04/08/25 Rx mcg/dose blistr powdr for inhalation (Advair Diskus) gabapentin 300 mg capsule 300 mg PO BID #180 caps 02/05/25 04/08/25 Rx cholecalciferol (vitamin D3) 25 25 mcg PO DAILY #90 caps 02/06/25 04/08/25 Rx mcg (1,000 unit) capsule ferrous gluconate 324 mg (37.5 mg 324 mg PO DAILY #90 tabs 02/06/25 04/08/25 Rx iron) tablet hearing aids #1 ea 02/26/25 Rx famotidine 20 mg tablet (Pepcid) 20 mg PO DAILY #90 tabs 03/05/25 04/08/25 Rx metformin 500 mg tablet,extended See Rx Instructions PO BID #180 04/02/25 04/08/25 Rx release 24 hr tabs Allergies Allergy/AdvReac Type Severity Reaction Status Date / Time human papillomavirus Allergy Unknown Rash Verified 04/08/25 13:20 vaccine, quadr lamotrigine Allergy Unknown Unknown Verified 04/08/25 13:20 Sulfa (Sulfonamide Allergy Unknown Rash Verified 04/08/25 13:20 Antibiotics) tetanus and diphtheria Allergy Unknown Unknown Verified 04/08/25 13:20 toxoids fruit, all except oranges, Allergy Severe Other Uncoded 04/08/25 13:20 okay for fruit sauce/canned Vital Signs Vital Signs - 24 hr 04/08/25 13:22 Temperature 97 F L Pulse Rate 70 Respiratory Rate 18 Blood Pressure 138/90 Pulse Oximetry 99 Oxygen Delivery Room Air Exam Const: General: comfortable and no acute distress HENMT: Face/Nose/Sinus: Normal nares present Eyes: General: appearance normal, both eyes and all related structures Neck: Neck: no JVD Resp: Auscultation: clear to auscultation bilaterally Cardio: Rate: regular rate Rhythm: regular rhythm GI: Inspection: non-distended GI Palp: Yes Soft to palpation Skin: General skin exam: normal color Neuro: General: gait normal Speech: normal speech Extrem: General: normal to inspection Psych: Mental Status: mental status grossly normal Assessment and Plan Assessment and plan (1) IBS (irritable bowel syndrome): Code(s): K58.9 - Irritable bowel syndrome, unspecified Status: Acute Assessment and Plan: egd to assess for celiac had HLA DQ2 + (more prevalent in patients with celiac but will get bx to confirm diagnosis)
[2025-04-08 14:27] VITALS: BP 124/100; PULSE 84; RESP 25; O2SAT 96
[2025-04-08 14:37] VITALS: BP 123/68; PULSE 62; RESP 17; O2SAT 99
[2025-04-08 14:47] VITALS: BP 114/80; PULSE 60; RESP 18; O2SAT 99
== END 2025-04-08 15:00 | disposition home or self-care (01) ==
PROVIDERS: Anesthesiology; PCP Family Medicine; Referring Provider Family Medicine; Visit Provider Internal Medicine Gastroenterology
PROC: 0DJ08ZZ Inspection of Upper Intestinal Tract, Via Natural or Artificial Opening Endoscopic (ICD-10-PCS; CPT 43239; principal; 2025-04-08 14:30)
DX: R89.4 Abnormal immunological findings in specimens from other organs, systems and tissues (principal); K58.9 Irritable bowel syndrome, unspecified; M06.09 Rheumatoid arthritis without rheumatoid factor, multiple sites; G56.03 Carpal tunnel syndrome, bilateral upper limbs; F17.210 Nicotine dependence, cigarettes, uncomplicated; F12.90 Cannabis use, unspecified, uncomplicated; E66.01 Morbid (severe) obesity due to excess calories; Z68.42 Body mass index [BMI] 45.0-49.9, adult; Z79.51 Long term (current) use of inhaled steroids; Z79.84 Long term (current) use of oral hypoglycemic drugs; Z98.890 Other specified postprocedural states; Z90.49 Acquired absence of other specified parts of digestive tract; Z87.898 Personal history of other specified conditions; Z87.19 Personal history of other diseases of the digestive system; Z82.49 Family history of ischemic heart disease and other diseases of the circulatory system
CPT/HCPCS: 43239; 82948; 88305; J2003; J2704; J7120

== ENCOUNTER 2025-05-29 07:35 | Outpatient (CLI) | payer OTHER, SELFPAY ==
--- OUTSIDE RECORDS SUMMARY | 2025-05-29 07:51 | XMS_ITS | Clinical Summary ---
Author Organization [facility] Address [address] [place] [address] Care Team Providers Care Vulcanizing Press Operator Name Role Phone Marissa Parrish MD [...] on file Legal Sex Female 7:51 PM COARSE WIRE DRAWER Gender Identity Female 07/13/2022 4:13 PM CDT [...] 1:02 PM CDT Height 160 cm (5' 3) 01/23/2025 1:02 PM CDT Body Mass Index [...] series) 04/16/2021 03/19/2021, 02/26/2021 Influenza Vaccine (#1) 2025 , 09/27/2019, 08/28/2017, Additional history exists HPV Vaccines Aged Out No longer eligi ble based on patient's age to complete this topic Insurance [facility] MEDICAID [facility] IDPA [facility] IDPA IDPA Care Teams Vulcanizing Press Operator Relationship Specialty Start Date End Date Marissa Parrish MD PCP - General 06/18/17
--- OUTSIDE RECORDS SUMMARY | 2025-05-29 07:51 | XMS_ITS | Clinical Summary ---
Author Organization [facility] Address [address] [place] [address] Phone Care Team Providers Care Observer Helper Name Role Phone Marissa Parrish MD Primary Care Provider [phone] Allergies Active Allergy Reactions Criticality Noted Date Comments Human Papillomavirus 4-Valent Recombinant Vaccine Rash 11/13/2018 Lamotrigine Rash 11/13/2018 Sulfa Antibiotics Rash 11/13/2018 [id number] Pertussis Other (see Comments) 11/13/2018 Chest pain [...] on file Legal Sex Female 4:40 PM TUNNEL KILN REPAIRER Gender Identity Not on file Sexual Orientation Not on file Last Filed Vital Signs Vital Sign Reading Time Taken Comments Blood Pressure 140/68 11/13/2018 5:45 PM TUNNEL KILN REPAIRER Pulse 98 11/13/2018 5:45 PM TUNNEL KILN REPAIRER Temperature 36.7 C (98 F) 11/13/2018 4:45 PM TUNNEL KILN REPAIRER Respiratory Rate 20 11/13/2018 4:45 PM TUNNEL KILN REPAIRER Oxygen Saturation 98% 11/13/2018 5:45 PM TUNNEL KILN REPAIRER Inhaled Oxygen Concentration - - Weight 131.5 kg (290 lb) 11/13/2018 4:45 PM TUNNEL KILN REPAIRER Height 160 cm (5' 3) 11/13/2018 4:45 PM TUNNEL KILN REPAIRER Body Mass Index 51.37 11/13/2018 4:45 PM TUNNEL KILN REPAIRER Plan of Treatment Not on file Insurance MEDICAID [facility] [employer] Care Teams Observer Helper Relationship Specialty Start Date End Date Marissa Parrish MD PCP - General Family Medicine 11/13/18
--- OUTSIDE RECORDS SUMMARY | 2025-05-29 07:51 | XMS_ITS | Referral Summary ---
Author Organization [facility] Address [address] [place] [address] Care Team Providers Care Outpatient Case Manager Name Role Phone Marissa Parrish MD [...] on file Legal Sex Female 7:51 PM STILL OPERATOR HELPER Gender Identity Female 07/13/2022 4:13 PM CDT [...] CDT Plan of Treatment Not on file Insurance [facility] MEDICAID [facility] IDPA IDPA Care Teams Outpatient Case Manager Relationship Specialty Start Date End Date Marissa Parrish MD PCP - General 06/18/17
--- OUTSIDE RECORDS SUMMARY | 2025-05-29 07:52 | XMS_ITS | Clinical Summary ---
Author Organization [facility] [employer] Address [address] [place] [address] Care Team Providers Care Credit Portfolio Manager Name Role Phone Malissa Zaomra Primary Care Provider Unavailabl e Source Comments [facility],non-owned Affiliates and Associated Physician Practices is amultiple site organization consisting of ambulatory clinics and hospital sitesin [place], [place], [place] and [place]. This disclosure is being madepursuant to the Care Everywhere program and may not contain all information available regarding this patient. Last updated 18.[facility] [employer] Allergies Active Allergy Reactions Criticality Noted Date [...] on file Legal Sex Female 5:44 AM ELECTRONICS TEACHER Gender Identity Not on file Sexual Orientation Not on file Last Filed Vital Signs Vital Sign Reading Time Taken Comments Blood Pressure 124/80 01/02/2017 2:20 PM ELECTRONICS TEACHER Pulse 93 01/02/2017 2:20 PM ELECTRONICS TEACHER Temperature 36.8 C (98.3 F) 01/02/2017 2:20 PM ELECTRONICS TEACHER Respiratory Rate 20 01/02/2017 2:20 PM ELECTRONICS TEACHER Oxygen Saturation 97% 01/02/2017 2:20 PM ELECTRONICS TEACHER Inhaled Oxygen Concentration - - Weight 131.5 kg (290 lb) 01/02/2017 2:20 PM ELECTRONICS TEACHER Height 160 cm (5' 3) 01/02/2017 2:20 PM ELECTRONICS TEACHER Body Mass Index 51.37 01/02/2017 2:20 PM ELECTRONICS TEACHER Plan of Treatment Health Maintenance Due Date Last Done Comments HIV SCREENING 2004 HEPATITIS C SCREENING 11/30/2007 DTAP/TDAP/TD VACCINES (1 - Tdap) 2008 HEPATITIS B VACCINE (1 of 3 - 19+ 3-dose series) 2008 PNEUMOCOCCAL VACCINE (1 of 2 - PCV) 2008 PAP SMEAR 2010 HPV VACCINE (1 - 3-dose SCDM series) 2016 COVID-19 VACCINE (1 - 2023-2 5 season) 2024 DEPRESSION SCREENING 11/13/2024 INFLUENZA VACCINE (#1) 2025 ZOSTER VACCINE (1 of 2) 2039 HIB VACCINE Aged Out No longer eligi ble based on patient's age to complete this topic MENINGOCOCCAL (Group B) VACC INE SHARED DECISION-MAKING Aged Out No longer eligibl e based on patient's age to complete this topic MENINGOCOCCAL GROUPS A/C/Y/W VACCINE Aged Out No longer eligible b ased on patient's age to complete this topic Insurance [employer] [facility] SELF PAY NO INSURANCE Member Subscriber Plan / Payer (Ef fective for All Dates) Name:Claude Rainesl Member ID:Not on file Relation to Subscriber:Not on file Name:DIANPANDAROB PersaudBONY Subscriber ID:Not on file Address: [address] [place] [id number] Payer ID:Not on file Group ID:Not on file Type:Self Pay Address: [place], [place] MEDICAID - OUT OF [facility] Care Teams Credit Portfolio Manager Relationship Specialty Start Date End Date Malissa Zamora Update Information PCP - General 04/24/19
--- OUTSIDE RECORDS SUMMARY | 2025-05-29 07:52 | XMS_ITS | Patient Health Record ---
Author Organization [facility] [employer] Address [facility] [facility] [address] [place] [address] Care Team Providers Care Change Control Coordinator Name Role Phone Miguel Monreal Unavailable [phone] Reason For Referral No Information Plan Of Treatment No Information
--- OUTSIDE RECORDS SUMMARY | 2025-05-29 07:52 | XMS_ITS | Patient Health Record ---
Author Organization [facility] Address [address] [place] [address] Care Team Providers Care Oil Burner Servicer And Installer Name Role Phone Deepa Taylor Unavailable [phone] Reason For Referral No Information Medications Medication SIG (Take, Route, Frequency, Duration) Notes Start Date End Date Status Plaquenil 200 MG take 1 tablet (200 mg) by oral route 2 times per day Oral 2 Active buPROPion HCl 450 mg take 1 tablet (450 mg) by oral route once daily swallowing whole. Do not crush, chew and/or divide. oral 1 *Pick strength-form from [employer] for e[employer]* Active Humira Pen 40 mg/0.8 [...] Insured Coverage Start Date Coverage End Date [facility] [address] ADELINA Sheffield [id number] [phone] [id number] Nubia Lazar Self - patient is the insured Medical (General) History Surgical History Surgery Date(Month/Year) cholecystectomy; 2020-07-15 C section; 2020-07-15 ACL repair; 2020-07-15 breast lump; 2020-07-15
--- OUTSIDE RECORDS SUMMARY | 2025-05-29 07:52 | XMS_ITS | Clinical Summary ---
Author Organization [facility] Address [address] [place] [address] Care Team Providers Care Salesperson Pianos And Organs Name Role Phone Marissa Parrish MD Primary [...] 4:02 PM CDT Height 157.5 cm (5' 2) 02/10/2016 1:49 PM CDT Body Mass Index 53.04 02/10/2016 1:49 PM CDT Plan of Treatment Health Maintenance Due Date Last Done Comments DTAP/TDAP/TD VACCINES (1 - Tdap) 2008 HEPATITIS B VACCINES (1 of 3 - 19+ 3-dose series) 2008 HPV/Cotest (21-29) 2010 CERVICAL CANCER SCREENING 2019 HPV/Cotest (30-65) 2019 PAP SMEAR 2019 INFLUENZA VACCINE (#1) 2025 HPV VACCINES Aged Out No longer eligi ble based on patient's age to complete this topic Care Teams Salesperson Pianos And Organs Relationship Specialty Start Date End Date Marissa Parrish MD PCP - General Family Practice 10/29/15
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
--- NOTE | 2025-06-23 11:56 | P.SLEEP_ITS ---
Sleep Study Date of Study: 05/29/25 Ordering Provider: Ana Lilia Piper DO Interpreting Physician: Terri Nolasco MD Sleep Study Type: Polysomnogram Height: 1.6 m Weight: 79.832 kg Body Mass Index: 31.1 Neck Circumference (inches): 15 [place]: 13 Reason for Sleep Study Hypersomnolence Sleep History Nubia Weiner is a 34-year-old woman with known obstructive sleep apnea, had moderately severe NELSON in 2019, was on CPAP 7 cm. She is not using CPAP now. She is extremely tired in the day, so sleepy that it is impossible to keep her eyes open, even while driving. At work she sometimes wakes up with her had drooping not even knowing that she was asleep. She rarely awakens from sleep short of breath. She occasionally wakes at night with heartburn, belching or coughing.??She occasionally snores, however nobody has complained recently about how loud she snores. She frequently has trouble sleeping when she has a cold. She rarely wakes up gasping for breath during the night. She never has breathing problems at night reported to her by someone else. She rarely sweats excessively at night. She never notices her heart pounding or beating irregularly during the night. She frequently falls asleep during the day. She frequently falls asleep involuntarily, occasionally falls asleep while driving. She never experiences loss of muscle tone with strong emotion. She never feels paralyzed on waking or falling asleep. She never experiences vivid dreams upon waking or falling asleep. She never feels afraid of going to sleep. She never has nightmares. She rarely recalls her dreams. She frequently has thoughts racing through her mind. She constantly feels sad or depressed. She constantly feels anxiety. She freque ntly notices parts of her body jerk. She never kicks during the night. She n ever feels crawling or aching feelings in her legs. She occasionally feels leg pain at night. She never has morning jaw pain, nor does she grind her teeth at night. She constantly feels bothered by pain during the day, is rarely awakened by pain during the night. She frequently wakes up feeling stiff in the morning, constantly wakes feeling sore or achy in the morning. She constantly awakens with pain in her neck, spine, or joints. She always has memory and concentration problems. She frequently has excessive daytime sleepiness. Normal bedtime is 12:00 a.m.. She is not sure how long she stays awake before sleep onset. She thinks that she wakes once at night, rolls over, sometimes goes to the bathroom. Her normal wake time is 6:30 a.m.. On weekends, bedtime is later, between 1:00 a.m. and 2:00 a.m., waking at 9:00 a.m.. She does not generally take naps. A short nap lasting 10-15 minutes is not refreshing. She is usually drowsy for 3 hours after waking. She feels better in the evening compared to other times of day. She estimates getting 6 hours of sleep at night. Habits:??Tobacco: A half pack per day Caffeine: 6 servings daily Alcohol: none Recreational substances: none PMFSH Past Medical History Medical History Normal endoscopic ultrasound of upper GI tract IBS (irritable bowel syndrome) Gallstone pancreatitis Vaginismus Hidradenitis Yeast vaginitis Bartholin's gland abscess Low back pain Muscle strain of left upper back Libido, decreased Hidradenitis suppurativa Seronegative rheumatoid arthritis of multiple sites (~11/2016) SAPHO syndrome (~11/2016) Synovitis, acne, pustulosis, hyperostosis, osteitis (SAPHO) syndrome is a rare chronic inflammatory disorder of bone, joint, and skin characterized by synovitis, osteitis, hyperostosis, and enthesitis, typically with pain, swelling, and tenderness in affected areas. Pustulosis palmaris et plantaris Bilateral carpal tunnel syndrome Surgical History Surgical History History of repair of anterior cruciate ligament of left knee Previous section History of cholecystectomy Family History Family History Grandparent Diabetes mellitus Family history of cardiovascular disease Father Hypertension Family history of elevated blood lipids Social History Social History Smoking packs per day: 0.5 Smoking cigarettes per day: 10.0 Years smoked: 6 Smoking pack-years: 3.00 Smoking status: Current every day smoker Tobacco type: cigarettes Alcohol intake: current Alcohol use details: rare Substance use: current Substance use type: marijuana Other substance usage details: DAILY Last use: yesterday Do You Feel Safe in your Home?: Yes Lack of Transportation: No Lack of Food: Sometimes True Current Housing: I Have Housing Concerned About Future Housing: No Difficulty Paying Gas/Electric Bills: No Difficulty Paying for Meds: No Currently Unemployed: No Education: Bachelor's Degree Difficulty w/ Childcare or Family Care: No Living arrangements: with family Gender identity (if verbalized by the patient): Female Spiritual care concerns: No Medications Home Medications ?Medication ?Instructions ?Recorded ?Confirmed ?Type buspirone 5 mg tablet 10 mg (2 x 5 mg) PO TID PRN 03/12/24 04/16/25 Rx anxiety #60 tabs albuterol sulfate 90 mcg/actuation 2 puff inhalation Q ID PRN 10/01/24 04/16/25 Rx aerosol inhaler shortness of breath or wheez ing #8 grams norethindrone 1.5 mg-ethinyl 1 tablet PO DAILY #84 tab s 12/30/24 04/16/25 Rx estradiol 30 mcg(21)/iron 75 mg(7) tablet (Loestrin Fe 1.5/30 (28-Day)) ondansetron 4 mg disintegrating 4 mg PO Q8H PRN nausea and 01/23/25 04/16/25 Rx tablet vomiting #7 tabs duloxetine 30 mg capsule,delayed 30 mg PO DAILY #90 ca ps 02/05/25 04/16/25 Rx release fluticasone 500 mcg-salmeterol 50 1 inh inhalation Q12 H #60 ea 02/05/25 04/16/25 Rx mcg/dose blistr powdr for inhalation (Advair Diskus) gabapentin 300 mg capsule 300 mg PO BID #180 caps 01/1204/16/25 Rx cholecalciferol (vitamin D3) 25 25 mcg PO DAILY #90 ca ps 02/06/25 04/16/25 Rx mcg (1,000 unit) capsule ferrous gluconate 324 mg (37.5 mg 324 mg PO DAILY #90 tabs 02/06/25 04/16/25 Rx iron) tablet hearing aids #1 ea 02/26/25 04/16/25 Rx famotidine 20 mg tablet (Pepcid) 20 mg PO DAILY #90 ta bs 03/05/25 04/16/25 Rx metformin 500 mg tablet,extended See Rx Instructions P O BID #180 04/02/25 04/16/25 Rx release 24 hr tabs zolpidem 10 mg tablet 10 mg PO QHS #1 tablet 04/1604/16/25 Rx Sleep Procedure A full night polysomnogram using the [employer] multi-channel system recorded the standard physiologic parameters including EEG, EOG, submentalis EMG, anterior tibialis EMG, EKG, body position, nasal and oral airflow using nasal pressure sensor and thermistor. Respiratory parameters of chest and abdominal movements were recorded with Respiratory Inductance Plethysmography belts. Oxygen saturation was recorded by pulse oximetry. Video monitoring was also performed. Sleep stages, periodic limb movements, and EEG arousals were scored in 30 second epochs according to the criteria of the AASM Scoring Manual. The Apnea-Hypopnea Index was calculated using CMS guidelines for definition of hypopnea while scoring respiratory events. Sleep Architecture The total recording time was 417.8 minutes. The total sleep time was 399.0 minutes. Sleep latency was 2.8 minutes. REM latency was 138.5 minutes. Sleep efficiency was 95.5%. The patient had 27 awakenings for an awakening index of 4.1. Wake after sleep onset time was 16.0 minutes. The patient spent 19.0 minutes, 4.8% of total sleep time in Stage N1. The patient spent 264.0 minutes, 66.2% in Stage N2. The patient spent 93.0 minutes, 23.3% in Stage N3. The patient spent 23.0 minutes, 5.8% in Stage REM sleep. Respiratory Analysis The patient had 40 hypopneas, 10 obstructive apneas, 5 mixed apneas, and no central apneas for an overall Apnea Hypopnea Index of 8.3. The REM Apnea Hypopnea Index was 52.2. The NREM Apnea Hypopnea Index was 5.6. The patient had a Central Apnea Hypopnea Index of 0. There were no Respiratory Effort Related Arousals. The Respiratory Disturbance Index is 9.3 events per hour. There was no evidence of Uriel-Farris Respirations. Arousals There were 210 total arousals for an arousal index of 31.6. There were 111 spontaneous arousals for an index of 16.7. There were 14 arousals due to respiratory events for an index of 2.1. There were 14 arousals due to periodic limb movements for an index of 2.1. There were 38 arousals due to isolated limb movements for an index of 5.7. Periodic Limb Movements The patient had 54 isolated limb movements with an index of 8.1. The patient had 25 periodic limb movements with an index of 3.8. Patient had a total of 79 limb movements with a total limb movement index of 11.9. Oximetry Data The patient had an average oxygen saturation of 92.5% in sleep with a minimum oxygen saturation of 84% and a maximum oxygen saturation of 98%. The patient had 54 oxygen desaturations that were 4% or greater resulting in an Oxygen Desaturation Index of 8.1. The patient spent 4 minutes, 1% of total sleep time with an oxygen saturation below 88%. Snoring Profile Snoring was moderate to very loud. Cardiac Profile EKG showed normal sinus rhythm; patient had an average pulse rate of 69 bpm with a minimum pulse of rate of 50 bpm and a maximum pulse rate of 97 bpm. No arrhythmias noted. EEG Profile Unremarkable, no evidence of seizures. Assessment and Plan Assessment and Plan (1) Obstructive sleep apnea (adult) (pediatric): Code(s): G47.33 - Obstructive sleep apnea (adult) (pediatric) Status: Acute Assessment and Plan: This basic polysomnogram on 05/29/2025 shows mild obstructive sleep apnea, the apnea-hypopnea index is 8.3 ( p>4%) and using 3% criteria, (p>3%) the apnea- hypopnea index is 9.6. In supine REM, her apnea hypopnea index was 52.2. Her lowest saturation was 84%, and she spent 4 minutes below 88%. She has medical comorbidities including anxiety and depression. With these conditions, she is a candidate for treatment with PAP therapy or an oral device. PAP therapy is the gold standard. She did not have any central apneas. She is a candidate for autoPAP. Her history indicates that she was diagnosed in 2019 with obstructive sleep apnea, was not successful using PAP. For this reason, she would benefit from a dedicated CPAP titration with a sleep aid, no naps on day of testing. Clinical correlation is recommended. If she decides to use APAP, she can be prescribed Resmed AirSense 11 AutoPAP 5-15 cm H2O, CPAP mask/filters/tubing and humidifier chamber. This should be used with all episodes of sleep. Compliance should be reviewed within 31-90 days of starting therapy for usage greater than 4 hours per night greater than 70% of the nights. The patient should be asked about symptoms such as excessive daytime sleepiness, quality of sleep, decreased nocturia, increased mental functioning such as memory, mood, and concentration. If she decides to have a CPAP titration in the sleep lab, she should have no naps on the day of testing, and she should have an effective sleep aid available, if needed, to use at the start of the study. consider zolpidem 5 mg or 10 mg. Other choices may include eszopiclone 2 mg to 3 mg. She should be strongly encouraged not to drive while sleepy. Normal adults need 7-8 hours of sleep at night to be fully rested. BMI is 31. Weight management is advised. Clinical data suggests that weight loss of 10% can reduce the severity of respiratory events and snoring and improve AHI by as much as 25%. she had excessive limb movements, however these did not cause arousals during sleep. Data The data obtained during this sleep study is adequate for interpretation. Certification This sleep study has been reviewed by a board certified sleep medicine physician.
[2025-07-01 16:21] VITALS: BMI 31.1
== END 2025-05-30 06:56 | disposition home or self-care (01) ==
LOC: ANHCSM 07:49
PROVIDERS: PCP Family Medicine; Visit Provider Family Medicine
DX: G47.33 Obstructive sleep apnea (adult) (pediatric) (principal)
CPT/HCPCS: 95810